=== PATIENT | female | born 1945 | race Caucasian/White ===

== ENCOUNTER 2017-05-03 03:17 | Emergency (ER) | payer OTHER ==
[~2017-05-03] VITALS: Ht 170.2 cm; Wt 78.0 kg
[~2017-05-03 03:17] MED LIST: ASPIR 8181 MG PO; ATORVASTATIN CA40 MG PO; D3-5050000 UNIT PO; ISOSORBIDE MONO30 MG PO; LOSARTAN-HCTZ1 EAC2 PO; METOCLOPRAMIDE10 MG PO; METOPROLOL SUCC50 MG PO; NORVASC5 MG PO; OMEPRAZOLE40 MG PO; TRAZODONE HCL50 MG PO; VALIUM5 MG PO
[2017-05-03] MEDS ORDERED: HYDRALAZINE HCL 20 MG/ML VIAL IV STA (03:30)
[2017-05-03] MEDS ORDERED: ONDANSETRON HCL INJ 2 MG/ML VIAL IV STA (03:32)
[2017-05-03] MEDS ORDERED: HYDROMORPHONE 1MG/1ML INJ IV STA (03:32)
[2017-05-03 03:53] LABS: BASOPHILS # (AUTO) 0.1 (0.0-0.1); BASOPHILS % 0.6 % (0.0-1.0); EOSINOPHILS # (AUTO) 0.3 (0.0-0.4); EOSINOPHILS % 2.7 % (0.0-6.0); HEMATOCRIT 33.9 % (34.2-44.1); HEMOGLOBIN 11.3 g/dL (12.0-16.0); LYMPHOCYTES # (AUTO) 1.9 (1.0-3.2); LYMPHOCYTES % 20.5 % (18.0-39.1); MEAN CORPUSCULAR HEMOGLOBIN 28.8 pg (28-32); MEAN CORPUSCULAR HGB CONC 33.3 g/dL (31-35); MEAN CORPUSCULAR VOLUME 86.3 fL (81-99); MONOCYTES # (AUTO) 0.5 (0.2-0.8); MONOCYTES % 5.5 % (4.4-11.3); NEUTROPHILS # (AUTO) 6.6 (2.1-6.9); NEUTROPHILS % 70.3 % (38.7-80.0); PLATELET COUNT 82 x10e3/uL (140-360); RED BLOOD COUNT 3.93 x10e6/uL (3.6-5.1); RED CELL DISTRIBUTION WIDTH 14.3 % (11.7-14.4)
[2017-05-03 04:09] LABS: ALBUMIN 2.9 g/dL (3.5-5.0); ALBUMIN/GLOBULIN RATIO 0.8 (0.8-2.0); CALCIUM 9.4 mg/dL (8.4-10.2); CREATININE, SERUM 2.51 mg/dL (0.57-1.11)
[2017-05-03 04:15] LABS: CREATINE KINASE MB 1.2 ng/mL (0.00-5.00); TROPONIN I 0.03 ng/mL (0-0.300)
--- NOTE | 2017-05-03 04:36 | Diagnostic Imaging Report ---
EXAMINATION: Head CT without contrast. HISTORY:Severe headache. COMPARISON:CT brain from 05/31/2016 and MRI brain M 06/03/2016. TECHNIQUE: Multidetector axial images were obtained from the foramen magnum to the vertex without contrast. The images were reconstructed using brain and bone algorithms. Thin section brain images were reformatted into coronal and sagittal planes. Intravenous contrast: None IMAGE QUALITY: Acceptable. FINDINGS: Skull/scalp: Unchanged expected postoperative changes from prior suboccipital craniectomy and resection of the posterior arch of C1. Parenchyma: Nonspecific few, scattered supratentorial white matter hypodensity are likely related to small vessel ischemic changes. No acute hemorrhage, mass or acute major vascular territorial infarct. Arteries: No density suggestive of thrombosis. Dural sinuses: No abnormal density suggestive of thrombosis. Ventricles: No hydrocephalus or displacement. Extra-axial spaces: No abnormal density. Brain volume: Normal for age. Craniocervical junction: No mass, Chiari malformation, or basilar invagination. Sella: No mass. Paranasal/mastoid sinuses: Imaged portions unremarkable. IMPRESSION: No acute intracranial abnormality. Expected postoperative changes from prior suboccipital craniectomy/resection of posterior arch of C1. Mild generalized age-related cerebral volume loss and mild supratentorial white matter microvascular ischemic changes. Signed by: Dr. Martha Moore M.D. on 05/03/2017 4:32 AM
--- NOTE | 2017-05-03 04:54 | Diagnostic Imaging Report ---
CHEST SINGLE (PORTABLE), 05/03/2017 3:30 AM Technique: CHEST SINGLE (PORTABLE) Comparison: 05/31/2016. Clinical history: Shortness of breath Findings: Stable appearance of the heart, mediastinum, lungs and pleural spaces. Incidental right midlung calcified granuloma. Impression: 1. Lines/Tubes: None 2. No acute abnormality. Signed by: Dr Leann Russo MD on 05/03/2017 4:50 AM
[2017-05-03] MEDS ORDERED: PROMETHAZINE 12.5MG/ NACL 0.9% 12.5 MG/50 ML BAG IV ONE (05:00)
== END 2017-05-03 06:20 | disposition home or self-care (01) ==
LOC: ER 03:17
DX: R51 Headache (principal); E11.22 Type 2 diabetes mellitus with diabetic chronic kidney disease; I12.9 Hypertensive chronic kidney disease with stage 1 through stage 4 chronic kidney disease, or unspecified chronic kidney disease; N18.9 Chronic kidney disease, unspecified
CPT/HCPCS: 36415; 70450; 71010; 80053; 82550; 82553; 84484; 85025; 90940; 93005; 94760; 96374; 96375; 99284; J0360; J1170; J2405; J2550

== ENCOUNTER 2017-05-15 15:12 | Emergency (ER) | payer OTHER ==
[~2017-05-15] VITALS: Ht 170.2 cm; Wt 78.0 kg
[2017-05-15] MEDS ORDERED: CLONIDINE HCL 0.2 MG TAB PO ONE (16:00)
[2017-05-15 16:40] LABS: BASOPHILS # (AUTO) 0.1 (0.0-0.1); BASOPHILS % 0.6 % (0.0-1.0); EOSINOPHILS # (AUTO) 0.4 (0.0-0.4); EOSINOPHILS % 4.4 % (0.0-6.0); HEMATOCRIT 34.5 % (34.2-44.1); HEMOGLOBIN 11.3 g/dL (12.0-16.0); LYMPHOCYTES # (AUTO) 2.4 (1.0-3.2); LYMPHOCYTES % 25.3 % (18.0-39.1); MEAN CORPUSCULAR HEMOGLOBIN 28.6 pg (28-32); MEAN CORPUSCULAR HGB CONC 32.8 g/dL (31-35); MEAN CORPUSCULAR VOLUME 87.3 fL (81-99); MONOCYTES # (AUTO) 0.6 (0.2-0.8); MONOCYTES % 6.5 % (4.4-11.3); NEUTROPHILS % 62.9 % (38.7-80.0); PLATELET COUNT 62 x10e3/uL (140-360); RED BLOOD COUNT 3.95 x10e6/uL (3.6-5.1); RED CELL DISTRIBUTION WIDTH 13.9 % (11.7-14.4)
--- NOTE | 2017-05-15 16:45 | Diagnostic Imaging Report ---
PROCEDURE: CHEST SINGLE (PORTABLE) COMPARISON: Chest x-ray 05/03/17 INDICATIONS: high blood pressure FINDINGS: Portable frontal image obtained at 1418 hrs. LUNGS: Diffusely hyperinflated. No consolidation or vascular congestion. Calcified granulomata of the right upper lobe are stable. PLEURA: No effusions or pneumothorax. HEART \T\ MEDIASTINUM: The heart is normal in size. Calcifications of the aortic arch are stable. BONES \T\ SOFT TISSUES: No focal osseous lesions. The soft tissues are unremarkable. CONCLUSION: Stable pulmonary hyperinflation suggestive of COPD. Healed granulomatous inflammation. Dictated by: Dinorah Lindsay M.D. on 05/15/2017 at 16:54 Electronically approved by: Dinorah Lindsay M.D. on 05/15/2017 at 16:54
[2017-05-15 16:58] LABS: ALBUMIN 2.7 g/dL (3.5-5.0); ALBUMIN/GLOBULIN RATIO 0.7 (0.8-2.0); ANION GAP 14.8 mmol/L (8-16); CALCIUM 9.1 mg/dL (8.4-10.2); CREATININE, SERUM 2.61 mg/dL (0.57-1.11); POTASSIUM 3.8 mmol/L (3.5-5.1)
[2017-05-15 17:04] LABS: CREATINE KINASE MB 0.8 ng/mL (0.00-5.00); TROPONIN I 0.023 ng/mL (0-0.300)
[2017-05-15] MEDS ORDERED: ONDANSETRON HCL INJ 2 MG/ML VIAL IV STA ×2 (17:41→18:37)
[2017-05-15] MEDS ORDERED: HYDROMORPHONE 2MG/ML INJ ONE (17:54)
[2017-05-15] MEDS ORDERED: HYDROMORPHONE 2MG/ML INJ IV ONE (18:00)
[2017-05-15] MEDS ORDERED: NIFEDIPINE 10 MG CAP SL STA (19:16)
[2017-05-15 21:11] VITALS: BP 151/86
== END 2017-05-15 21:12 | disposition home or self-care (01) ==
LOC: ER 15:12
DX: R51 Headache (principal); I10 Essential (primary) hypertension; E11.9 Type 2 diabetes mellitus without complications; G40.909 Epilepsy, unspecified, not intractable, without status epilepticus
CPT/HCPCS: 36415; 71010; 80053; 82550; 82553; 83880; 84484; 85025; 93005; 99284; J1170; J2405

== ENCOUNTER 2017-05-30 09:42 | Emergency (ER) | payer OTHER ==
[~2017-05-30] VITALS: Ht 170.2 cm; Wt 78.0 kg
[2017-05-30] MEDS ORDERED: ONDANSETRON HCL INJ 2 MG/ML VIAL IV STA (10:30)
[2017-05-30] MEDS ORDERED: SODIUM CHLORIDE 0.9% 500ML 500 ML IV STA (10:30)
[2017-05-30 11:22] LABS: BASOPHILS # (AUTO) 0.1 (0.0-0.1); BASOPHILS % 0.8 % (0.0-1.0); EOSINOPHILS # (AUTO) 0.3 (0.0-0.4); EOSINOPHILS % 3.3 % (0.0-6.0); HEMATOCRIT 42.3 % (34.2-44.1); HEMOGLOBIN 13.7 g/dL (12.0-16.0); LYMPHOCYTES # (AUTO) 2.6 (1.0-3.2); LYMPHOCYTES % 25.9 % (18.0-39.1); MEAN CORPUSCULAR HEMOGLOBIN 28.5 pg (28-32); MEAN CORPUSCULAR HGB CONC 32.4 g/dL (31-35); MEAN CORPUSCULAR VOLUME 87.9 fL (81-99); MONOCYTES # (AUTO) 0.6 (0.2-0.8); MONOCYTES % 5.5 % (4.4-11.3); NEUTROPHILS # (AUTO) 6.5 (2.1-6.9); NEUTROPHILS % 64.1 % (38.7-80.0); PLATELET COUNT 70 x10e3/uL (140-360); RED BLOOD COUNT 4.81 x10e6/uL (3.6-5.1); RED CELL DISTRIBUTION WIDTH 13.8 % (11.7-14.4)
--- NOTE | 2017-05-30 11:23 | Diagnostic Imaging Report ---
Examination: CT BRAIN WO History:Headache x4 days, elevated blood pressure Comparison studies:CT brain, 05/03/2017 Technique: Axial images were obtained from the skull base to the vertex. Coronal and sagittal images reconstructed from the axial data. Findings: Scalp: No abnormalities. Bones: Postoperative changes from prior suboccipital craniectomy. Brain sulci: Appropriate for age. Ventricles: Normal in size and configuration. No hydrocephalus. Extra-axial space: No abnormalities. Parenchyma: No abnormal densities. No masses, hemorrhage, acute or chronic vascular insults. Sellar/suprasellar region: No abnormalities. Craniocervical junction: Patent foramen magnum. No Chiari one malformation. Incidental findings: Vascular calcifications at the carotid siphons.. Impression: 1. No acute intracranial abnormalities. Particularly no hemorrhage. 2. Postoperative changes from prior suboccipital craniectomy. The preliminary report was reviewed and a final report issued by Dr. Kent neuroradiologist on 05/30/2017 at 3:59 PM. Signed by: Dr. Dang Kent M.D. on 05/30/2017 3:59 PM
[2017-05-30 11:42] LABS: ALBUMIN 3.2 g/dL (3.5-5.0); ALBUMIN/GLOBULIN RATIO 0.7 (0.8-2.0); ANION GAP 16.4 mmol/L (8-16); CALCIUM 9.3 mg/dL (8.4-10.2); CREATININE, SERUM 2.55 mg/dL (0.57-1.11); POTASSIUM 4.4 mmol/L (3.5-5.1)
[2017-05-30 11:50] LABS: CREATINE KINASE MB 0.8 ng/mL (0.00-5.00); TROPONIN I 0.035 ng/mL (0-0.300)
[2017-05-30] MEDS ORDERED: HYDROCODONE/APAP 7.5MG-325MG 1 EA TAB PO ONE (12:30)
[2017-05-30 14:28] LABS: BILIRUBIN,URINE NEGATIVE (NEGATIVE); KETONES,URINE NEGATIVE (NEGATIVE); LEUKOCYTE ESTERASE ,URINE NEGATIVE (NEGATIVE); NITRITE,URINE NEGATIVE (NEGATIVE); PROTEIN,URINE DIPSTICK 3+ (NEGATIVE); URINE UROBILINOGEN 0.2 mg/dL (0.2 - 1)
[2017-05-30 14:29] LABS: CLARITY,URINE SL CLOUDY (CLEAR); COLOR,URINE YELLOW (YELLOW)
[2017-05-30 14:45] LABS: BACTERIA,URINE RARE /HPF; EPITHELIAL CELLS,URINE RARE /LPF; RBC,URINE 0-5 /HPF (0-5)
== END 2017-05-30 15:09 | disposition home or self-care (01) ==
LOC: ER 09:42
DX: G44.89 Other headache syndrome (principal); R11.2 Nausea with vomiting, unspecified
CPT/HCPCS: 36415; 70450; 80053; 81001; 82550; 82553; 83690; 84484; 85025; 87086; 99284; J2405; J7040

== ENCOUNTER 2018-03-08 16:33 | Emergency (ER) | payer OTHER ==
[~2018-03-08] VITALS: Ht 170.2 cm; Wt 91.6 kg
--- OUTSIDE RECORDS SUMMARY | 2018-03-08 16:37 | XMS REPORT | Continuity of Care Document ---
Author Author Ericka heraclio Organization Interface Address Unknown Phone Unavailable Problems Problem Status Onset Date Classification Date Reported Comments Source UNK Active 10/02/2017 [facility] I70.213 Active 10/02/2017 [facility] CLAUDICATION Active 02/25/2017 [facility] CCL/LLE ANGIO/DX: CLAUDICATION Active 02/25/2017 [facility] LATH HAND Active 10/20/2016 [facility] CCL/LATH HAND STENT OF RCA/DX: LATH HAND Active 10/20/2016 [facility] POSITIVE STRESS TEST, ANGINA Active 09/25/2016 [facility] CCL/LHC W/ POSS/DX: POSITIVE STRESS TEST Active 09/25/2016 [facility] R51 - HEADACHE G93.5 - COMPRESSION OF BR Active 05/30/2016 [facility] J44.9 - CHRONIC OBSTRUCTIVE PULMONARY Active 02/25/2016 [facility] Z12.11 K21.9 Active 02/27/2015 [facility] THROMBOCYTOPENIA Active 04/20/2014 [facility] Back pain Active Problem 11/24/2017 [facility] Diabetes Active Problem 11/24/2017 [facility] GERD (<span [id number]">Confirmed</span>) Active Problem 11/24/2017 [facility] Hypertension Active Problem 11/24/2017 [facility] Migraine headache Resolved Problem 11/24/2017 [facility] Thrombocytopenia Resolved Problem 11/24/2017 [facility] Abdominal pain Resolved Problem 11/24/2017 [facility] COPD Active Problem 11/24/2017 [facility] Seizure Resolved Problem 05/08/2017 [facility] Seizure Resolved Problem 03/12/2017 [facility] Type 2 diabetes mellitus with diabetic peripheral angiopathy without gangrene 11/24/2017 [facility] Gastro-esophageal reflux disease without esophagitis 11/24/2017 [facility] Atherosclerotic heart disease of [place] coronary artery without angina pectoris 11/24/2017 [facility] Cough 11/24/2017 [facility] Petit mal convulsion Active Problem 11/24/2017 [facility] Atherosclerosis of [place] arteries of extremities with intermittent claudication, bilateral legs 11/14/2017 [facility] ENCOUNTER FOR SCREENING FOR MALIGNANT NE Active [facility] GASTRO-ESOPHAGEAL REFLUX DISEASE WITHOUT Active [facility] 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 Active [facility] CUTANEOUS ABSCESS, UNSPECIFIED Active [facility] HEADACHE Active [facility] ANEMIA, UNSPECIFIED Active [facility] ESSENTIAL (PRIMARY) HYPERTENSION Active [facility] HYPOTHYROIDISM, UNSPECIFIED Active [facility] VITAMIN D DEFICIENCY, UNSPECIFIED Active [facility] NONTOXIC SINGLE THYROID NODULE Active [facility] HYPERLIPIDEMIA, UNSPECIFIED Active [facility] HYPO-OSMOLALITY AND HYPONATREMIA Active [facility] HYPERKALEMIA Active [facility] Medications Medication Details Route Status Patient Instructions Ordering Provider Order Date Source Ciprofloxacin 250 MG Oral Tablet [Cipro] 250 mg=1 tab, PO, Q24H, for UTI, X 5 day, # 5 tab, 0 Refill(s) Active 11/11/2017 [facility] Insulin Glargine 100 UNT/ML Injectable Solution 10 unit, SUB-Q, Daily, 0 Refill(s) Active 11/11/2017 [facility] pantoprazole 40 mg oral enteric coated tablet 40 mg=1 tab, PO, Daily, 0 Refill(s) Active 11/11/2017 [facility] metoprolol tartrate 25 mg oral tablet 25 mg=1 tab, PO, Q12H, 0 Refill(s) Active 11/11/2017 [facility] Hydralazine Hydrochloride 25 MG Oral Tablet 25 mg=1 tab, PO, TID, 0 Refill(s) Active 11/11/2017 [facility] Symbicort 160/4.5 inhalation aerosol with adapter 2 inhalation, INHALATION, RBID, 0 Refill(s) Active 11/11/2017 [facility] Albuterol 0.833 MG/ML / Ipratropium [place] 0.167 MG/ML Inhalant Solution [DuoNeb] 3 mL, NEB, PRN, PRN Respiratory Pathway, 0 Refill(s) Active 11/11/2017 [facility] atorvastatin 40 mg oral tablet 80 mg=2 tab, PO, Bedtime, 0 Refill(s) Active 11/11/2017 [facility] Aspirin 81 MG Chewable Tablet 81 mg=1 tab, PO, Daily, 0 Refill(s) Active 11/11/2017 [facility] cefepime 1 gm, Route: IVPB, [id number], Dosing Weight 90, kg, Start date: 11/10/17 11:00:00 CDT, Duration: 30 day, Stop date: 12/09/17 11:00:00 CDT, ABX Indication: Urinary Tract InfectionNotes: (Same As: Maxipime) MEDICATION WASTE Product Size: 1000 mg Product Wasted: ___ mg No Longer Active 11/10/2017 [facility] Zofran 4 mg, 1 tab, Route: PO, Drug form: TAB, Q8H, Dosing Weight 90, kg, PRN Nausea, Start date: 11/10/17 9:24:00 CDT, Duration: 30 day, Stop date: 12/10/17 9:23:00 CDTNotes: (Same as: Zofran) No Longer Active 11/10/2017 [facility] Hydralazine Hydrochloride 25 MG Oral Tablet 25 mg, 1 tab, Route: PO, Drug form: TAB, TID, Dosing Weight 90, kg, Start date: 11/09/17 17:00:00 CDT, Duration: 30 day, Stop date: 12/09/17 13:00:00 CDTNotes: (Same as: Apresoline) May interfere w/enteral feedings Take With Food. No Longer Active 11/09/2017 [facility] Dulcolax Laxative 10 mg, 1 supp, Route: UT, Drug form: SUPP, Daily, Dosing Weight 90, kg, PRN Constipation, Start date: 11/09/17 8:37:00 CDT, Duration: 30 day, Stop date: 12/09/17 8:36:00 CDTNotes: (Same As: Dulcolax, [place]-Lax) No Longer Active 11/09/2017 [facility] magnesium citrate 58.2 MG/ML Oral Solution 300 ml, Route: PO, Drug Form: LIQ, Dosing Weight 90, kg, ONCE, Start date: 11/09/17 8:37:00 CDT, Stop date: 11/09/17 8:37:00 CDTNotes: (Same as: Citrate of Magnesia) Concentration: 1.745 gm / 30 mL Inactive 11/09/2017 [facility] Vancomycin 750 mg, Route: IVPB, ONCE, Dosing Weight 90, kg, Start date: 11/08/17 23:48:00 CDT, Stop date: 11/08/17 23:48:00 CDT, ABX Indication: BacteremiaNotes: TIME CRITICAL MEDICATION (Same As: Vancocin) Infus ion rate 2001 mg: infuse over 2.5 hours For adult patients only: Round to nearest 250 mg per Medical Staff approval MEDICATION WASTE Product Size: 1000 mg Product Wasted: ___ mg No Longer Active 11/09/2017 [facility] Morphine 6 mg, 3 mL, Route: PO, Drug form: SOLN, Q6H, Dosing Weight 90, kg, PRN Pain Score 7-10, Start date: 11/08/17 23:36:00 CDT, Stop date: 12/08/17 23:35:00 CDTNotes: (Same as:MORPhine Sulfate) No Longer Active 11/09/2017 [facility] Hydralazine Hydrochloride 25 MG Oral Tablet 25 mg, Route: PO, Drug form: TAB, TID, Dosing Weight 90, kg, Start date: 11/08/17 9:00:00 CDT, Duration: 30 day, Stop date: 12/07/17 17:00:00 CDT No Longer Active 11/08/2017 [facility] metoprolol tartrate 25 mg, 1 tab, Route: PO, Drug form: TAB, Q12H, Dosing Weight 90, kg, Start date: 11/07/17 21:00:00 CDT, Duration: 30 day, Stop date: 12/07/17 9:00:00 CDTNotes: (Same as: Lopressor) No Longer Active 11/08/2017 [facility] Hydralazine Hydrochloride 10 MG Oral Tablet 10 mg, 1 tab, Route: PO, Drug form: TAB, TID, Dosing Weight 90, kg, Start date: 11/07/17 17:30:00 CDT, Duration: 30 day, Stop date: 12/07/17 16:00:00 CDTNotes: (Same as: Apresoline) May interfere w/enteral feedings. Take With Food No Longer Active 11/07/2017 [facility] Melatonin 3 MG Extended Release Tablet 3 mg, 1 tab, Route: PO, Drug Form: TAB, Dosing Weight 90, kg, Bedtime, Start date: 11/06/17 21:00:00 CDT, Duration: 30 day, Stop date: 12/05/17 21:00:00 CDTNotes: (Same as: Melatonin) No Longer Active 11/07/2017 [facility] Symbicort 160/4.5 inhalation aerosol with adapter 2 inhalation, Route: INHALATION, Drug Form: AERO/A, Dosing Weight 90, kg, RBID, Start date: 11/06/17 17:15:00 CDT, Duration: 30 day, Stop date: 12/06/17 8:00:00 CDTNotes: (Same as: Symbicort) WASTE: Aerosol - Return to Pharmacy No Longer Active 11/06/2017 [facility] Tylenol 650 mg, 2 tab, Route: PO, Drug form: TAB, Q6H, Dosing Weight 90, kg, PRN For Temp > 100.4 F, Start date: 11/06/17 15:35:00 CDT, Duration: 30 day, Stop date: 12/06/17 15:34:00 CDTNotes: Do not exceed 4 gm/day. (Same as: Tylenol) No Longer Active 11/06/2017 [facility] tramadol hydrochloride 50 MG Oral Tablet 50 mg, 1 tab, Route: PO, Drug form: TAB, Q12H, Dosing Weight 90, kg, PRN Pain Score 1-3, Start date: 11/06/17 10:54:00 CDT, Duration: 30 day, Stop date: 12/06/17 10:53:00 CDTNotes: Not to exceed 400mg/day. (Same As: Ultram) No Longer Active 11/06/2017 [facility] Ondansetron 8 mg, Route: IV, ONCE, Dosing Weight 90, kg, Priority: STAT, Start date: 11/05/17 9:51:00 CDT, Stop date: 11/05/17 9:51:00 CDT Inactive 11/05/2017 [facility] Valium 2 mg, 1 tab, Route: PO, Drug form: TAB, BID, Dosing Weight 90, kg, PRN as needed for anxiety, Priority: STAT, Start date: 11/05/17 9:51:00 CDT, Duration: 7 day, Stop date: 11/12/17 9:50:00 CDTNotes: (Same as: Valium) No Longer Active 11/05/2017 [facility] Omeprazole 40 mg, Route: PO, Drug form: DRC, Daily, Dosing Weight 90, kg, Start date: 11/05/17 9:00:00 CDT, Duration: 30 day, Stop date: 12/04/17 9:00:00 CDT No Longer Active 11/05/2017 [facility] Insulin Glargine 100 UNT/ML Injectable Solution 10 unit, 0.1 mL, Route: SUB-Q, Drug form: SOLN, Daily, Dosing Weight 90, kg, Start date: 11/05/17 9:00:00 CDT, Duration: 30 day, Stop date: 12/04/17 9:00:00 CDTNotes: (Same as: Joseph) Do not hold insulin without contacting prescriber WASTE: F/P - Black; E - TV Volume Wizard Appsh Bin "single patient use only" No Longer Active 11/05/2017 [facility] Protonix 40 mg, 1 tab, Route: PO, Drug form: ECTAB, Daily, Start date: 11/05/17 9:00:00 CDT, Duration: 30 day, Stop date: 12/04/17 9:00:00 CDTNotes: Tablet should not be chewed or crushed. (Same as: Protonix) No Longer Active 11/05/2017 [facility] Morphine 12 mg, 6 mL, Route: PO, Drug form: SOLN, Q6H, Dosing Weight 90, kg, PRN Pain Score 1-3, Start date: 11/05/17 8:03:00 CDT, Duration: 30 day, Stop date: 12/05/17 8:02:00 CDTNotes: (Same as:MORPhine Sul fate) No Longer Active 11/05/2017 [facility] Insulin Lispro 4 unit, 0.04 mL, Route: SUB-Q, Drug form: SOLN, Bedtime, Dosing Weight 90, kg, PRN Blood Glucose Results, Start date: 11/04/17 22:05:00 CDT, Duration: 30 day, Stop date: 12/04/17 22:04:00 CDTNotes: (Same as: Humalog ) Roll in palms of hands gently; Do not shake `vigorously. "Single Patient Use Only " WASTE: F/P - Black; E - Municipal Trash Bin Stable for 28 days at room temperature. Expires in days from Date No Longer Active 11/05/2017 [facility] Dextrose 50% Syringe 25 mL, Route: IVP, Dosing Weight 90, kg, PRN, PRN Blood Glucose Results, Start date: 11/04/17 22:05:00 CDT, Duration: 30 day, Stop date: 12/04/17 22:04:00 CDT Inactive 11/05/2017 [facility] Glucagon 1 mg, Route: IM, PRN, Dosing Weight 90, kg, PRN Blood Glucose Results, Start date: 11/04/17 22:05:00 CDT, Duration: 30 day, Stop date: 12/04/17 22:04:00 CDT Inactive 11/05/2017 [facility] atorvastatin 80 mg, 2 tab, Route: PO, Drug form: TAB, Bedtime, Dosing Weight 90, kg, Start date: 11/04/17 21:00:00 CDT, Duration: 30 day, Stop date: 12/03/17 21:00:00 CDTNotes: (Same as: Lipitor) No Longer Active 11/05/2017 [facility] Aspirin 81 MG Chewable Tablet 81 mg, 1 tab, Route: PO, Drug form: CHEWTAB, Daily, Dosing Weight 90, kg, Start date: 11/04/17 18:47:00 CDT, Duration: 30 day, Stop date: 12/04/17 9:00:00 CDTNotes: Take with food. No Longer Active 11/04/2017 [facility] Dextrose 50% Syringe 25 gm, 50 mL, Route: IVP, Drug Form: INJ, Dosing Weight 90, kg, PRN, PRN Blood Glucose Results, Start date: 11/04/17 18:02:00 CDT, Duration: 30 day, Stop date: 12/04/17 18:01:00 CDT No Longer Active 11/04/2017 [facility] Glucagon 1 mg, Route: IM, Drug form: PDR/INJ, PRN, Dosing Weight 90, kg, PRN Blood Glucose Results, Start date: 11/04/17 18:02:00 CDT, Duration: 30 day, Stop date: 12/04/17 18:01:00 CDT No Longer Active 11/04/2017 [facility] Insulin Lispro 1 unit, 0.01 mL, Route: SUB-Q, Drug form: SOLN, TID-Before Meals, Dosing Weight 90, kg, PRN Blood Glucose Results, Start date: 11/04/17 18:02:00 CDT, Duration: 30 day, Stop date: 12/04/17 18:01:00 CD TNotes: (Same as: Humalog ) Roll in palms of hands gently; Do not shake `vigorously. "Single Patient Use Only " WASTE: F/P - Black; E - Municipal Trash Bin Stable for 28 days at room temperature. Expires in days from Date No Longer Active 11/04/2017 [facility] Albuterol 0.833 MG/ML / Ipratropium [place] 0.167 MG/ML Inhalant Solution [DuoNeb] 3 ml, Route: NEB, Drug Form: SOLN, Dosing Weight 90, kg, PRN, PRN Respiratory Pathway, Start date: 11/04/17 18:02:00 CDT, Duration: 30 day, Stop date: 12/04/17 18:01:00 CDTNotes: (Same as: Duoneb) No Longer Active 11/04/2017 [facility] Labetalol 10 mg, 2 mL, Route: IV, Drug form: INJ, Q6H, Dosing Weight 90, kg, PRN Hypertension, Start date: 11/04/17 18:01:00 CDT, Duration: 30 day, Stop date: 12/04/17 18:00:00 CDTNotes: (Same as: Reina Burkett) Push over 2 minutes Give bolus over 2-3 minutes. No Longer Active 11/04/2017 [facility] Hydralazine 10 mg, 0.5 mL, Route: IV, Drug form: INJ, Q4H, Dosing Weight 90, kg, PRN Hypertension, Start date: 11/04/17 18:01:00 CDT, Duration: 30 day, Stop date: 12/04/17 18:00:00 CDTNotes: (Same as: Apresoline) Push over 5 minutes No Longer Active 11/04/2017 [facility] Dilaudid 0.5 mg, Route: IV, Q5Min, Dosing Weight 90, kg, PRN Pain Score 6-10, Start date: 11/04/17 17:59:00 CDT, Duration: 2 doses or times, Stop date: Limited # of times Inactive 11/04/2017 [facility] normal saline 0.9% IV 1000 mL 1,000 mL, Rate: 100 ml/hr, Infuse over: 10 hr, Route: IV, Dosing Weight 90 kg, Total Volume: 1,000, Start date: 11/04/17 17:16:00 CDT, Duration: 30 day, Stop date: 12/04/17 17:15:00 CDT, 2.06, m2 Inactive 11/04/2017 [facility] Morphine 4 mg, 4 mL, Route: IVP, Drug form: INJ, Q3H, Dosing Weight 90, kg, PRN Pain Score 1-3, Start date: 11/04/17 17:16:00 CDT, Duration: 30 day, Stop date: 12/04/17 17:15:00 CDTNotes: (Same as: Astramorph-PF) No Longer Active 11/04/2017 [facility] Ondansetron 4 mg, Route: IVP, ONCE, Dosing Weight 90, kg, PRN Nausea & Vomiting, Start date: 11/04/17 16:56:00 CDT Inactive 11/04/2017 [facility] Promethazine 6.25 mg, Route: IVPB, ONCE, Dosing Weight 90, kg, PRN Nausea & Vomiting, Start date: 11/04/17 16:56:00 CDT Inactive 11/04/2017 [facility] Fentanyl 50 microgram, Route: IVP, Q5Min, Dosing Weight 90, kg, PRN Pain Score 7-10, Priority: Routine, Start date: 11/04/17 16:56:00 CDT, Duration: 2 doses or times, Stop date: Limited # of times Inactive 11/04/2017 [facility] Diphenhydramine 12.5 mg, Route: IVP, Drug form: INJ, Q6H, Dosing Weight 90, kg, PRN Itching, Start date: 11/04/17 16:56:00 CDT, Duration: 30 day, Stop date: 12/04/17 16:55:00 CDT Inactive 11/04/2017 [facility] Albuterol 0.83 MG/ML Inhalant Solution 2.49 mg, Route: NEB, Q20Min, Dosing Weight 90, kg, PRN Wheezing, Priority: STAT, Start date: 11/04/17 16:56:00 CDT, Duration: 30 day, Stop date: 12/04/17 16:55:00 CDT Inactive 11/04/2017 [facility] Naloxone 0.4 mg, Route: IVP, Q2MIN, Dosing Weight 90, kg, PRN Narcotic Reversal, Start date: 11/04/17 16:56:00 CDT, Duration: 8 doses or times, Stop date: Limited # of times Inactive 11/04/2017 [facility] Flumazenil 0.2 mg, Route: IVP, PRN, Dosing Weight 90, kg, PRN Benzodiazepine Reversal, Initial dose, Start date: 11/04/17 16:56:00 CDT, Duration: 30 day, Stop date: 12/04/17 16:55:00 CDT Inactive 11/04/2017 [facility] Calcium Chloride 0.0014 MEQ/ML / Potassium Chloride 0.004 MEQ/ML / Sodium Chloride 0.103 MEQ/ML / Sodium Lactate 0.028 MEQ/ML Injectable Solution 1,000 mL, Rate: 125 ml/hr, Infuse over: 8 hr, Route: IV, Dosing Weight 90 kg, Total Volume: 1,000, Start date: 11/04/17 16:56:00 CDT, Duration: 30 day, Stop date: 12/04/17 16:55:00 CDT, 2.06, m2 Inactive 11/04/2017 [facility] Labetalol 10 mg, Route: IVP, Q5Min, Dosing Weight 90, kg, PRN Elevated BP, Start date: 11/04/17 16:56:00 CDT, Duration: 5 doses or times, Stop date: Limited # of times Inactive 11/04/2017 [facility] esmolol 10 mg, Route: IVP, Q5Min, Dosing Weight 90, kg, PRN Other -See Comment, Start date: 11/04/17 16:56:00 CDT, Duration: 5 doses or times, Stop date: Limited # of times Inactive 11/04/2017 [facility] Hydralazine 10 mg, Route: IVP, Q20Min, Dosing Weight 90, kg, PRN Elevated BP, Start date: 11/04/17 16:56:00 CDT, Duration: 2 doses or times, Stop date: Limited # of times Inactive 11/04/2017 [facility] Meperidine 12.5 mg, Route: IVP, Q30Min, Dosing Weight 90, kg, PRN Other -See Comment, For shivering, Start date: 11/04/17 16:56:00 CDT, Duration: 2 doses or times, Stop date: Limited # of times Inactive 11/04/2017 [facility] hydrALAZINE (ANES) Route: IV, Drug form: INJ, ONCE, Stop date: 11/04/17 16:43:00 CDT Inactive 11/04/2017 [facility] glycopyrrolate (ANES) Route: IV, Drug form: INJ, ONCE, Stop date: 11/04/17 16:43:00 CDT Inactive 11/04/2017 [facility] neostigmine (ANES) Route: IV, Drug form: INJ, ONCE, Stop date: 11/04/17 16:43:00 CDT Inactive 11/04/2017 [facility] protamine (ANES) 10 mg Route: IV, Drug form: INJ, Start date: 11/04/17 16:03:00 CDT, Stop date: 11/04/17 17:03:00 CDT Inactive 11/04/2017 [facility] heparin (ANES) Route: IV, Drug form: INJ, ONCE, Stop date: 11/04/17 15:52:00 CDT Inactive 11/04/2017 [facility] albumin human (ANES) 250 mg Route: IV, Drug form: INJ, Start date: 11/04/17 15:45:00 CDT, Stop date: 11/04/17 16:45:00 CDT Inactive 11/04/2017 [facility] norepinephrine (ANES) Route: IV, Drug form: INJ, ONCE, Stop date: 11/04/17 15:37:00 CDT Inactive 11/04/2017 [facility] ceFAZolin (ANES) Route: IV, Drug form: INJ, ONCE, Stop date: 11/04/17 15:32:00 CDT Inactive 11/04/2017 [facility] lidocaine (ANES) Route: IV, Drug form: INJ, ONCE, Stop date: 11/04/17 15:32:00 CDT Inactive 11/04/2017 [facility] rocuronium (ANES) Route: IV, Drug form: INJ, ONCE, Stop date: 11/04/17 15:32:00 CDT Inactive 11/04/2017 [facility] propofol (ANES) Route: IV, Drug form: INJ, ONCE, Stop date: 11/04/17 15:32:00 CDT Inactive 11/04/2017 [facility] famotidine (ANES) Route: IV, Drug form: INJ, ONCE, Stop date: 11/04/17 15:22:00 CDT Inactive 11/04/2017 [facility] diphenhydrAMINE (ANES) Route: IV, Drug form: INJ, ONCE, Stop date: 11/04/17 15:22:00 CDT Inactive 11/04/2017 [facility] metoclopramide (ANES) Route: IV, Drug form: INJ, ONCE, Stop date: 11/04/17 15:22:00 CDT Inactive 11/04/2017 [facility] hydrocortisone (ANES) Route: IV, Drug form: INJ, ONCE, Stop date: 11/04/17 15:22:00 CDT Inactive 11/04/2017 [facility] fentaNYL (ANES) Route: IV, Drug form: INJ, ONCE, Stop date: 11/04/17 15:22:00 CDT Inactive 11/04/2017 [facility] midazolam (ANES) Route: IV, Drug form: SOLN, ONCE, Stop date: 11/04/17 15:22:00 CDT Inactive 11/04/2017 [facility] Sodium Chloride 0.9% IV (ANES) 1000 mL Route: IV, Total Volume: 1,000, Start date: 11/04/17 14:20:00 CDT, Stop date: 11/04/17 15:20:00 CDT Inactive 11/04/2017 [facility] Lactated Ringers Injection IV (ANES) 1000 mL Route: IV, Total Volume: 1,000, Start date: 11/04/17 13:49:00 CDT, Stop date: 11/04/17 14:49:00 CDT Inactive 11/04/2017 [facility] vancomycin (ANES) 1000 mg Route: IV, Drug form: INJ, Start date: 11/04/17 13:49:00 CDT, Stop date: 11/04/17 14:49:00 CDT Inactive 11/04/2017 [facility] Acetylcysteine 200 MG/ML Inhalant Solution 800 mg, 4 mL, Route: PO, Drug form: SOLN, ONCE, Dosing Weight 90, kg, Start date: 11/04/17 10:56:00 CDT, Stop date: 11/04/17 10:56:00 CDT Inactive 11/04/2017 [facility] Insulin regular 4 unit, Route: IV, ONCE, Dosing Weight 90, kg, Start date: 11/04/17 10:32:00 CDT, Stop date: 11/04/17 10:32:00 CDT Inactive 11/04/2017 [facility] Albuterol 0.833 MG/ML / Ipratropium [place] 0.167 MG/ML Inhalant Solution 3 mL, Route: NEB, Dosing Weight 90, kg, ONCE, STAT, Start date: 11/04/17 10:23:00 CDT, Stop date: 11/04/17 10:23:00 CDT Inactive 11/04/2017 [facility] Calcium Chloride 0.0014 MEQ/ML / Potassium Chloride 0.004 MEQ/ML / Sodium Chloride 0.103 MEQ/ML / Sodium Lactate 0.028 MEQ/ML Injectable Solution 1,000 mL, Rate: 25 ml/hr, Infuse over: 40 hr, Route: IV, Dosing Weight 90 kg, Total Volume: 1,000, Start date: 11/04/17 10:23:00 CDT, Duration: 30 day, Stop date: 12/04/17 10:22:00 CDT, 2.06, m2 Inactive 11/04/2017 [facility] Vancomycin 1 gm, Route: IVPB, Drug form: INJ, PRE OP, Dosing Weight 90, kg, Start date: 10/29/17 9:00:00 CDT, Duration: 1 day, Stop date: 10/30/17 8:59:00 CDT, ABX Indication: Surgical ProphylaxisNotes: TIME CRITICAL MEDICATION (Same As: Vancocin) Infusion rate 2001 mg: infuse over 2.5 hours For adult patients only: Round to nearest 250 mg per Medical Staff approval MEDICATION WASTE Product Size: 1000 mg Product Wasted: ___ mg No Longer Active 10/29/2017 [facility] Ancef + sterile water 20 mL 2 gm, Route: IV, PRE OP, Dosing Weight 90, kg, Start date: 10/29/17 9:00:00 CDT, Duration: 1 day, Stop date: 10/30/17 8:59:00 CDT, ABX Indication: Surgical ProphylaxisNotes: (Same As: Ancef, Kefzol) MEDICATION WASTE Product Size: 1000 mg Product Wasted: ___ mg No Longer Active 10/29/2017 [facility] Acetylcysteine 200 MG/ML Inhalant Solution 800 mg, 4 mL, Route: PO, Drug form: SOLN, PRE OP, Dosing Weight 92.727, kg, Start date: 10/29/17 9:00:00 CDT, Duration: 1 day, Stop date: 10/30/17 8:59:00 CDT No Longer Active 10/29/2017 [facility] Unknown Home Medication See Instructions, 11 units SQ at bedtime, Refill(s) 0 No Longer Active 10/29/2017 [facility] normal saline 0.9% IV 1,000 mL 1,000 mL, Rate: 150 ml/hr, Infuse over: 6.7 hr, Route: IV, Dosing Weight 90 kg, Total Volume: 1,000, Start date: 10/29/17 8:54:00 CDT, Duration: 30 day, Stop date: 11/28/17 8:53:00 CDT, 2.06, m2 No Longer Active 10/29/2017 [facility] Vancomycin 1 gm, Route: IV, Drug form: INJ, PRE OP, Dosing Weight 94.091, kg, Start date: 08/18/17 10:00:00 CDT, Duration: 1 day, Stop date: 08/19/17 9:59:00 CDT, ABX Indication: Surgical ProphylaxisNotes: TIME CR ITICAL MEDICATION (Same As: Vancocin) Infusion rate 2001 mg: infuse over 2.5 hours For adult patients only: Round to nearest 250 mg per Medical Staff approval MEDICATION WASTE Product Size: 1000 mg Product Wasted: ___ mg No Longer Active 08/18/2017 [facility] Ancef + sterile water 20 mL 2 gm, Route: IV, PRE OP, Dosing Weight 94.091, kg, Start date: 08/18/17 10:00:00 CDT, Duration: 1 day, Stop date: 08/19/17 9:59:00 CDT, ABX Indication: Surgical ProphylaxisNotes: (Same As: AncefBarberfzol) MEDICATION WASTE Product Size: 1000 mg Product Wasted: ___ mg No Longer Active 08/18/2017 [facility] Fluticasone propionate 0.05 MG/ACTUAT Metered Dose Nasal [place] 2 spray, NASAL, Daily, 0 Refill(s) No Longer Active 08/18/2017 [facility] spironolactone 25 mg oral tablet 25 mg=1 tab, PO, Daily, 0 Refill(s) No Longer Active 08/18/2017 [facility] Sodium Chloride 0.9% (Bolus) IV 250 mL, 250 ml/hr, Infuse Over: 1 hr, Route: IV, 250, Drug form: INJ, ONCALL, Priority: Routine, Dosing Weight 94.091 kg, Start date: 03/09/17 11:00:00 CDT, Duration: 1 doses or times Inactive 03/09/2017 [facility] sodium chloride 0.9% 1000 ml INJ 750 mL 750 mL, Rate: 75 ml/hr, Infuse over: 10 hr, Route: IV, Dosing Weight 94.091 kg, Total Volume: 750, Start date: 03/09/17 10:30:00 CDT, Duration: 24 hr, Stop date: 03/10/17 10:29:00 CDT Inactive 03/09/2017 [facility] Diphenhydramine 50 mg, 1 mL, Route: IVP, Drug form: INJ, ONCE, Dosing Weight 94.091, kg, Start date: 03/09/17 7:30:00 CDT, Stop date: 03/09/17 7:30:00 CDTNotes: (Same as: Benadryl) Inactive 03/09/2017 [facility] methylPREDNISolone SODium SUCCinate 125 mg, 2 mL, Route: IVP, Drug form: INJ, ONCE, Dosing Weight 94.091, kg, Start date: 03/09/17 7:30:00 CDT, Stop date: 03/09/17 7:30:00 CDTNotes: (Same as:Solu-MEDROL, A- Methapred) Inactive 03/09/2017 [facility] Famotidine 20 mg, 2 mL, Route: IVP, Drug form: INJ, ONCE, Dosing Weight 94.091, kg, Start date: 03/09/17 7:30:00 CDT, Stop date: 03/09/17 7:30:00 CDTNotes: (Same as: Pepcid) Can be dilute in 5-10cc NS IVP: Slow IV push over at least 2 minutes. Inactive 03/09/2017 [facility] Acetaminophen 325 MG / Hydrocodone Bitartrate 5 MG Oral Tablet [[place] 5/325] 0.5 tab, PO, BID, PRN, # 30 tab, 0 Refill(s) Active 03/09/2017 [facility] glimepiride 4 mg oral tablet 4 mg=1 tab, PO, BID, # 90 tab, 1 Refill(s) Active 03/09/2017 [facility] omeprazole 40 mg oral delayed release capsule 40 mg=1 cap, PO, Daily, # 90 cap, 0 Refill(s) Active 03/09/2017 [facility] lisinopril 10 mg oral tablet 10 mg=1 tab, PO, Daily, # 90 tab, 1 Refill(s) Active 03/09/2017 [facility] isosorbide mononitrate 60 mg oral tablet, extended release 60 mg=1 tab, PO, QAM, # 90 tab, 3 Refill(s) Active 03/09/2017 [facility] sodium chloride 0.9% 1000 ml INJ 1,000 mL 1,000 mL, Rate: 75 ml/hr, Infuse over: 13.3 hr, Route: IVPB, Dosing Weight 94.091 kg, Total Volume: 1,000, Start date: 03/09/17 6:53:00 CDT, Duration: 30 day, Stop date: 04/08/17 6:52:00 INVESTMENT DIRECTOR Inactive 03/09/2017 [facility] Cozaar 100 mg, 2 tab, Route: PO, Drug form: TAB, Daily, Start date: 10/21/16 9:00:00 CDT, Duration: 30 day, Stop date: 11/19/16 9:00:00 CDTNotes: (Same as: Cozaar) No Longer Active 10/21/2016 [facility] Microzide 12.5 mg, 1 cap, Route: PO, Drug form: CAP, Daily, Start date: 10/21/16 9:00:00 CDT, Duration: 30 day, Stop date: 11/19/16 9:00:00 CDTNotes: (Same as: Microzide) With food. No Longer Active 10/21/2016 [facility] metoprolol extended release 50 mg, 1 tab, Route: PO, Drug form: ERTAB, Daily, Start date: 10/21/16 9:00:00 CDT, Duration: 30 day, Stop date: 11/19/16 9:00:00 CDTNotes: (Same as: Toprol XL) May split tab, but do not crush. No Longer Active 10/21/2016 [facility] Hydrochlorothiazide 12.5 MG / Losartan Potassium 100 MG Oral Tablet 1 tab, Route: PO, Drug Form: TAB, Dosing Weight 90.455, kg, Daily, Start date: 10/21/16 9:00:00 CDT, Duration: 30 day, Stop date: 11/19/16 9:00:00 CDT No Longer Active 10/21/2016 [facility] Fluticasone propionate 0.05 MG/ACTUAT Metered Dose Nasal [place] 1 spray, Route: NASAL, Drug Form: SPRY, Dosing Weight 90.455, kg, Daily, Start date: 10/21/16 9:00:00 CDT, Duration: 30 day, Stop date: 11/19/16 9:00:00 CDTNotes: (Same as: Flonase) No Longer Active 10/21/2016 [facility] aspirin 81 mg tablet, enteric coated 81 mg, 1 tab, Route: PO, Drug form: ECTAB, Daily, Dosing Weight 90.455, kg, Start date: 10/21/16 9:00:00 CDT, Duration: 30 day, Stop date: 11/19/16 9:00:00 CDTNotes: Do not crush or chew. (Same As: Ecotrin) No Longer Active 10/21/2016 [facility] Amlodipine 5 mg, 1 tab, Route: PO, Drug form: TAB, Daily, Dosing Weight 90.455, kg, Start date: 10/21/16 9:00:00 CDT, Duration: 30 day, Stop date: 11/19/16 9:00:00 CDTNotes: (Same as: Norvasc) No Longer Active 10/21/2016 [facility] atorvastatin 40 mg, 1 tab, Route: PO, Drug form: TAB, Bedtime, Dosing Weight 90.455, kg, Start date: 10/20/16 21:00:00 CDT, Duration: 30 day, Stop date: 11/18/16 21:00:00 CDTNotes: (Same as: Lipitor) Inactive 10/21/2016 [facility] Metformin hydrochloride 1000 MG Oral Tablet 1,000 mg, 1 tab, Route: PO, Drug form: TAB, BID, Dosing Weight 90.455, kg, Start date: 10/20/16 17:00:00 CDT, Duration: 30 day, Stop date: 11/19/16 9:00:00 CDT Inactive 10/20/2016 [facility] Symbicort 160/4.5 inhalation aerosol with adapter 2 inhalation, Route: INHALER, Drug Form: AERO/A, Dosing Weight 90.455, kg, BID, Start date: 10/20/16 17:00:00 CDT, Duration: 30 day, Stop date: 11/19/16 9:00:00 CDTNotes: (Same as: Symbicort) WASTE: Aerosol - Return to Pharmacy Inactive 10/20/2016 [facility] 200 ACTUAT Albuterol 0.09 MG/ACTUAT Metered Dose Inhaler [ProAir HFA] 1 puff, Route: INHALER, Drug Form: AERO/A, Dosing Weight 90.455, kg, Q4H, PRN Wheezing, Start date: 10/20/16 12:05:00 CDT, Duration: 30 day, Stop date: 11/19/16 12:04:00 CDTNotes: Same as: Ventolin HFA WASTE: Aerosol - Return to Pharmacy Inactive 10/20/2016 [facility] Nitroglycerin 0.4 mg, 1 tab, Route: SL, Drug form: TAB, Q5Min, Dosing Weight 90.455, kg, PRN Chest Pain, Start date: 10/20/16 12:00:00 CDT, Duration: 3 doses or times, Stop date: Limited # of timesNotes: (Same as: Nitroquick, Nitrostat) "Do Not Crush" Sublingual tablet Inactive 10/20/2016 [facility] Sodium Chloride 0.154 MEQ/ML Injectable Solution 250 mL, 250 ml/hr, Infuse Over: 1 hr, Route: IV, 250, Drug form: INJ, ONCE, Dosing Weight 90.455 kg, Start date: 10/20/16 12:00:00 CDT, Duration: 1 doses or times, Stop date: 10/20/16 12:00:00 CDT Inactive 10/20/2016 [facility] Insulin regular 10 unit, 0.1 mL, Route: SUB-Q, Drug form: SOLN, ONCE, Dosing Weight 90.455, kg, Start date: 10/20/16 8:10:00 CDT, Stop date: 10/20/16 8:10:00 CDTNotes: (Same as: Humulin R) Roll in palms of hands gen tly; Do not shake vigorously. "single patient use only" (Restricted to patients requiring a dose > 60 units) WASTE: F/P - Black; E - Municipal Trash Bin Stable for 28 days at room temperature Expires in days from Date Inactive 10/20/2016 [facility] Benadryl 50 mg, 1 mL, Route: IV, Drug form: INJ, ONCALL, Start date: 10/20/16 7:00:00 CDT, Duration: 1 doses or timesNotes: (Same as: Benadryl) Inactive 10/20/2016 [facility] famotidine 20 mg, 2 mL, Route: IVP, Drug form: INJ, ONCALL, Start date: 10/20/16 7:00:00 CDT, Duration: 1 doses or timesNotes: (Same as: Pepcid) Can be dilute in 5-10cc NS IVP: Slow IV push over at least 2 minutes. Inactive 10/20/2016 [facility] methylPREDNISolone 125 mg, 2 mL, Route: IV, Drug form: INJ, ONCALL, Start date: 10/20/16 7:00:00 CDT, Duration: 1 doses or timesNotes: (Same as:Solu-MEDROL, A-Methapred) Inactive 10/20/2016 [facility] Hydrochlorothiazide 12.5 MG / Losartan Potassium 100 MG Oral Tablet 1 tab, PO, Daily, # 30 tab, 0 Refill(s) Active 10/20/2016 [facility] Fluticasone propionate 0.05 MG/ACTUAT Metered Dose Nasal [place] 1 spray, NASAL, Daily, 0 Refill(s) Active 10/20/2016 [facility] metoprolol 50 mg oral tablet, extended release 50 mg=1 tab, PO, Daily, # 30 tab, 0 Refill(s) Active 10/20/2016 [facility] Metoclopramide 5 MG Oral Tablet 5 mg=1 tab, PO, QID-Before Meals, PRN as needed, 0 Refill(s) Active 10/20/2016 [facility] amLODIPine 5 mg oral tablet 5 mg=1 tab, PO, Daily, # 30 tab, 0 Refill(s) Active 10/20/2016 [facility] aspirin 81 mg tablet, enteric coated 81 mg=1 tab, PO, Daily, # 90 tab, 3 Refill(s) Active 10/20/2016 [facility] sodium chloride 0.9% 1000 ml INJ 1,000 mL 1,000 mL, Rate: 100 ml/hr, Infuse over: 10 hr, Route: IVPB, Dosing Weight 90.455 kg, Total Volume: 1,000, Start date: 10/20/16 6:26:00 CDT, Duration: 30 day, Stop date: 11/19/16 6:25:00 CDT Inactive 10/20/2016 [facility] Sodium Chloride 0.154 MEQ/ML Injectable Solution 1,000 mL, Rate: 25 ml/hr, Infuse over: 40 hr, Route: IV, Dosing Weight 71.818 kg, Total Volume: 1,000, Start date: 03/13/15 8:51:00, Duration: 30 day, Stop date: 04/12/15 8:50:00 Inactive 03/13/2015 [facility] Symbicort 160/4.5 inhalation aerosol with adapter 2 puff, INHALER, BID, # 1 ea, 3 Refill(s) Active 03/12/2015 [facility] 200 ACTUAT Albuterol 0.09 MG/ACTUAT Metered Dose Inhaler [ProAir HFA] 1 puff, INHALER, Q4H, PRN for wheezing, # 8.5 gm, 0 Refill(s) Active 03/12/2015 [facility] MethylPREDNISolone Dose Pack 4 mg oral tablet See Instructions, PO, Daily, Use as directed on label., # 1 Pack, 0 Refill(s) Active 03/12/2015 [facility] doxycycline hyclate 100 mg oral tablet 100 mg=1 tab, PO, Q12H, # 20 tab, 0 Refill(s) Active 03/12/2015 [facility] Centrum Daily, 0 Refill(s) Active 03/12/2015 [facility] atorvastatin 40 mg oral tablet 40 mg=1 tab, PO, Bedtime, # 30 tab, 0 Refill(s) Active 03/12/2015 [facility] Acetaminophen 300 MG / butalbital 50 MG / Caffeine 40 MG Oral Capsule [Fioricet] 1 cap, PO, Q4H, PRN Headache, Do not exceed 6 capsules in 24 hours, # 60 cap, 0 Refill(s)Special Instructions: Do not exceed 6 capsules in 24 hours Active 04/25/2014 [facility] Vitamin C PO, Daily, 0 Refill(s) Active 04/25/2014 [facility] diazepam 5 mg oral tablet 5 mg=1 tab, PO, QID, Anxiety, 0 Refill(s) Active 04/25/2014 [facility] docosahexaenoic acid 200 MG / Eicosapentaenoic Acid 300 MG / Vitamin E 1 UNT Oral Capsule PO, Daily, 0 Refill(s) Active 04/25/2014 [facility] Hydrochlorothiazide 25 MG / Losartan Potassium 100 MG Oral Tablet 1 tab, PO, Daily, # 30 tab, 0 Refill(s) Active 04/25/2014 [facility] Acetaminophen 325 MG / Hydrocodone Bitartrate 5 MG Oral Tablet [[place] 5/325] 1-2 tab, PO, Q4-6H, Pain, # 30 tab, 0 Refill(s) Active 04/25/2014 [facility] Furosemide 20 MG Oral Tablet 20 mg=1 tab, PO, Daily, # 30 tab, 0 Refill(s) Active 04/25/2014 [facility] Metformin hydrochloride 1000 MG Oral Tablet 1,000 mg=1 tab, PO, BID, # 30 tab, 0 Refill(s) Active 04/25/2014 [facility] Trazodone Hydrochloride 50 MG Oral Tablet PO, Bedtime, 0 Refill(s) Active 04/25/2014 [facility] azaTHIOprine 50 mg oral tablet 50 mg=1 tab, PO, Daily, 0 Refill(s) Active 04/25/2014 [facility] Vitamin B-12 500 mcg oral tablet 2,500 microgram=5 tab, PO, 0 Refill(s) Active 04/25/2014 [facility] Metoclopramide 5 MG Oral Tablet PO, BID, 0 Refill(s) Active 04/25/2014 [facility] omeprazole 40 mg oral delayed release capsule 40 mg=1 cap, PO, Daily, # 30 cap, 0 Refill(s) Active 04/25/2014 [facility] Vitamin D3 1000 intl units oral capsule 1,000 IntlUnit=1 cap, PO, Daily, # 100 cap, 0 Refill(s) Active 04/25/2014 [facility] Allergies, Adverse Reactions, Alerts Substance Category Reaction Severity Reaction type Status Date Reported Comments Source codeine Assertion Drug allergy Active [facility] contrast media (iodine-based) Assertion Drug allergy Active [facility] Dilantin Assertion Drug allergy Active [facility] PHENobarbital Sodium Assertion Drug allergy Active [facility] TEGretol Assertion Drug allergy Active [facility] yuan-type local anesthetics Assertion Drug allergy Active [facility] Immunizations Immunization Date Given Site Status Last Updated Comments Source Hx pneumococcal vaccine 06/19/2017 Left Arm completed [facility] Results Order Name Results Value Reference Range Date Interpretation Comments Source HEMATOLOGY Platelet 60 K/CMM 133 - 450 11/09/2017 [facility] HEMATOLOGY MPV 10.3 fL 7.4 - 10.4 11/09/2017 [facility] HEMATOLOGY MCHC 33.4 g/dL 32.0 - 36.0 11/09/2017 [facility] HEMATOLOGY RDW 14.8 % 11.5 - 14.5 11/09/2017 [facility] HEMATOLOGY RBC 2.95 M/CMM 4.20 - 5.40 11/09/2017 [facility] HEMATOLOGY Hct 24.9 % 36.0 - 48.0 11/09/2017 [facility] WBC 9.8 K/CMM 3.7 - 10.4 11/09/2017 [facility] HEMATOLOGY Hgb 8.3 g/dL 12.0 - 16.0 11/09/2017 [facility] HEMATOLOGY MCV 84.5 fL 80.0 - 98.0 11/09/2017 [facility] MCH 28.2 pg 27.0 - 31.0 11/09/2017 [facility] ELECTROLYTES AGAP 13.1 meq/L 10.0 - 20.0 11/08/2017 [facility] ELECTROLYTES BUN 41 mg/dL 7 - 22 11/08/2017 [facility] ELECTROLYTES Sodium Lvl 142 meq/L 135 - 145 11/08/2017 [facility] ELECTROLYTES Creatinine Lvl 2.18 mg/dL 0.50 - 1.40 11/08/2017 [facility] ELECTROLYTES Chloride Lvl 109 meq/L 95 - 109 11/08/2017 [facility] ELECTROLYTES Potassium Lvl 4.1 meq/L 3.5 - 5.1 11/08/2017 [facility] ELECTROLYTES Calcium Lvl 8.7 mg/dL 8.5 - 10.5 11/08/2017 [facility] ELECTROLYTES CO2 24 meq/L 24 - 32 11/08/2017 [facility] ELECTROLYTES eGFR 22 mL/min/1.73m2 11/08/2017 Result Comment: The eGFR is calculated using the CKD-EPI formula. In most young, healthy individuals the eGFR will be >90 mL/min/1.73m2. The eGFR declines with age. An eGFR of 60-89 may be normal in some populations, particularly the elderly, for whom the CKD-EPI formula has not been extensively validated. Use of the eGFR is not recommended in the following populations: Individuals with unstable creatinine concentrations, including patients and those with serious co-morbid conditions. Patients with extremes in muscle mass or diet. The data above are obtained from the National Kidney Disease Education Program (NKDEP) which additionally recommends that when the eGFR is used in patients with extremes of body mass index for purposes of drug dosing, the eGFR should be multiplied by the estimated BMI. [facility] ELECTROLYTES Glucose Lvl 184 mg/dL 70 - 99 11/08/2017 [facility] Platelet 72 K/CMM 133 - 450 11/08/2017 [facility] RDW 14.9 % 11.5 - 14.5 11/08/2017 [facility] MCHC 33.4 g/dL 32.0 - 36.0 11/08/2017 [facility] MPV 10.1 fL 7.4 - 10.4 11/08/2017 [facility] WBC 10.6 K/CMM 3.7 - 10.4 11/08/2017 [facility] MCV 84.7 fL 80.0 - 98.0 11/08/2017 [facility] MCH 28.3 pg 27.0 - 31.0 11/08/2017 [facility] Hct 24.1 % 36.0 - 48.0 11/08/2017 [facility] Hgb 8.1 g/dL 12.0 - 16.0 11/08/2017 [facility] RBC 2.85 M/CMM 4.20 - 5.40 11/08/2017 [facility] Culture: Urine <10,000 CFU/mL Gram Negative Rods 11/08/2017 [facility] CHEM PANEL eGFR 18 mL/min/1.73m2 11/07/2017 Result Comment: The eGFR is calculated using the CKD-EPI formula. In most young, healthy individuals the eGFR will be >90 mL/min/1.73m2. The eGFR declines with age. An eGFR of 60-89 may be normal in some populations, particularly the elderly, for whom the CKD-EPI formula has not been extensively validated. Use of the eGFR is not recommended in the following populations: Individuals with unstable creatinine concentrations, including patients and those with serious co-morbid conditions. Patients with extremes in muscle mass or diet. The data above are obtained from the National Kidney Disease Education Program (NKDEP) which additionally recommends that when the eGFR is used in patients with extremes of body mass index for purposes of drug dosing, the eGFR should be multiplied by the estimated BMI. [facility] CHEM PANEL CO2 23 meq/L 24 - 32 11/07/2017 [facility] CHEM PANEL Calcium Lvl 8.8 mg/dL 8.5 - 10.5 11/07/2017 [facility] CHEM PANEL Potassium Lvl 4.2 meq/L 3.5 - 5.1 11/07/2017 [facility] CHEM PANEL Sodium Lvl 145 meq/L 135 - 145 11/07/2017 [facility] CHEM PANEL Chloride Lvl 112 meq/L 95 - 109 11/07/2017 [facility] CHEM PANEL Creatinine Lvl 2.61 mg/dL 0.50 - 1.40 11/07/2017 [facility] CHEM PANEL BUN 41 mg/dL 7 - 22 11/07/2017 [facility] CHEM PANEL Glucose Lvl 197 mg/dL 70 - 99 11/07/2017 [facility] CHEM PANEL AGAP 14.2 meq/L 10.0 - 20.0 11/07/2017 [facility] MPV 10.1 fL 7.4 - 10.4 11/07/2017 [facility] RDW 14.9 % 11.5 - 14.5 11/07/2017 [facility] MCHC 33.2 g/dL 32.0 - 36.0 11/07/2017 [facility] Platelet 99 K/CMM 133 - 450 11/07/2017 [facility] MCH 28.1 pg 27.0 - 31.0 11/07/2017 [facility] MCV 84.8 fL 80.0 - 98.0 11/07/2017 [facility] Hct 25.4 % 36.0 - 48.0 11/07/2017 [facility] Hgb 8.4 g/dL 12.0 - 16.0 11/07/2017 [facility] RBC 3.00 M/CMM 4.20 - 5.40 11/07/2017 [facility] WBC 11.0 K/CMM 3.7 - 10.4 11/07/2017 [facility] CHEM PANEL Procalcitonin Lvl 0.86 ng/mL 0.00 - 0.10 11/06/2017 [facility] S. anginosus grp Not Detected (11/06/17 4:13 PM) Not Detected 11/06/2017 [facility] DI[facility]STIC S. epidermidis Not Detected (11/06/17 4:13 PM) Not Detected 11/06/2017 [facility] DIAGNOSTIC S. aureus Not Detected (11/06/17 4:13 PM) Not Detected 11/06/2017 [facility] S. lugdunensis Not Detected (11/06/17 4:13 PM) Not Detected 11/06/2017 [facility] DIAGNOSTIC E. faecium Not Detected (11/06/17 4:13 PM) Not Detected 11/06/2017 [facility] DIAGNOSTIC E. faecalis Not Detected (11/06/17 4:13 PM) Not Detected 11/06/2017 [facility] DIAGNOSTIC S. pyogenes Not Detected (11/06/17 4:13 PM) Not Detected 11/06/2017 [facility] DIAGNOSTIC S. pneumoniae Not Detected (11/06/17 4:13 PM) Not Detected 11/06/2017 [facility] DIAGNOSTIC S. agalactiae Not Detected (11/06/17 4:13 PM) Not Detected 11/06/2017 [facility] DIAGNOSTIC Staphylococcus spp. Not Detected (11/06/17 4:13 PM) Not Detected 11/06/2017 [facility] MOLECULAR DIAGNOSTIC Listeria spp. Not Detected (11/06/17 4:13 PM) Not Detected 11/06/2017 [facility] Jovany Vancomycin Resistance Not Detected (11/06/17 4:13 PM) Not Detected 11/06/2017 [facility] mecA Methicillin Resistance Not Detected (11/06/17 4:13 PM) Not Detected 11/06/2017 [facility] MOLECULAR DIAGNOSTIC vanB Vancomycin Resistance Not Detected (11/06/17 4:13 PM) Not Detected 11/06/2017 [facility] DIAGNOSTIC Streptococcus spp. Not Detected (11/06/17 4:13 PM) Not Detected 11/06/2017 [facility] URINE AND STOOL UA Turbidity Slight Cloudy (11/06/17 1:00 PM) Clear 11/06/2017 [facility] URINE AND STOOL UA Spec Grav >=1.030 *ABN* (11/06/17 1:00 PM) <=1.030 11/06/2017 [facility] URINE AND STOOL UA Protein >=300 mg/dL Negative mg/dL 11/06/2017 [facility] URINE AND STOOL UA pH 5.5 5.0 - 8.0 11/06/2017 [facility] URINE AND STOOL UA Color Yellow *NA* (11/06/17 1:00 PM) Yellow 11/06/2017 [facility] URINE AND STOOL UA Nitrite Negative (11/06/17 1:00 PM) Negative 11/06/2017 [facility] URINE AND STOOL UA Leuk Est Negative (11/06/17 1:00 PM) Negative 11/06/2017 [facility] URINE AND STOOL UA Urobilinogen 0.2 EU/dL 0.1 - 1.0 11/06/2017 [facility] URINE AND STOOL UA Blood Moderate *ABN* (11/06/17 1:00 PM) Negative 11/06/2017 [facility] URINE AND STOOL UA Glucose Negative (11/06/17 1:00 PM) Negative 11/06/2017 [facility] URINE AND STOOL UA Bili Negative *NA* (11/06/17 1:00 PM) Negative 11/06/2017 [facility] URINE AND STOOL UA Ketones Negative *NA* (11/06/17 1:00 PM) Negative 11/06/2017 [facility] URINE AND STOOL UA RBC 3-5 /HPF 0 - 2 11/06/2017 [facility] URINE AND STOOL UA Bacteria Moderate /HPF None Seen /HPF 11/06/2017 [facility] URINE AND STOOL UA Mucus Many /LPF None Seen /LPF 11/06/2017 [facility] URINE AND STOOL Micro? Performed (11/06/17 1:00 PM) 11/06/2017 [facility] URINE AND STOOL UA Sq Epi Moderate /LPF Few /LPF 11/06/2017 [facility] URINE AND STOOL UA WBC 6-10 /HPF 0 - 5 11/06/2017 [facility] Brain wo contrast CT Brain wo contrast CT Clinical Indication: - patient with increased confusion today; Comparison: None TECHNIQUE: CT images were obtained from the foramen magnum to the vertex without the use of intravenous contrast on a multidetector CT. Coronal and sagittal reconstructions were obtained. CT radiation dose DLP: 1669.13 mGy-cm FINDINGS: BRAIN PARENCHYMA: There are normal luis-white interfaces, sulci and gyri. There are no focal mass lesions on this noncontrast head CT. There is no mass effect, midline shift or edema. There are no intra-axial or extra-axial fluid collections, intraventricular or intraparenchymal hemorrhage. The pineal, sellar, brainstem, cerebellum and skull base regions appear unremarkable. VENTRICLES: The lateral ventricles, third and fourth ventricles appear unremarkable. The basilar cisterns are normal. ORBITS, MASTOIDS AND PARANASAL SINUSES: The visualized orbits and paranasal sinuses are unremarkable. The mastoid air cells are clear. SKULL: There are no osseous abnormalities. If there is further concern for intracranial pathology or acute stroke, MRI of the brain may be performed for complete assessment. IMPRESSION: Unremarkable noncontrast head CT with no mass, hemorrhage or subacute stroke. SL: [id number] 11/06/2017 - - Read by: Conner Jean-Baptiste MD Dictated Date/time: 11/06/17 18:04 Electronically Signed by: Conner Jean-Baptiste MD 11/06/17 18:07 FINAL REPORT [facility] CHEM PANEL Phosphorus 3.4 mg/dL 2.5 - 4.5 11/06/2017 [facility] CHEM PANEL Magnesium Lvl 2.2 mg/dL 1.8 - 2.4 11/06/2017 [facility] ELECTROLYTES AGAP 13.1 meq/L 10.0 - 20.0 11/06/2017 [facility] ELECTROLYTES eGFR 16 mL/min/1.73m2 11/06/2017 Result Comment: The eGFR is calculated using the CKD-EPI formula. In most young, healthy individuals the eGFR will be >90 mL/min/1.73m2. The eGFR declines with age. An eGFR of 60-89 may be normal in some populations, particularly the elderly, for whom the CKD-EPI formula has not been extensively validated. Use of the eGFR is not recommended in the following populations: Individuals with unstable creatinine concentrations, including patients and those with serious co-morbid conditions. Patients with extremes in muscle mass or diet. The data above are obtained from the National Kidney Disease Education Program (NKDEP) which additionally recommends that when the eGFR is used in patients with extremes of body mass index for purposes of drug dosing, the eGFR should be multiplied by the estimated BMI. [facility] ELECTROLYTES Calcium Lvl 8.0 mg/dL 8.5 - 10.5 11/06/2017 [facility] ELECTROLYTES CO2 22 meq/L 24 - 32 11/06/2017 [facility] ELECTROLYTES Chloride Lvl 109 meq/L 95 - 109 11/06/2017 [facility] ELECTROLYTES Potassium Lvl 4.1 meq/L 3.5 - 5.1 11/06/2017 [facility] ELECTROLYTES Sodium Lvl 140 meq/L 135 - 145 11/06/2017 [facility] ELECTROLYTES Creatinine Lvl 2.82 mg/dL 0.50 - 1.40 11/06/2017 [facility] ELECTROLYTES BUN 40 mg/dL 7 - 11/06/2017 [facility] ELECTROLYTES Glucose Lvl 182 mg/dL 70 - 99 11/06/2017 [facility] Basophils # 0.1 K/CMM 0.0 - 0.2 11/06/2017 [facility] HEMATOLOGY Segs 75.8 % 45.0 - 75.0 11/06/2017 [facility] HEMATOLOGY Eosinophils 1.4 % 0.0 - 4.0 11/06/2017 [facility] HEMATOLOGY Monocytes 7.1 % 2.0 - 12.0 11/06/2017 [facility] HEMATOLOGY Lymphocytes 14.5 % 20.0 - 40.0 11/06/2017 [facility] HEMATOLOGY Monocytes # 0.9 K/CMM 0.0 - 0.8 11/06/2017 [facility] HEMATOLOGY Lymphocytes # 1.8 K/CMM 1.0 - 5.5 11/06/2017 [facility] HEMATOLOGY Eosinophils # 0.2 K/CMM 0.0 - 0.5 11/06/2017 [facility] HEMATOLOGY Segs-Bands # 9.5 K/CMM 1.5 - 8.1 11/06/2017 [facility] HEMATOLOGY Basophils 1.2 % 0.0 - 1.0 11/06/2017 [facility] HEMATOLOGY Segs 82.8 % 45.0 - 75.0 11/05/2017 [facility] HEMATOLOGY Lymphocytes 10.4 % 20.0 - 40.0 11/05/2017 [facility] HEMATOLOGY Monocytes 6.3 % 2.0 - 12.0 11/05/2017 [facility] HEMATOLOGY Basophils # 0.1 K/CMM 0.0 - 0.2 11/05/2017 [facility] HEMATOLOGY Eosinophils 0.1 % 0.0 - 4.0 11/05/2017 [facility] HEMATOLOGY Lymphocytes # 1.3 K/CMM 1.0 - 5.5 11/05/2017 [facility] HEMATOLOGY Monocytes # 0.8 K/CMM 0.0 - 0.8 11/05/2017 [facility] HEMATOLOGY Basophils 0.4 % 0.0 - 1.0 11/05/2017 [facility] HEMATOLOGY Segs-Bands # 10.1 K/CMM 1.5 - 8.1 11/05/2017 [facility] HEMATOLOGY Segs-Bands # 12.3 K/CMM 1.5 - 8.1 11/05/2017 [facility] HEMATOLOGY Basophils 0.5 % 0.0 - 1.0 11/05/2017 [facility] HEMATOLOGY Lymphocytes # 0.8 K/CMM 1.0 - 5.5 11/05/2017 [facility] HEMATOLOGY Monocytes # 0.4 K/CMM 0.0 - 0.8 11/05/2017 [facility] Basophils # 0.1 K/CMM 0.0 - 0.2 11/05/2017 [facility] HEMATOLOGY Segs 90.3 % 45.0 - 75.0 11/05/2017 [facility] Lymphocytes 6.0 % 20.0 - 40.0 11/05/2017 [facility] Monocytes 3.2 % 2.0 - 12.0 11/05/2017 [facility] BLOOD BANK RESULTS RBC product Product available 1 (11/04/17 10:13 AM) 11/04/2017 Result Comment: 11/04/2017 10:35 NOEL called to rahel 11/04/2017 10:35 [facility] BLOOD [facility] RESULTS Platelet product Product available (6/20/18 10:05 AM) 11/04/2017 [facility] BLOOD BANK RESULTS ABO/Rh B POS 10/29/2017 [facility] BLOOD [facility] RESULTS Antibody Scrn Negative (10/29/17 9:27 AM) 10/29/2017 [facility] Eosinophils # 0.5 K/CMM 0.0 - 0.5 10/29/2017 [facility] Large Plt Slight 10/29/2017 [facility] Eosinophils 4.8 % 0.0 - 4.0 10/29/2017 [facility] RBC Morph Normal (10/29/17 9:27 AM) 10/29/2017 [facility] PTT 29.9 s 22.9 - 35.8 10/29/2017 [facility] PT 13.1 s 12.0 - 14.7 10/29/2017 [facility] INR 0.99 0.85 - 1.17 10/29/2017 [facility] BLOOD [facility] RESULTS Antibody Scrn Negative (08/18/17 10:21 AM) 08/18/2017 [facility] BLOOD [facility] RESULTS ABO/Rh B POS 08/18/2017 [facility] CHEM PANEL eGFR 19 mL/min/1.73m2 08/18/2017 Result Comment: The eGFR is calculated using the CKD-EPI formula. In most young, healthy individuals the eGFR will be >90 mL/min/1.73m2. The eGFR declines with age. An eGFR of 60-89 may be normal in some populations, particularly the elderly, for whom the CKD-EPI formula has not been extensively validated. Use of the eGFR is not recommended in the following populations: Individuals with unstable creatinine concentrations, including patients and those with serious co-morbid conditions. Patients with extremes in muscle mass or diet. The data above are obtained from the National Kidney Disease Education Program (NKDEP) which additionally recommends that when the eGFR is used in patients with extremes of body mass index for purposes of drug dosing, the eGFR should be multiplied by the estimated BMI. [facility] CHEM PANEL Calcium Lvl 9.3 mg/dL 8.5 - 10.5 08/18/2017 [facility] CHEM PANEL Chloride Lvl 100 meq/L 95 - 109 08/18/2017 [facility] CHEM PANEL Potassium Lvl 6.4 meq/L 3.5 - 5.1 08/18/2017 [facility] CHEM PANEL AGAP 15.4 meq/L 10.0 - 20.0 08/18/2017 [facility] CHEM PANEL CO2 26 meq/L 24 - 32 08/18/2017 [facility] CHEM PANEL BUN 34 mg/dL 7 - 22 08/18/2017 [facility] CHEM PANEL Sodium Lvl 135 meq/L 135 - 145 08/18/2017 [facility] CHEM PANEL Creatinine Lvl 2.51 mg/dL 0.50 - 1.40 08/18/2017 [facility] CHEM PANEL Glucose Lvl 636 mg/dL 70 - 99 08/18/2017 Result Comment: Critical Result(s) called to Yoli Nuno at 08/18/2017 10:56 by DMF. Read back OK. [facility] HEMATOLOGY Hgb 10.7 g/dL 12.0 - 16.0 08/18/2017 [facility] RBC 3.85 M/CMM 4.20 - 5.40 08/18/2017 [facility] WBC 10.1 K/CMM 3.7 - 10.4 08/18/2017 [facility] Hct 32.9 % 36.0 - 48.0 08/18/2017 [facility] Platelet 55 K/CMM 133 - 450 08/18/2017 [facility] MPV 10.2 fL 7.4 - 10.4 08/18/2017 [facility] MCHC 32.7 g/dL 32.0 - 36.0 08/18/2017 [facility] RDW 14.2 % 11.5 - 14.5 08/18/2017 [facility] MCV 85.3 fL 80.0 - 98.0 08/18/2017 [facility] MCH 27.9 pg 27.0 - 31.0 08/18/2017 [facility] INR 0.53 0.85 - 1.17 08/18/2017 [facility] PT 8.0 s 12.0 - 14.7 08/18/2017 [facility] PTT 32.3 s 22.9 - 35.8 08/18/2017 [facility] Basophils # 0.1 K/CMM 0.0 - 0.2 08/18/2017 [facility] Eosinophils # 0.5 K/CMM 0.0 - 0.5 08/18/2017 [facility] Monocytes # 0.6 K/CMM 0.0 - 0.8 08/18/2017 [facility] Monocytes 6.2 % 2.0 - 12.0 08/18/2017 [facility] Segs 67.2 % 45.0 - 75.0 08/18/2017 [facility] HEMATOLOGY Segs-Bands # 6.8 K/CMM 1.5 - 8.1 08/18/2017 [facility] HEMATOLOGY Basophils 1.0 % 0.0 - 1.0 08/18/2017 [facility] HEMATOLOGY Eosinophils 4.7 % 0.0 - 4.0 08/18/2017 [facility] HEMATOLOGY Lymphocytes # 2.1 K/CMM 1.0 - 5.5 08/18/2017 [facility] HEMATOLOGY Lymphocytes 20.9 % 20.0 - 40.0 08/18/2017 [facility] SPECIAL CHEMISTRY Hgb A1C 14.4 % <=5.6 % 08/18/2017 [facility] Chest 2 views DX Chest 2 views DX Patient Name: BRIAN VÁZQUEZ : 1945; Age: 72 years Female MR: [id number] Study: Chest 2 views DX Order Time: 08/18/2017 9:13 AM CDT CLINICAL INDICATION: Coughing - pre-op COMPARISON: Chest radiograph on 02/25/2016 FINDINGS: Lines: None. Lungs: The lungs are grossly clear. Mediastinum: The cardiac silhouette is within normal limits of size. Midline trachea. Bones and soft tissues: No acute abnormalities. Stable thoracic scoliosis. IMPRESSION: No acute cardiopulmonary abnormalities. SL: [id number] 08/18/2017 - - Read by: Elisabeth Arellano MD Dictated Date/time: 08/18/17 10:03 Electronically Signed by: Elisabeth Arellano MD 08/18/17 10:04 FINAL REPORT [facility] Knee 3 Views Bilateral DX Knee 3 Views Bilateral DX EXAM: XR BILATERAL KNEE 3 VIEWS DATE: 05/05/2017 3:15 PM INVESTMENT DIRECTOR INDICATION: - KNEE PAIN COMPARISON: None TECHNIQUE: Standing AP, sunrise and lateral radiographs of both knees FINDINGS: No fracture, dislocation or other acute bony abnormality is identified. Joint spaces are preserved in all three compartments. Left quadriceps and enthesophytes visualized. There is mild pointing of the tibial spines. There is no knee joint effusion. No soft tissue abnormality is identified. IMPRESSION: 1. No acute osseous or joint of the right knee. 2. Minimal osteoarthritis of both knee joints. 05/05/2017 - - Read by: Lam Burton MD Dictated Date/time: 05/05/17 16:02 Electronically Signed by: Lam Burton MD 05/05/17 16:03 FINAL REPORT [facility] Ankle 2 views bilateral DX Ankle 2 views bilateral DX EXAM: XR BILATERAL ANKLE 2 VIEWS EXAM: XR BILATERAL FOOT 2 VIEWS DATE: 05/05/2017 3:14 PM INVESTMENT DIRECTOR INDICATION: - ANKLE PAIN COMPARISON: None TECHNIQUE: AP and lateral radiographs of the bilateral ankles and feet FINDINGS: Left ankle and foot: No fracture or dislocation. No osseous lesions. Large plantar and Achilles calcaneal enthesophyte visualized. Mild midfoot degenerative changes. No soft tissue abnormal the. Right foot and ankle: No fracture or osseous lesions. Midfoot degenerative changes visualized. Large plantar and small Achilles enthesophytes visualized. IMPRESSION: 1. Large calcaneal enthesopathy bilaterally. 2. Mid feet degenerative changes. 3. No acute abnormality. 05/05/2017 - - Read by: Lam Burton MD Dictated Date/time: 05/05/17 16:00 Electronically Signed by: Lam Burton MD 05/05/17 16:02 [facility] 3 [facility] bilateral DX Foot 3 views bilateral DX EXAM: XR BILATERAL ANKLE 2 VIEWS EXAM: XR BILATERAL FOOT 2 VIEWS DATE: 05/05/2017 3:14 PM INVESTMENT DIRECTOR INDICATION: - ANKLE PAIN COMPARISON: None TECHNIQUE: AP and lateral radiographs of the bilateral ankles and feet FINDINGS: Left ankle and foot: No fracture or dislocation. No osseous lesions. Large plantar and Achilles calcaneal enthesophyte visualized. Mild midfoot degenerative changes. No soft tissue abnormal the. Right foot and ankle: No fracture or osseous lesions. Midfoot degenerative changes visualized. Large plantar and small Achilles enthesophytes visualized. IMPRESSION: 1. Large calcaneal enthesopathy bilaterally. 2. Mid feet degenerative changes. 3. No acute abnormality. 05/05/2017 - - Read by: Lam Burton MD Dictated Date/time: 05/05/17 16:00 Electronically Signed by: Lam Burton MD 05/05/17 16:02 FINAL REPORT [facility] Abdomen complete US Abdomen complete US EXAM: US ABDOMEN COMPLETE DATE: 03/18/2017 7:56 AM CDT INDICATION: - R10.9 Unspecified abdominal pain ADDITIONAL INFORMATION: None. COMPARISON: None. TECHNIQUE: Multiplanar grayscale and color Doppler ultrasound of the abdomen. FINDINGS: Liver: Craniocaudal length: 17.1 cm. Mildly enlarged. Echogenicity: Increased. Surface nodularity: Normal. Mass (size and location): None. Portal vein: 1.1 cm, within normal limits in caliber, with hepatopedal flow. Bile ducts: Common bile duct diameter: 0.9 cm. Dilated. Intrahepatic ducts: Normal. Gallbladder: Not visualized, most likely removed. Pancreas: Head and uncinate process: Partially seen. Body and tail: Not seen. Spleen: Craniocaudal length: 8.8 cm. Mass or focal lesion (size and location): None. Right kidney: Hydronephrosis: None. Size: 9.8 cm. Echogenicity: Normal. Mass/Stone/Cyst (size and location): An interpolar cyst measures 1.3 cm without internal vascularity. Left kidney: Hydronephrosis: None. Size: 10.9 cm. Echogenicity: Normal. Mass/Stone/Cyst (size and location): A superior pole exophytic cyst measures 1.6 cm without internal vascularity. An inferior pole cyst measures 1.8 cm without internal vascularity. Abdominal aorta and IVC: Visible portions are within normal limits in caliber. Ascites: None. Others: Interrogated portions of the bilateral lower abdomen demonstrate no fluid collections. IMPRESSION: 1. Hepatomegaly with increased hepatic echogenicity, most commonly hepatic steatosis. No sonographic evidence of hepatic lesions. 2. Gallbladder not visualized, most likely removed. Post cholecystectomy changes of the common bile duct with reservoir phenomenon suspected. 3. Bilateral renal cysts without internal vascularity. 4. No renal stones or hydronephrosis. 5. In the interrogated portions of the bilateral lower abdomen, no definite fluid collections are visualized. 03/18/2017 - - Read by: Tato Wagoner MD Dictated Date/time: 03/18/17 11:04 Electronically Signed by: Tato Wagoner MD 03/18/17 11:09 FINAL REPORT [facility] BLOOD BANK RESULTS ABO/Rh B POS 03/09/2017 [facility] BLOOD BANK RESULTS Antibody Scrn Negative (03/09/17 6:58 AM) 03/09/2017 [facility] CHEM PANEL Magnesium Lvl 1.9 mg/dL 1.8 - 2.4 03/09/2017 [facility] ELECTROLYTES AGAP 16.5 meq/L 10.0 - 20.0 03/09/2017 [facility] ELECTROLYTES eGFR 23 mL/min/1.73m2 03/09/2017 Result Comment: The eGFR is calculated using the CKD-EPI formula. In most young, healthy individuals the eGFR will be >90 mL/min/1.73m2. The eGFR declines with age. An eGFR of 60-89 may be normal in some populations, particularly the elderly, for whom the CKD-EPI formula has not been extensively validated. Use of the eGFR is not recommended in the following populations: Individuals with unstable creatinine concentrations, including patients and those with serious co-morbid conditions. Patients with extremes in muscle mass or diet. The data above are obtained from the National Kidney Disease Education Program (NKDEP) which additionally recommends that when the eGFR is used in patients with extremes of body mass index for purposes of drug dosing, the eGFR should be multiplied by the estimated BMI. [facility] ELECTROLYTES Chloride Lvl 101 meq/L 95 - 109 03/09/2017 [facility] ELECTROLYTES CO2 25 meq/L 24 - 32 03/09/2017 [facility] ELECTROLYTES Sodium Lvl 139 meq/L 135 - 145 03/09/2017 [facility] ELECTROLYTES Potassium Lvl 3.5 meq/L 3.5 - 5.1 03/09/2017 [facility] ELECTROLYTES Calcium Lvl 9.1 mg/dL 8.5 - 10.5 03/09/2017 [facility] ELECTROLYTES BUN 30 mg/dL 7 - 22 03/09/2017 [facility] ELECTROLYTES Creatinine Lvl 2.13 mg/dL 0.50 - 1.40 03/09/2017 [facility] ELECTROLYTES Glucose Lvl 264 mg/dL 70 - 99 03/09/2017 [facility] HEMATOLOGY Basophils # 0.1 K/CMM 0.0 - 0.2 03/09/2017 [facility] HEMATOLOGY Eosinophils # 0.4 K/CMM 0.0 - 0.5 03/09/2017 [facility] HEMATOLOGY Monocytes # 0.7 K/CMM 0.0 - 0.8 03/09/2017 [facility] HEMATOLOGY Segs 60.2 % 45.0 - 75.0 03/09/2017 [facility] HEMATOLOGY Lymphocytes 29.5 % 20.0 - 40.0 03/09/2017 [facility] HEMATOLOGY Eosinophils 3.7 % 0.0 - 4.0 03/09/2017 [facility] HEMATOLOGY Monocytes 5.8 % 2.0 - 12.0 03/09/2017 [facility] HEMATOLOGY Lymphocytes # 3.4 K/CMM 1.0 - 5.5 03/09/2017 [facility] HEMATOLOGY Basophils 0.8 % 0.0 - 1.0 03/09/2017 [facility] HEMATOLOGY Segs-Bands # 6.8 K/CMM 1.5 - 8.1 03/09/2017 [facility] HEMATOLOGY PT 13.1 s 12.0 - 14.7 03/09/2017 [facility] HEMATOLOGY PTT 25.9 s 22.9 - 35.8 03/09/2017 [facility] HEMATOLOGY INR 0.99 0.85 - 1.17 03/09/2017 [facility] HEMATOLOGY MPV 9.8 fL 7.4 - 10.4 03/09/2017 [facility] HEMATOLOGY Platelet 47 K/CMM 133 - 450 03/09/2017 [facility] HEMATOLOGY MCHC 33.6 g/dL 32.0 - 36.0 03/09/2017 [facility] HEMATOLOGY RDW 14.1 % 11.5 - 14.5 03/09/2017 [facility] HEMATOLOGY Hgb 11.7 g/dL 12.0 - 16.0 03/09/2017 [facility] HEMATOLOGY Hct 34.9 % 36.0 - 48.0 03/09/2017 [facility] HEMATOLOGY MCV 86.5 fL 80.0 - 98.0 03/09/2017 [facility] HEMATOLOGY MCH 29.1 pg 27.0 - 31.0 03/09/2017 [facility] HEMATOLOGY WBC 11.4 K/CMM 3.7 - 10.4 03/09/2017 [facility] HEMATOLOGY RBC 4.03 M/CMM 4.20 - 5.40 03/09/2017 [facility] BLOOD BANK RESULTS ABO/Rh B POS 10/20/2016 [facility] BLOOD BANK RESULTS Antibody Scrn Negative (10/20/16 6:38 AM) 10/20/2016 [facility] CHEM PANEL Magnesium Lvl 2.2 mg/dL 1.8 - 2.4 10/20/2016 [facility] ELECTROLYTES AGAP 13.9 meq/L 10.0 - 20.0 10/20/2016 [facility] ELECTROLYTES eGFR 27 mL/min/1.73m2 10/20/2016 Result Comment: The eGFR is calculated using the CKD-EPI formula. In most young, healthy individuals the eGFR will be >90 mL/min/1.73m2. The eGFR declines with age. An eGFR of 60-89 may be normal in some populations, particularly the elderly, for whom the CKD-EPI formula has not been extensively validated. Use of the eGFR is not recommended in the following populations: Individuals with unstable creatinine concentrations, including patients and those with serious co-morbid conditions. Patients with extremes in muscle mass or diet. The data above are obtained from the National Kidney Disease Education Program (NKDEP) which additionally recommends that when the eGFR is used in patients with extremes of body mass index for purposes of drug dosing, the eGFR should be multiplied by the estimated BMI. [facility] ELECTROLYTES Chloride Lvl 101 meq/L 95 - 109 10/20/2016 [facility] ELECTROLYTES Creatinine Lvl 1.84 mg/dL 0.50 - 1.40 10/20/2016 [facility] ELECTROLYTES CO2 28 meq/L 24 - 32 10/20/2016 [facility] ELECTROLYTES Sodium Lvl 139 meq/L 135 - 145 10/20/2016 [facility] ELECTROLYTES Potassium Lvl 3.9 meq/L 3.5 - 5.1 10/20/2016 [facility] ELECTROLYTES Calcium Lvl 9.3 mg/dL 8.5 - 10.5 10/20/2016 [facility] ELECTROLYTES Glucose Lvl 296 mg/dL 70 - 99 10/20/2016 [facility] ELECTROLYTES BUN 37 mg/dL 7 - 22 10/20/2016 [facility] HEMATOLOGY INR 1.02 0.85 - 1.17 10/20/2016 [facility] HEMATOLOGY PTT 32.7 s 22.9 - 35.8 10/20/2016 [facility] HEMATOLOGY PT 13.6 s 12.0 - 14.7 10/20/2016 [facility] HEMATOLOGY MCHC 34.7 g/dL 32.0 - 36.0 10/20/2016 [facility] HEMATOLOGY MCH 29.7 pg 27.0 - 31.0 10/20/2016 [facility] HEMATOLOGY Hgb 11.4 g/dL 12.0 - 16.0 10/20/2016 [facility] HEMATOLOGY MCV 85.8 fL 80.0 - 98.0 10/20/2016 [facility] HEMATOLOGY Hct 32.8 % 36.0 - 48.0 10/20/2016 [facility] HEMATOLOGY RBC 3.83 M/CMM 4.20 - 5.40 10/20/2016 [facility] HEMATOLOGY MPV 9.5 fL 7.4 - 10.4 10/20/2016 [facility] HEMATOLOGY Platelet 54 K/CMM 133 - 450 10/20/2016 [facility] HEMATOLOGY RDW 14.0 % 11.5 - 14.5 10/20/2016 [facility] HEMATOLOGY WBC 9.1 K/CMM 3.7 - 10.4 10/20/2016 [facility] HEMATOLOGY Monocytes 7.8 % 2.0 - 12.0 10/20/2016 [facility] HEMATOLOGY Lymphocytes 25.7 % 20.0 - 40.0 10/20/2016 [facility] HEMATOLOGY Segs 59.6 % 45.0 - 75.0 10/20/2016 [facility] HEMATOLOGY Basophils # 0.1 K/CMM 0.0 - 0.2 10/20/2016 [facility] HEMATOLOGY Eosinophils # 0.5 K/CMM 0.0 - 0.5 10/20/2016 [facility] HEMATOLOGY Eosinophils 5.9 % 0.0 - 4.0 10/20/2016 [facility] HEMATOLOGY Basophils 1.0 % 0.0 - 1.0 10/20/2016 [facility] HEMATOLOGY Lymphocytes # 2.3 K/CMM 1.0 - 5.5 10/20/2016 [facility] HEMATOLOGY Monocytes # 0.7 K/CMM 0.0 - 0.8 10/20/2016 [facility] HEMATOLOGY Segs-Bands # 5.5 K/CMM 1.5 - 8.1 10/20/2016 [facility] Hip bilat w pelvis and both lat hips DX Hip bilat w pelvis and both lat hips DX EXAM: XR BILATERAL HIP 3 VIEWS DATE: 03/06/2016 4:15 PM CDT INDICATION: M25.552 Pain in left hip COMPARISON: None TECHNIQUE: 2 views of each hip, including the pelvis Laterality: Bilateral FINDINGS: No acute fracture or malalignment is identified. Mild degenerative changes are present involving bilateral hips.. Is osteopenia is present. Lower lumbar spine degenerative changes are present. No soft tissue abnormality is identified. IMPRESSION: No acute abnormality. Diffuse degenerative changes of bilateral hips with diffuse osteopenia 03/06/2016 - - Read by: Argelia Moran MD Dictated Date/time: 03/07/16 08:57 Electronically Signed by: Argelia Moran MD 03/07/16 08:58 FINAL REPORT [facility] Chest 2 views DX Chest 2 views DX EXAM: XR CHEST 2 VIEWS DATE: 02/25/2016 8:59 AM CDT INDICATION: J20.9 Acute bronchitis, unspecified COMPARISON: None. TECHNIQUE: PA and lateral chest radiographs FINDINGS: There is mild positional scoliosis with convexity to the right side of the thoracic spine. The lungs are mildly hyperinflated. No acute focus of consolidation or atelectasis. No pleural effusion or pneumothorax. Pulmonary vascularity is normal. The heart size is normal. No acute bony abnormality is identified. IMPRESSION: No acute cardiopulmonary abnormality. 02/25/2016 - - Read by: Mora Stubbs MD Dictated Date/time: 02/25/16 09:24 Electronically Signed by: Mora Stubbs MD 02/25/16 09:24 FINAL REPORT [facility] Spine cervical series DX Spine cervical series DX EXAM: XR CERVICAL SPINE 5 VIEWS DATE: 02/04/2016 2:37 PM CDT INDICATION: M54.2 Cervicalgia COMPARISON: None TECHNIQUE: AP, lateral, open-mouth odontoid, RPO and LPO radiographs of the cervical spine show from the skull base through C6. FINDINGS: Vertebral body heights and alignment are preserved. There is no disk height loss. Early neuroforaminal narrowing is seen at the C2-C3 and C3-C4 level on the right. No prevertebral or paraspinous soft tissue abnormality is identified. IMPRESSION: 1. Early neuroforaminal narrowing is seen at C2-C3 and C3-C4 levels. 2. No fracture and alignment is within normal limits. 02/04/2016 - - This report was dictated by a Boil Off Worker/Fellow. I have personally reviewed the images as well as the Resident's interpretation and agree with the findings. Read by: Mike Ricardo MD Resident: Mike Ricardo MD Dictated Date/time: 02/04/16 15:58 Electronically Signed by: Argelia Moran MD 02/04/16 18:13 FINAL REPORT [facility] Spine lumbar wo contrast CT Spine lumbar wo contrast CT Examination: CT lumbar spine without contrast DATE: 09/05/2015 INDICATION: Low back pain. Discussion: Noncontrast CT images lumbar spine are performed with multiplanar reformatting. There are no prior studies for comparison. The axial skeleton is diffusely osteoporotic. I do not see any definite compression deformity, however. There is levoscoliotic curvature of the lumbar spine centered at L3 with an angulation of 20 degrees. Compensatory curvature is present between L3 and S1 with convexity to the right. At T11-T12, there is vacuum phenomenon and marginal osteophytosis anteriorly. There is no posterior disc bulge or protrusion. The canal is widely patent. At T12-L1, there is mild diffuse bulging of the disc without canal or foraminal narrowing. Mild posterior element osteoporosis is noted. At L1-L2, there is minimal bulging the disc. There is bilateral facet joint hypertrophy and sclerosis and there is ossification of the ligamentum flavum. There is no significant canal narrowing. At L2-L3, there is minimal diffuse bulging of the disc. There is bilateral facet joint hypertrophy and sclerosis. There is mild bilateral foraminal stenosis. At L3-L4, there is mild diffuse bulging of the disc with asymmetry to the right. There is bilateral facet hypertrophy and sclerosis. Moderate bilateral foraminal narrowing is present. At L4-L5, laminectomy has been performed. There is advanced facet arthrosis on the left side with sclerosis and subchondral distal right cyst formation as well as overhanging osteophytes. On the right, there is spondylolysis and facet joint arthrosis. There is both dextroscoliosis and rotatory scoliosis at this level. Advanced degeneration of the disc space is present with vacuum phenomenon and sclerosis along the right side associated with asymmetric bulging of the disc. A left lateral disc protrusion is also probably present. There is severe stenosis of both neural foramina and there is probably subarticular stenosis on the left side. L5-S1, there is dissection scoliotic curvature. Large left lateral disc osteophyte complex is present and there is narrowing of the left neural foramen. The canal is widely patent. There is moderate bilateral facet joint degeneration with sclerosis. Changes of [place] disease are present between L1 and L3. There is hypertrophy of interspinous ligaments with pseudoarthrosis between the spinous processes. Impression: L4-L5, there is rotary subluxation, dextroscoliotic curvature, and unilateral spondylolysis associated with advanced disc degenerative change. There is bilateral foraminal stenosis, and there may be a left-sided disc protrusion. At L5-S1, there is marked left-sided disc degeneration associated with compensatory dextroscoliotic curvature. Mild disc and facet joint degenerative changes are present in the upper lumbar levels with associated levoscoliotic curvature. 09/05/2015 - - Read by: Khoa Miles MD Dictated Date/time: 09/06/15 17:07 Electronically Signed by: Khoa Miles MD 09/06/15 17:32 FINAL REPORT [facility] Abdomen/Pelvis wo IV contrast CT Abdomen/Pelvis wo IV contrast CT EXAM: CT ABDOMEN AND PELVIS WITHOUT CONTRAST DATE: 09/05/2015 10:41 AM CDT INDICATION: R31.2 Other microscopic hematuria ADDITIONAL INFORMATION: Abdominal pain COMPARISON: None. TECHNIQUE: Volumetric CT acquisition of the abdomen and pelvis without intravenous contrast. Axial, coronal and sagittal reconstructions. IV contrast: None Oral contrast: None. DLP: 485 FINDINGS: Lung bases show presence of minimal scarring bilaterally. Scans through the abdomen show liver, spleen, pancreas, right adrenal, and kidneys to be unremarkable. A well-circumscribed fat-containing nodule is present within the left adrenal most likely representing benign adenoma. This nodule measures 3 x 2.1 cm in size. Scans through the pelvis show urinary bladder is well distended and appears unremarkable. Surgical absence of the uterus and adnexa are evident. There is no free fluid. There is no significant intra-abdominal or pelvic lymphadenopathy. Vascular calcifications identified in the abdominal aorta, and iliac arteries. Scattered diverticula with dense material is noted in the region of the distal descending colon and sigmoid colon. No evidence of acute diverticulitis. Residual stool throughout the remainder of the colon limits exam. Visualized small bowel loops are unremarkable with no evidence of wall thickening, edema or obstruction. Stomach is nondistended and therefore suboptimally evaluated. Osseous structures show degenerative changes of the lumbosacral spine. Sclerotic foci in the right femoral head, and acetabulum, left ilium, are noted. There is mild retrolisthesis of L5 on S1. Diffuse osteopenia is noted. IMPRESSION: 1. No radiopaque calculi in the region of the kidneys, ureters or bladder, no hydronephrosis or hydroureteral. 2. Benign-appearing left adrenal nodule. 3. Scattered diverticuli descending and sigmoid colon, no evidence of acute diverticulitis. 09/05/2015 - - Read by: Kathy Fajardo MD Dictated Date/time: 09/05/15 15:06 Electronically Signed by: Kathy Fajardo 09/05/15 15:22 FINAL REPORT [facility] Bone Marrow Biopsy or Trocar (VR) Bone Marrow Biopsy or Trocar (VR) BONE MARROW BIOPSY: HISTORY: Chronic thrombocytopenia, not responsive to treatment. PROCEDURE: The procedure was done using sterile technique, local anesthetic and fluoroscopic guidance. The fluoroscopic time was 0.5 minutes. An 11-gauge needle was placed from a posterior approach into the marrow space of the left posterior ilium. An aspirate was obtained and given to the technologist development for slide preparation. A bone core was then obtained which was sent for histology. The patient tolerated the procedure well without immediate complications and was discharged from [facility] in stable condition. SL:13 04/25/2014 - - Read by: Carlos Dangelo MD Dictated Date/time: 04/26/14 08:52 Electronically Signed by: Carlos Dangelo MD 04/26/14 08:52 FINAL REPORT [facility] Atypical Lymphs 0.0 % <=0.0 % 04/25/2014 [facility] RBC Morph Normal (04/25/14 4:40 AM) 04/25/2014 [facility] Plt Morph Normal (04/25/14 4:40 AM) 04/25/2014 [facility] Monocytes # 0.2 K/CMM 0.0 - 0.8 04/25/2014 [facility] Lymphocytes # 2.3 K/CMM 1.0 - 5.5 04/25/2014 [facility] Segs-Bands # 4.6 K/CMM 1.5 - 8.1 04/25/2014 [facility] Basophils # 0.1 K/CMM 0.0 - 0.2 04/25/2014 [facility] Lymphocytes 30.0 % 20.0 - 40.0 04/25/2014 [facility] HEMATOLOGY Segs 60.0 % 45.0 - 75.0 04/25/2014 [facility] HEMATOLOGY Bands 0.0 % 0.0 - 11.0 04/25/2014 [facility] HEMATOLOGY Basophils 1.0 % 0.0 - 1.0 04/25/2014 [facility] HEMATOLOGY Monocytes 3.0 % 2.0 - 12.0 04/25/2014 [facility] HEMATOLOGY Eosinophils 6.0 % 0.0 - 4.0 04/25/2014 [facility] HEMATOLOGY Eosinophils # 0.5 K/CMM 0.0 - 0.5 04/25/2014 [facility] HEMATOLOGY RDW 14.2 % 11.5 - 14.5 04/25/2014 [facility] HEMATOLOGY Platelet 77 K/CMM 133 - 450 04/25/2014 [facility] HEMATOLOGY MPV 9.1 fL 7.4 - 10.4 04/25/2014 [facility] HEMATOLOGY Hct 34.7 % 36.0 - 48.0 04/25/2014 [facility] HEMATOLOGY Hgb 12.4 g/dL 12.0 - 16.0 04/25/2014 [facility] HEMATOLOGY MCV 93.1 fL 80.0 - 98.0 04/25/2014 [facility] HEMATOLOGY MCH 33.4 pg 27.0 - 31.0 04/25/2014 [facility] HEMATOLOGY MCHC 35.8 g/dL 32.0 - 36.0 04/25/2014 [facility] HEMATOLOGY RBC 3.73 M/CMM 4.20 - 5.40 04/25/2014 [facility] HEMATOLOGY WBC 7.6 K/CMM 3.7 - 10.4 04/25/2014 [facility] Vital Signs Vital Sign Value Date Comments Source Temperature Oral (F) 98.3 F 11/11/2017 [facility] Heart Rate 62 11/11/2017 [facility] Respitory Rate 16 11/11/2017 [facility] Systolic (mm Hg) 131 11/11/2017 [facility] Diastolic (mm Hg) 67 11/11/2017 [facility] Respitory Rate 12 11/11/2017 [facility] Heart Rate 63 11/11/2017 [facility] Systolic (mm Hg) 151 11/11/2017 [facility] Diastolic (mm Hg) 69 11/11/2017 [facility] Temperature Oral (F) 99.2 F 11/11/2017 [facility] Systolic (mm Hg) 95 11/11/2017 [facility] Diastolic (mm Hg) 58 11/11/2017 [facility] Heart Rate 58 11/11/2017 [facility] Temperature Oral (F) 98.3 F 11/11/2017 [facility] Respitory Rate 18 11/11/2017 [facility] BMI Calculated 33.02 10/29/2017 [facility] Weight 90 10/29/2017 [facility] Height 165.1 cm 10/29/2017 [facility] Systolic (mm Hg) 124 08/18/2017 [facility] Diastolic (mm Hg) 70 08/18/2017 [facility] Temperature Oral (F) 98.1 F 08/18/2017 [facility] Heart Rate 90 08/18/2017 [facility] Height 170.18 cm 08/18/2017 [facility] BMI Calculated 32.02 08/18/2017 [facility] Weight 92.727 08/18/2017 [facility] Respitory Rate 64 03/09/2017 [facility] Respitory Rate 21 03/09/2017 [facility] Systolic (mm Hg) 145 03/09/2017 [facility] Diastolic (mm Hg) 66 03/09/2017 [facility] Respitory Rate 13 03/09/2017 [facility] Systolic (mm Hg) 151 03/09/2017 [facility] Diastolic (mm Hg) 67 03/09/2017 [facility] Systolic (mm Hg) 144 03/09/2017 [facility] Diastolic (mm Hg) 67 03/09/2017 [facility] Weight 94.091 03/09/2017 [facility] BMI Calculated 32.49 03/09/2017 [facility] Height 170.18 cm 03/09/2017 [facility] Respitory Rate 17 10/20/2016 [facility] Respitory Rate 16 10/20/2016 [facility] Systolic (mm Hg) 140 10/20/2016 [facility] Diastolic (mm Hg) 59 10/20/2016 [facility] Systolic (mm Hg) 132 10/20/2016 [facility] Diastolic (mm Hg) 56 10/20/2016 [facility] Respitory Rate 16 10/20/2016 [facility] Systolic (mm Hg) 130 10/20/2016 [facility] Diastolic (mm Hg) 60 10/20/2016 [facility] Temperature Oral (F) 97.8 F 10/20/2016 [facility] Weight 90.455 10/20/2016 [facility] BMI Calculated 31.23 10/20/2016 [facility] Height 170.18 cm 10/20/2016 [facility] Systolic (mm Hg) 153 03/13/2015 [facility] Diastolic (mm Hg) 53 03/13/2015 [facility] Respitory Rate 15 03/13/2015 [facility] Systolic (mm Hg) 135 03/13/2015 [facility] Diastolic (mm Hg) 51 03/13/2015 [facility] Respitory Rate 20 03/13/2015 [facility] Respitory Rate 24 03/13/2015 [facility] Systolic (mm Hg) 134 03/13/2015 [facility] Diastolic (mm Hg) 53 03/13/2015 [facility] Heart Rate 58 03/13/2015 [facility] Weight 71.818 03/12/2015 [facility] BMI Calculated 25.56 03/12/2015 [facility] Height 167.64 cm 03/12/2015 [facility] Height 167.64 cm 04/25/2014 [facility] BMI Calculated 28.14 04/25/2014 [facility] Weight 79.091 04/25/2014 [facility] Encounters Location Location Details Encounter Type Encounter Number Reason For Visit Attending Provider ADM Date DC Date Status Source [facility] Outpatient [id number] Ольга De Leon 04/25/2014 04/26/2014 [facility] Bed[facility] Outpatient [id number] Jeremy Mccabe 03/13/2015 03/13/2015 [facility] [id number] Igor Ruiz 09/05/2015 09/06/2015 [facility] [place] [facility] [id number] Neftali Gallardo 02/25/2016 02/26/2016 [facility] [place] [facility] [id number] Neftali Gallardo 03/06/2016 03/07/2016 [facility] Bedded Outpatient [id number] Hugh See 10/20/2016 10/20/2016 [facility] Bedded Outpatient [id number] Hugh See 03/09/2017 03/09/2017 [facility] [place] [facility] [id number] Neftali Gallardo 03/18/2017 03/19/2017 [facility] [place] [facility] [id number] Neftali Gallardo 05/05/2017 05/06/2017 [facility] Out[facility] [id number] Moreno Caballero 08/18/2017 08/18/2017 [facility] Inpatient [id number] Moreno Caballero 11/04/2017 11/11/2017 [facility] Procedure Code Date Perfomer Comments Source Angiogram [id number] 03/09/2017 [facility] Colonoscopy [id number] 03/13/2015 [facility] Esophagogastroduodenoscopy [id number] 03/13/2015 [facility] Craniotomy 92516390 [facility] Laminectomy [id number] [facility] Appendectomy 80556257 [facility] Back fusion [id number] [facility] section 24015137 [facility] Excision of gallbladder 35951314 [facility] Hysterectomy 130702154 [facility] Tonsillectomy [id number] [facility] Appendectomy 15262625 [facility] Back fusion [id number] [facility] section [id number] [facility] [facility]4213 [facility]783476 [facility]ste[facility] 121092625 [facility] Laminectomy 921811024 [facility] Tonsillectomy 028477658 [facility] Appendectomy 56129603 [facility] Back fusion [id number] [facility] section [id number] [facility] Craniotomy [id number] [facility] Excision of gallbladder 99788153 [facility] Hysterectomy [id number] [facility] Laminectomy [id number] [facility] Tonsillectomy [id number] [facility] Appendectomy<sup>1</sup> [id number] [facility]
--- OUTSIDE RECORDS SUMMARY | 2018-03-08 16:37 | XMS REPORT | Summary of Care ---
Author Author [facility] Outpatient Imaging [facility] Outpatient Imaging [facility] Address Unknown Phone Unavailable Encounter KELSY Salvador(ANNA) [id number] Date(s): 03/18/17 - 03/18/17 [facility] Outpatient Imaging [facility] [address] [facility], [address] [place] [address] [phone] Discharge Disposition: Home or Self Care Attending Physician: Neftali Gallardo MD Vital Signs No data available for this section Problem List Condition Effective Dates Status Health Status Informant Abdominal Resolved pain(Confirmed) Back pain(Confirmed) Resolved COPD(Confirmed) Resolved Diabetes(Confirmed) Resolved GERD Resolved (gastroesophageal reflux disease)(Confirmed) Hypertension(Confirm Resolved ed) Migraine Resolved headache(Confirmed) Seizure(Confirmed) Resolved Thrombocytopenia(Con Resolved firmed) Allergies, Adverse Reactions, Alerts Substance Reaction Severity Status codeine Active contrast media Active (iodine-based) Dilantin Active yuan-type local Active anesthetics PHENobarbital Sodium Active TEGretol Active Medications No data available for this section Results No data available for this section Immunizations No data available for this section Procedures Procedure Date Related Diagnosis Body Site Appendectomy Back fusion section Craniotomy Excision of gallbladder Hysterectomy Laminectomy Tonsillectomy Social History Social History Type Response Smoking Status Current every day smoker; Type: Cigarettes; Number of years: 41; Previous treatment: None; Ready to change: No; Concerns about tobacco use in household: No; Lives with someone who smokes; Cigarette Smoking Last 365 Days Yes; Reg Smoking Cessation Counseling Yes Assessment and Plan No data available for this section
--- OUTSIDE RECORDS SUMMARY | 2018-03-08 16:37 | XMS REPORT | Summary of Care ---
Author Author [facility] Organization [facility] Address Unknown Phone Unavailable Encounter KELSY Salvador(ANNA) [id number] Date(s): 10/20/16 - 10/20/16 [facility] [address] [employer] provided by [employer] [facility] [employer] [place] [address]- Discharge Disposition: Home or Self Care Attending Physician: Hugh See MD Admitting Physician: Hugh See MD Referring Physician: Hugh See MD Vital Signs 1 2 3 Most recent to oldest [Reference Range]: 170.18 cm (10/20/16 6:25 AM) Height 97.8 DegF (10/20/16 6:30 AM) Temperature Oral [96.4-99.1 DegF] 140/59 mmHg (10/20/16 2:30 PM) 132/56 mmHg (10/20/16 2:00 PM) 130/60 mmHg (10/20/16 1:30 PM) Blood Pressure [90-140/60-90 mmHg] 17 BRMIN (10/20/16 3:00 PM) 16 BRMIN (10/20/16 2:30 PM) 16 BRMIN (10/20/16 2:00 PM) Respiratory Rate [14-20 BRMIN] 90.455 kg (10/20/16 6:25 AM) Weight 31.23 m2 (10/20/16 6:25 AM) Body Mass Index Problem List Condition Effective Dates Status Health Status Informant Abdominal Resolved pain(Confirmed) Back pain(Confirmed) Resolved COPD(Confirmed) Resolved Diabetes(Confirmed) Resolved GERD Resolved (gastroesophageal reflux disease)(Confirmed) Hypertension(Confirm Resolved ed) Migraine Resolved headache(Confirmed) Seizure(Confirmed) Resolved Thrombocytopenia(Con Resolved firmed) Allergies, Adverse Reactions, Alerts Substance Reaction Severity Status codeine Active contrast media Active (iodine-based) Dilantin Active yuan-type local Active anesthetics PHENobarbital Sodium Active TEGretol Active Medications amLODIPine 5 mg, 1 tab, Route: PO, Drug form: TAB, Daily, Dosing Weight 90.455, kg, Start d ate: 10/21/16 9:00:00 CDT, Duration: 30 day, Stop date: 11/19/16 9:00:00 CDT Notes: (Same as: Norvasc) Start Date: 10/21/16 Stop Date: 10/20/16 Status: Canceled amLODIPine 5 mg oral tablet 5 mg=1 tab, PO, Daily, # 30 tab, 0 Refill(s) Start Date: 10/20/16 Status: Ordered aspirin 81 mg tablet, enteric coated 81 mg=1 tab, PO, Daily, # 90 tab, 3 Refill(s) Start Date: 10/20/16 Status: Ordered aspirin 81 mg tablet, enteric coated 81 mg, 1 tab, Route: PO, Drug form: ECTAB, Daily, Dosing Weight 90.455, kg, Star t date: 10/21/16 9:00:00 CDT, Duration: 30 day, Stop date: 11/19/16 9:00:00 CDT Notes: Do not crush or chew.(Same As: Ecotrin) Start Date: 10/21/16 Stop Date: 10/20/16 Status: Canceled atorvastatin 40 mg, 1 tab, Route: PO, Drug form: TAB, Bedtime, Dosing Weight 90.455, kg, Star t date: 10/20/16 21:00:00 CDT, Duration: 30 day, Stop date: 11/18/16 21:00:00 CD T Notes: (Same as: Lipitor) Start Date: 10/20/16 Stop Date: 10/20/16 Status: Canceled Benadryl 50 mg, 1 mL, Route: IV, Drug form: INJ, ONCALL, Start date: 10/20/16 7:00:00 CDT , Duration: 1 doses or times Notes: (Same as: Benadryl) Start Date: 10/20/16 Stop Date: 10/20/16 Status: Completed Cozaar 100 mg, 2 tab, Route: PO, Drug form: TAB, Daily, Start date: 10/21/16 9:00:00 CD T, Duration: 30 day, Stop date: 11/19/16 9:00:00 CDT Notes: (Same as: Corichar) Start Date: 10/21/16 Stop Date: 10/20/16 Status: Canceled famotidine 20 mg, 2 mL, Route: IVP, Drug form: INJ, ONCALL, Start date: 10/20/16 7:00:00 CD T, Duration: 1 doses or times Notes: (Same as: Pepcid)Can be dilute in 5-10cc NS IVP: Slow IV push over at le ast 2 minutes. Start Date: 10/20/16 Stop Date: 10/20/16 Status: Completed fluticasone nasal 0.05 mg/inh spray 1 spray, NASAL, Daily, 0 Refill(s) Start Date: 10/20/16 Status: Ordered fluticasone nasal 0.05 mg/inh spray 1 spray, Route: NASAL, Drug Form: SPRY, Dosing Weight 90.455, kg, Daily, Start d ate: 10/21/16 9:00:00 CDT, Duration: 30 day, Stop date: 11/19/16 9:00:00 CDT Notes: (Same as: Flonasjacinta) Start Date: 10/21/16 Stop Date: 10/20/16 Status: Canceled hydrochlorothiazide-losartan 12.5 mg-100 mg oral tablet 1 tab, PO, Daily, # 30 tab, 0 Refill(s) Start Date: 10/20/16 Status: Ordered hydrochlorothiazide-losartan 12.5 mg-100 mg oral tablet 1 tab, Route: PO, Drug Form: TAB, Dosing Weight 90.455, kg, Daily, Start date: 0 10/21/16 9:00:00 CDT, Duration: 30 day, Stop date: 11/19/16 9:00:00 CDT Start Date: 10/21/16 Stop Date: 10/20/16 Status: Discontinued Insulin regular 10 unit, 0.1 mL, Route: SUB-Q, Drug form: SOLN, ONCE, Dosing Weight 90.455, kg, Start date: 10/20/16 8:10:00 CDT, Stop date: 10/20/16 8:10:00 CDT Notes: (Same as: Humulin R) Roll in palms of hands gently; Do not shake vigorou sly. "single patient use only"(Restricted to patients requiring a dose > 60 units)WASTE: F/P - Black; E - Municipal Trash Bin Stable for 28 days at room temperatureExpires in days from Date Start Date: 10/20/16 Stop Date: 10/20/16 Status: Completed metFORMIN 1000 mg oral tablet 1,000 mg, 1 tab, Route: PO, Drug form: TAB, BID, Dosing Weight 90.455, kg, Start date: 10/20/16 17:00:00 CDT, Duration: 30 day, Stop date: 11/19/16 9:00:00 CDT Start Date: 10/20/16 Stop Date: 10/20/16 Status: Discontinued methylPREDNISolone 125 mg, 2 mL, Route: IV, Drug form: INJ, ONCALL, Start date: 10/20/16 7:00:00 CD T, Duration: 1 doses or times Notes: (Same as:Solu-MEDROL, A-Methapred) Start Date: 10/20/16 Stop Date: 10/20/16 Status: Completed metoclopramide 5 mg oral tablet 5 mg=1 tab, PO, QID-Before Meals, PRN as needed, 0 Refill(s) Start Date: 10/20/16 Status: Ordered metoprolol 50 mg oral tablet, extended release 50 mg=1 tab, PO, Daily, # 30 tab, 0 Refill(s) Start Date: 10/20/16 Status: Ordered metoprolol extended release 50 mg, 1 tab, Route: PO, Drug form: ERTAB, Daily, Start date: 10/21/16 9:00:00 C DT, Duration: 30 day, Stop date: 11/19/16 9:00:00 CDT Notes: (Same as: Toprol XL) May split tab, but do not crush. Start Date: 10/21/16 Stop Date: 10/20/16 Status: Canceled Microzide 12.5 mg, 1 cap, Route: PO, Drug form: CAP, Daily, Start date: 10/21/16 9:00:00 C DT, Duration: 30 day, Stop date: 11/19/16 9:00:00 CDT Notes: (Same as: Microzide) With food. Start Date: 10/21/16 Stop Date: 10/20/16 Status: Canceled nitroglycerin SL Tab 0.4 mg, 1 tab, Route: SL, Drug form: TAB, Q5Min, Dosing Weight 90.455, kg, PRN C hest Pain, Start date: 10/20/16 12:00:00 CDT, Duration: 3 doses or times, Stop d ate: Limited # of times Notes: (Same as:Nitroquick, Nitrostat)"Do Not Crush" Sublingual tablet Start Date: 10/20/16 Stop Date: 10/20/16 Status: Discontinued ProAir HFA 90 mcg/inh inhalation aerosol with adapter 1 puff, Route: INHALER, Drug Form: AERO/A, Dosing Weight 90.455, kg, Q4H, PRN Wh eezing, Start date: 10/20/16 12:05:00 CDT, Duration: 30 day, Stop date: 11/19/16 12:04:00 CDT Notes: Same as: Ventolin HFAWASTE: Aerosol - Return to Pharmacy Start Date: 10/20/16 Stop Date: 10/20/16 Status: Discontinued Sodium Chloride 0.9% (Bolus) IV 250 mL, 250 ml/hr, Infuse Over: 1 hr, Route: IV, 250, Drug form: INJ, ONCE, Dosi ng Weight 90.455 kg, Start date: 10/20/16 12:00:00 CDT, Duration: 1 doses or raven es, Stop date: 10/20/16 12:00:00 CDT Start Date: 10/20/16 Stop Date: 10/20/16 Status: Discontinued sodium chloride 0.9% 1000 ml INJ 1,000 mL 1,000 mL, Rate: 100 ml/hr, Infuse over: 10 hr, Route: IVPB, Dosing Weight 90.455 kg, Total Volume: 1,000, Start date: 10/20/16 6:26:00 CDT, Duration: 30 day, St op date: 11/19/16 6:25:00 CDT Start Date: 10/20/16 Stop Date: 10/20/16 Status: Discontinued sodium chloride 0.9% 1000 ml INJ 750 mL 750 mL, Rate: 75 ml/hr, Infuse over: 10 hr, Route: IV, Dosing Weight 90.455 kg, Total Volume: 750, Start date: 10/20/16 12:00:00 CDT, Duration: 10 hr, Stop date : 10/20/16 21:59:00 CDT Start Date: 10/20/16 Stop Date: 10/20/16 Status: Discontinued Symbicort 160/4.5 inhalation aerosol with adapter 2 inhalation, Route: INHALER, Drug Form: AERO/A, Dosing Weight 90.455, kg, BID, Start date: 10/20/16 17:00:00 CDT, Duration: 30 day, Stop date: 11/19/16 9:00:00 CDT Notes: (Same as: Symbicort)WASTE: Aerosol - Return to Pharmacy Start Date: 10/20/16 Stop Date: 10/20/16 Status: Canceled Results BLOOD BANK RESULTS Most recent to 1 oldest [Reference Range]: ABO/Rh B POS *Unknown* (10/20/16 6:38 AM) Antibody Scrn Negative (10/20/16 6:38 AM) ELECTROLYTES Most recent to 1 oldest [Reference Range]: Sodium Lvl [135-145 139 mEq/L mEq/L] (10/20/16 6:38 AM) Potassium Lvl 3.9 mEq/L [3.5-5.1 mEq/L] (10/20/16 6:38 AM) Chloride Lvl [95-109 101 mEq/L mEq/L] (10/20/16 6:38 AM) CO2 [24-32 mEq/L] 28 mEq/L (10/20/16 6:38 AM) AGAP [10.0-20.0 13.9 mEq/L mEq/L] (10/20/16 6:38 AM) CHEM PANEL Most recent to 1 oldest [Reference Range]: Creatinine Lvl 1.84 mg/dL [0.50-1.40 mg/dL] *HI* (10/20/16 6:38 AM) eGFR 27 mL/min/1.73m2 1 *NA* (10/20/16 6:38 AM) BUN [7-22 mg/dL] 37 mg/dL *HI* (10/20/16 6:38 AM) Glucose Lvl [70-99 296 mg/dL mg/dL] *HI* (10/20/16 6:38 AM) Calcium Lvl 9.3 mg/dL [8.5-10.5 mg/dL] (10/20/16 6:38 AM) Magnesium Lvl 2.2 mg/dL [1.8-2.4 mg/dL] (10/20/16 6:38 AM) 1Result Comment: The eGFR is calculated using the [...] from the National Kidney Disease Education Program ( NKDEP) which additionally recommends that when the eGFR is used in patients with extremes of body mass index for purposes of drug dosing, the eGFR should be mul tiplied by the estimated BMI. HEMATOLOGY Most recent to 1 oldest [Reference Range]: WBC [3.7-10.4 K/CMM] 9.1 K/CMM (10/20/16 6:38 AM) RBC [4.20-5.40 3.83 M/CMM M/CMM] *LOW* (10/20/16 6:38 AM) Hgb [12.0-16.0 g/dL] 11.4 g/dL *LOW* (10/20/16 6:38 AM) Hct [36.0-48.0 %] 32.8 % *LOW* (10/20/16 6:38 AM) MCV [80.0-98.0 fL] 85.8 fL (10/20/16 6:38 AM) MCH [27.0-31.0 pg] 29.7 pg (10/20/16 6:38 AM) MCHC [32.0-36.0 34.7 g/dL g/dL] (10/20/16 6:38 AM) RDW [11.5-14.5 %] 14.0 % (10/20/16 6:38 AM) Platelet [133-450 54 K/CMM K/CMM] *LOW* (10/20/16 6:38 AM) MPV [7.4-10.4 fL] 9.5 fL (10/20/16 6:38 AM) Segs [45.0-75.0 %] 59.6 % (10/20/16 6:38 AM) Lymphocytes 25.7 % [20.0-40.0 %] (10/20/16 6:38 AM) Monocytes [2.0-12.0 7.8 % %] (10/20/16 6:38 AM) Eosinophils [0.0-4.0 5.9 % %] *HI* (10/20/16 6:38 AM) Basophils [0.0-1.0 1.0 % %] (10/20/16 6:38 AM) Segs-Bands # 5.5 K/CMM [1.5-8.1 K/CMM] (10/20/16 6:38 AM) Lymphocytes # 2.3 K/CMM [1.0-5.5 K/CMM] (10/20/16 6:38 AM) Monocytes # [0.0-0.8 0.7 K/CMM K/CMM] (10/20/16 6:38 AM) Eosinophils # 0.5 K/CMM [0.0-0.5 K/CMM] (10/20/16 6:38 AM) Basophils # [0.0-0.2 0.1 K/CMM K/CMM] (10/20/16 6:38 AM) PT [12.0-14.7 13.6 seconds seconds] (10/20/16 6:38 AM) INR [0.85-1.17] 1.02 (10/20/16 6:38 AM) PTT [22.9-35.8 32.7 seconds seconds] (10/20/16 6:38 AM) Immunizations No data available for this section Procedures Procedure Date Related Diagnosis Body Site Appendectomy Back fusion section Craniotomy Excision of gallbladder Hysterectomy Laminectomy Tonsillectomy Social History Social History Type Response Smoking Status Current every day smoker; Type: Cigarettes; Number of years: 41; Lives with someone who smokes; Cigarette Smoking Last 365 Days Yes; Reg Smoking Cessation Counseling Yes Assessment and Plan No data available for this section
--- OUTSIDE RECORDS SUMMARY | 2018-03-08 16:37 | XMS REPORT | Summary of Care ---
Author Author [facility] Outpatient Imaging [facility] Outpatient Imaging [facility] Address Unknown Phone Unavailable Encounter [facility] [place]) [id number] Date(s): 09/05/15 - 09/05/15 [facility] Outpatient Imaging [facility] [address], [address] [place], [place] [address] [phone] Discharge Disposition: Home Attending Physician: Igor Ruiz DO Vital Signs No data available for this section Problem List Condition Effective Dates Status Health Status Informant Abdominal Resolved pain(Confirmed) Back pain(Confirmed) Resolved COPD(Confirmed) Resolved Diabetes(Confirmed) Resolved GERD Resolved (gastroesophageal reflux disease)(Confirmed) Hypertension(Confirm Resolved ed) Migraine Resolved headache(Confirmed) Seizure(Confirmed) Resolved Thrombocytopenia(Con Resolved firmed) Allergies, Adverse Reactions, Alerts Substance Reaction Severity Status codeine Active contrast media Active (iodine-based) Dilantin Active PHENobarbital Sodium Active TEGretol Active Medications No [...]
--- OUTSIDE RECORDS SUMMARY | 2018-03-08 16:37 | XMS REPORT | Summary of Care ---
Author Author [facility] Outpatient Imaging [facility] Outpatient [facility] Address Unknown Phone Unavailable Encounter [facility] [place]_trish([place]) [id number] Date(s): 03/06/16 - 03/06/16 [facility] Outpatient Imaging [facility] [address], [address] [place] [phone] Discharge Disposition: Home or Self Care Attending [...]
--- OUTSIDE RECORDS SUMMARY | 2018-03-08 16:37 | XMS REPORT | Summary of Care ---
Author Organization Unknown Address Unknown Phone Unavailable Encounter KELSY Salvador(ANNA) [id number] Date(s): 04/25/14 - 04/25/14 [facility] [address] [address] Discharge Disposition: Home Physician Attending: Ольга De Leon MD Physician_Referring: Ольга De Leon MD Reason for Visit THROMBOCYTOPENIA Vital Signs Most recent to 1 oldest [Reference Range]: Height 167.64 cm (04/25/14 1:18 PM) Weight 79.091 kg (04/25/14 1:18 PM) Body Mass Index 28.14 m2 (04/25/14 1:18 PM) Problem List Condition Effective Dates Status Health Status Informant Back pain(Confirmed) Resolved Diabetes(Confirmed) Resolved GERD Resolved (gastroesophageal reflux disease)(Confirmed) Hypertension(Confirm Resolved ed) Migraine Resolved headache(Confirmed) Seizure(Confirmed) Resolved Thrombocytopenia(Con Resolved firmed) Allergies, Adverse Reactions, Alerts Substance Reaction Severity Status codeine Active contrast media Active (iodine-based) Dilantin Active PHENobarbital Sodium Active TEGretol Active Medications azaTHIOprine 50 mg oral tablet 50 mg=1 tab, PO, Daily, 0 Refill(s) Start Date: 04/25/14 Status: Ordered diazepam 5 mg oral tablet 5 mg=1 tab, PO, QID, Anxiety, 0 Refill(s) Start Date: 04/25/14 Status: Ordered Fioricet 300 mg-50 mg-40 mg oral capsule 1 cap, PO, Q4H, PRN Headache, Do not exceed 6 capsules in 24 hours, # 60 cap, 0 Refill(s) Special Instructions: Do not exceed 6 capsules in 24 hours Start Date: 04/25/14 Status: Ordered furosemide 20 mg oral tablet 20 mg=1 tab, PO, Daily, # 30 tab, 0 Refill(s) Start Date: 04/25/14 Status: Ordered hydrochlorothiazide-losartan 25 mg-100 mg oral tablet 1 tab, PO, Daily, # 30 tab, 0 Refill(s) Start Date: 04/25/14 Status: Ordered metFORMIN 1000 mg oral tablet 1,000 mg=1 tab, PO, BID, # 30 tab, 0 Refill(s) Start Date: 04/25/14 Status: Ordered metoclopramide 5 mg oral tablet PO, BID, 0 Refill(s) Start Date: 04/25/14 Status: Ordered [employer] 5/325 oral tablet 1-2 tab, PO, Q4-6H, Pain, # 30 tab, 0 Refill(s) Start Date: 04/25/14 Stop Date: 04/30/14 Status: Ordered omega-3 polyunsaturated fatty acids 1000 mg oral capsule PO, Daily, 0 Refill(s) Start Date: 04/25/14 Status: Ordered omeprazole 40 mg oral delayed release capsule 40 mg=1 cap, PO, Daily, # 30 cap, 0 Refill(s) Start Date: 04/25/14 Status: Ordered trazodone 50 mg oral tablet PO, Bedtime, 0 Refill(s) Start Date: 04/25/14 Status: Ordered Vitamin B-12 500 mcg oral tablet 2,500 microgram=5 tab, PO, 0 Refill(s) Start Date: 04/25/14 Status: Ordered Vitamin C PO, Daily, 0 Refill(s) Start Date: 04/25/14 Status: Ordered Vitamin D3 1000 intl units oral capsule 1,000 IntlUnit=1 cap, PO, Daily, # 100 cap, 0 Refill(s) Start Date: 04/25/14 Status: Ordered Results HEMATOLOGY Most recent to 1 oldest [Reference Range]: WBC [3.7-10.4 K/CMM] 7.6 K/CMM (04/25/14 4:40 AM) RBC [4.20-5.40 3.73 M/CMM M/CMM] *LOW* (04/25/14 4:40 AM) Hgb [12.0-16.0 g/dL] 12.4 g/dL (04/25/14 4:40 AM) Hct [36.0-48.0 %] 34.7 % *LOW* (04/25/14 4:40 AM) MCV [80.0-98.0 fL] 93.1 fL (04/25/14 4:40 AM) MCH [27.0-31.0 pg] 33.4 pg *HI* (04/25/14 4:40 AM) MCHC [32.0-36.0 35.8 g/dL g/dL] (04/25/14 4:40 AM) RDW [11.5-14.5 %] 14.2 % (04/25/14 4:40 AM) Platelet [133-450 77 K/CMM K/CMM] *LOW* (04/25/14 4:40 AM) MPV [7.4-10.4 fL] 9.1 fL (04/25/14 4:40 AM) Segs [45.0-75.0 %] 60.0 % (04/25/14 4:40 AM) Bands [0.0-11.0 %] 0.0 % (04/25/14 4:40 AM) Lymphocytes 30.0 % [20.0-40.0 %] (04/25/14 4:40 AM) Atypical Lymphs 0.0 % [<=0.0 %] (04/25/14 4:40 AM) Monocytes [2.0-12.0 3.0 % %] (04/25/14 4:40 AM) Eosinophils [0.0-4.0 6.0 % %] *HI* (04/25/14 4:40 AM) Basophils [0.0-1.0 1.0 % %] (04/25/14 4:40 AM) Segs-Bands # 4.6 K/CMM [1.5-8.1 K/CMM] (04/25/14 4:40 AM) Lymphocytes # 2.3 K/CMM [1.0-5.5 K/CMM] (04/25/14 4:40 AM) Monocytes # [0.0-0.8 0.2 K/CMM K/CMM] (04/25/14 4:40 AM) Eosinophils # 0.5 K/CMM [0.0-0.5 K/CMM] (04/25/14 4:40 AM) Basophils # [0.0-0.2 0.1 K/CMM K/CMM] (04/25/14 4:40 AM) RBC Morph Normal (04/25/14 4:40 AM) Plt Morph Normal (04/25/14 4:40 AM) Medications Administered During Your Visit No data available for this section Immunizations No data available for this section Procedures Procedure Type Body Site Date of Procedure Related Diagnosis Craniotomy Laminectomy Social History Social History Type Response Smoking Status Former smoker, Type: Cigarettes, Lives with someone who smokes, Cigarette Smoking Last 365 Days Yes, Reg Smoking Cessation Counseling No Assessment and Plan Extracted from: Title: IR Bone Marrow Biopsy Author: Carlos Dangelo MD Date: 04/25/14 PROCEDURE REQUESTED: Bone marrow biopsy REQUESTING PHYSICIAN: Ольга De Leon MD (Oncology) HISTORY/INDICATIONS: Thrombocytopenia MEDICAL: Chronic back pain, seizure disorder, hypertension, migraine headaches, diabetes, GERD PROCEDURAL HISTORY: Lumbar laminectomy, craniotomy MEDICATIONS: Hydrocodone-APAP, [id number], metformin, diazepam, omeprozole, metaclopramide, azathiorprin, trazadone, [place] 3, Vit D, Losartin, Vit B12, fish oil ALLERGIES: Iodinated contrast, tegretol, codeine, phenobarbital, dilantin PHYSICAL FINDINGS: BP 156/49 P 72 R 18 Alert, oriented, no acute distress SaO2 100% ETCO2 36 Regular rythym IMPRESSION: Thrombocytopenia PLAN: Bone marrow biopsy with fluoroscopy. Discussed procedure and risks with patient and . ASA: III
--- OUTSIDE RECORDS SUMMARY | 2018-03-08 16:37 | XMS REPORT | Summary of Care ---
Author Author [facility] Organization [facility] Address Unknown Phone Unavailable Encounter [facility] [place](ANNA) [id number] Date(s): 03/09/17 - 03/09/17 [facility] [address] [employer] provided by [facility] [place] [address]- Discharge Disposition: Home or Self Care Attending Physician: Hugh See MD Admitting Physician: Hugh See MD Referring Physician: Hugh See MD Vital Signs 1 2 3 Most recent to oldest [Reference Range]: 170.18 cm (03/09/17 6:50 AM) Height 145/66 mmHg *HI* (03/09/17 1:00 PM) 151/67 mmHg *HI* (03/09/17 12:45 PM) 144/67 mmHg *HI* (03/09/17 12:30 PM) Blood Pressure [90-140/60-90 mmHg] 64 BRMIN *HI* (03/09/17 1:30 PM) 21 BRMIN *HI* (03/09/17 1:15 PM) 13 BRMIN *LOW* (03/09/17 1:00 PM) Respiratory Rate [14-20 BRMIN] 94.091 kg (03/09/17 6:50 AM) Weight 32.49 m2 (03/09/17 6:50 AM) Body Mass Index Problem List Condition [...] anesthetics PHENobarbital Sodium Active TEGretol Active Medications diphenhydrAMINE 50 mg, 1 mL, Route: IVP, Drug form: INJ, ONCE, Dosing Weight 94.091, kg, Start d ate: 03/09/17 7:30:00 CDT, Stop date: 03/09/17 7:30:00 CDT Notes: (Same as: Benadryl) Start Date: 03/09/17 Stop Date: 03/09/17 Status: Completed famotidine 20 mg, 2 mL, Route: IVP, Drug form: INJ, ONCE, Dosing Weight 94.091, kg, Start d ate: 03/09/17 7:30:00 CDT, Stop date: 03/09/17 7:30:00 CDT Notes: (Same as: Pepcid)Can be dilute in 5-10cc NS IVP: Slow IV push over at le ast 2 minutes. Start Date: 03/09/17 Stop Date: 03/09/17 Status: Completed glimepiride 4 mg oral tablet 4 mg=1 tab, PO, BID, # 90 tab, 1 Refill(s) Start Date: 03/09/17 Status: Ordered isosorbide mononitrate 60 mg oral tablet, extended release 60 mg=1 tab, PO, QAM, # 90 tab, 3 Refill(s) Start Date: 03/09/17 Status: Ordered lisinopril 10 mg oral tablet 10 mg=1 tab, PO, Daily, # 90 tab, 1 Refill(s) Start Date: 03/09/17 Status: Ordered methylPREDNISolone SODium SUCCinate 125 mg, 2 mL, Route: IVP, Drug form: INJ, ONCE, Dosing Weight 94.091, kg, Start date: 03/09/17 7:30:00 CDT, Stop date: 03/09/17 7:30:00 CDT Notes: (Same as:Solu-MEDROL, A-Methapred) Start Date: 03/09/17 Stop Date: 03/09/17 Status: Completed [place] 5/325 oral tablet 0.5 tab, PO, BID, PRN, # 30 tab, 0 Refill(s) Start Date: 03/09/17 Stop Date: 03/14/17 Status: Ordered omeprazole 40 mg oral delayed release capsule 40 mg=1 cap, PO, Daily, # 90 cap, 0 Refill(s) Start Date: 03/09/17 Status: Ordered Sodium Chloride 0.9% (Bolus) IV 250 mL, 250 ml/hr, Infuse Over: 1 hr, Route: IV, 250, Drug form: INJ, ONCALL, Pr iority: Routine, Dosing Weight 94.091 kg, Start date: 03/09/17 11:00:00 CDT, Dur ation: 1 doses or times Start Date: 03/09/17 Stop Date: 03/09/17 Status: Discontinued sodium chloride 0.9% 1000 ml INJ 1,000 mL 1,000 mL, Rate: 75 ml/hr, Infuse over: 13.3 hr, Route: IVPB, Dosing Weight 94.09 1 kg, Total Volume: 1,000, Start date: 03/09/17 6:53:00 CDT, Duration: 30 day, S top date: 04/08/17 6:52: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 Start Date: 03/09/17 Stop Date: 03/09/17 Status: Discontinued sodium chloride 0.9% 1000 ml INJ 750 mL 750 mL, Rate: 75 ml/hr, Infuse over: 10 hr, Route: IV, Dosing Weight 94.091 kg, Total Volume: 750, Start date: 03/09/17 10:30:00 CDT, Duration: 24 hr, Stop date : 03/10/17 10:29:00 CDT Start Date: 03/09/17 Stop Date: 03/09/17 Status: Discontinued Results BLOOD BANK RESULTS Most recent to 1 oldest [Reference Range]: ABO/Rh B POS *Unknown* (03/09/17 6:58 AM) Antibody Scrn Negative (03/09/17 6:58 AM) ELECTROLYTES Most recent to 1 oldest [Reference Range]: Sodium Lvl [135-145 139 mEq/L mEq/L] (03/09/17 6:58 AM) Potassium Lvl 3.5 mEq/L [3.5-5.1 mEq/L] (03/09/17 6:58 AM) Chloride Lvl [95-109 101 mEq/L mEq/L] (03/09/17 6:58 AM) CO2 [24-32 mEq/L] 25 mEq/L (03/09/17 6:58 AM) AGAP [10.0-20.0 16.5 mEq/L mEq/L] (03/09/17 6:58 AM) CHEM PANEL Most recent to 1 oldest [Reference Range]: Creatinine Lvl 2.13 mg/dL [0.50-1.40 mg/dL] *HI* (03/09/17 6:58 AM) eGFR 23 mL/min/1.73m2 1 *NA* (03/09/17 6:58 AM) BUN [7-22 mg/dL] 30 mg/dL *HI* (03/09/17 6:58 AM) Glucose Lvl [70-99 264 mg/dL mg/dL] *HI* (03/09/17 6:58 AM) Calcium Lvl 9.1 mg/dL [8.5-10.5 mg/dL] (03/09/17 6:58 AM) Magnesium Lvl 1.9 mg/dL [1.8-2.4 mg/dL] (03/09/17 6:58 AM) 1Result Comment: The eGFR is calculated [...] 1 oldest [Reference Range]: WBC [3.7-10.4 K/CMM] 11.4 K/CMM *HI* (03/09/17 6:58 AM) RBC [4.20-5.40 4.03 M/CMM M/CMM] *LOW* (03/09/17 6:58 AM) Hgb [12.0-16.0 g/dL] 11.7 g/dL *LOW* (03/09/17 6:58 AM) Hct [36.0-48.0 %] 34.9 % *LOW* (03/09/17 6:58 AM) MCV [80.0-98.0 fL] 86.5 fL (03/09/17 6:58 AM) MCH [27.0-31.0 pg] 29.1 pg (03/09/17 6:58 AM) MCHC [32.0-36.0 33.6 g/dL g/dL] (03/09/17 6:58 AM) RDW [11.5-14.5 %] 14.1 % (03/09/17 6:58 AM) Platelet [133-450 47 K/CMM K/CMM] *LOW* (03/09/17 6:58 AM) MPV [7.4-10.4 fL] 9.8 fL (03/09/17 6:58 AM) Segs [45.0-75.0 %] 60.2 % (03/09/17 6:58 AM) Lymphocytes 29.5 % [20.0-40.0 %] (03/09/17 6:58 AM) Monocytes [2.0-12.0 5.8 % %] (03/09/17 6:58 AM) Eosinophils [0.0-4.0 3.7 % %] (03/09/17 6:58 AM) Basophils [0.0-1.0 0.8 % %] (03/09/17 6:58 AM) Segs-Bands # 6.8 K/CMM [1.5-8.1 K/CMM] (03/09/17 6:58 AM) Lymphocytes # 3.4 K/CMM [1.0-5.5 K/CMM] (03/09/17 6:58 AM) Monocytes # [0.0-0.8 0.7 K/CMM K/CMM] (03/09/17 6:58 AM) Eosinophils # 0.4 K/CMM [0.0-0.5 K/CMM] (03/09/17 6:58 AM) Basophils # [0.0-0.2 0.1 K/CMM K/CMM] (03/09/17 6:58 AM) PT [12.0-14.7 13.1 seconds seconds] (03/09/17 6:58 AM) INR [0.85-1.17] 0.99 (03/09/17 6:58 AM) PTT [22.9-35.8 25.9 seconds seconds] (03/09/17 6:58 AM) Immunizations No data available for this [...] Smoking Cessation Counseling Yes Assessment and Plan Extracted from: Title: Peripheral Angiogram Author: Stephan Garrido (Fellow) Date: 03/09/17 DATE OF OPERATION/PROCEDURE: 03/09/2017 ATTENDING PHYSICIAN: Dr. Hugh See PROCEDURES PERFORMED: 1. Angiogram of left common illiac artery 2. Angiogram of the left lower extremity with peripheral run off 3. Angiogram of the right common iliac artery 4. Conscious sedation INDICATION FOR PROCEDURE: 71 year old ex smoker female with abnormal ABIs and severe intermittent claudication. OPERATORS: 1. Dr. Hugh See,interventional cardiology attending. 2. Dr. Stephan Garrido, hand drawer in helper. ESTIMATED BLOOD LOSS: Less than 10 mL. SYSTEMIC SEDATION: Moderate sedation was provided with a total of intravenous fentanyl 25 mcg and midazolam 1 mg. Lidocaine 1% was used for local anesthesia. Heart rate, rhythm, and pulse oximetry were continuously recorded and monitored in real time throughout the procedure by a trained dedicated interventional cardiology catheterization laboratory RN under my direct supervision. Dr. Stephan Garrido was Independent Trained Observer ([facility]). Blood pressure was monitored in 5 minute increments. Total sedation time was 45 minutes. There was no complications from the sedation. PROCEDURE DETAILS: The patient was brought to the cardiac catheterization laboratory in a fasting state after written informed consent was obtained A team timeout was performed. Systemic sedation was given prior to administering local anesthesia. The bilateral groins were prepped and draped in the usual manner. Approximately 10 mL of 1% lidocaine was used over the right groin for local anesthesia. The micropuncture needle was then used to locate the right femoral artery, and a 6- Greek sheath was placed via modified Seldinger technique. The peripheral angiogram was then performed. The 5-Greek Omniflush catheter was advanced into the left common illiac artery underflouroscopic guidance and an angiogram was recoreded. The Omniflush catheter was then removed. A 4-Greek 3DRC catheter was inserted and advanced into the right superficial femoral artery. The 3DRC catheter was then removed and exchanged for the 5-Greek Omniflush catheter and an angiogram of the superficial femoral artery and left lower extremity was recorded. The Omniflush catheter was then pulled back to the right common illiac artery and an angiogram was recorded. The Omniflush catheter was then removed. Finally, arterial sheath was removed and manual pressure was held until adequate hemostasis was achieved. The patient tolerated the procedure well with no immediate complications. ANGIOGRAPHIC FINDINGS: Lower extremities: The left common femoral artery has a tortuos course with calcification just before the bifurcation of the profunda and superficial arteries. There is a LAMINATION ASSEMBLER of the mid common femoral artery that reconstitutes just before the popliteal artery. Collaterals are seen feeding the distal portion of the vessel. The left lower extremity has 3-Vessel runoff. The right external illiac has a small ulcerated plaque. IMPRESSION: 1. LAMINATION ASSEMBLER of the left superficial femoral artery that reconstitues with collaterals just before the popliteal artery. PLAN: 1. Refer to vascular surgery to evaluate for bypass. She will follow up with Dr. Federico See was present and supervised this procedure
--- OUTSIDE RECORDS SUMMARY | 2018-03-08 16:37 | XMS REPORT | Summary of Care ---
Author Author [facility] Outpatient Imaging [facility] Outpatient Imaging [facility] Address Unknown Phone Unavailable Encounter KELSY Salvador(ANNA) [id number] Date(s): 05/05/17 - 05/05/17 [facility] Outpatient Imaging [facility] [address] [facility], [address] [place] [phone] Discharge Disposition: Home or Self Care Attending Physician: Neftali Gallardo MD Vital Signs No data available for this section Problem List Condition Effective Dates Status Health Status Informant Abdominal Resolved pain(Confirmed) Back pain(Confirmed) Resolved COPD(Confirmed) Resolved Diabetes(Confirmed) Resolved GERD Resolved (gastroesophageal reflux disease)(Confirmed) Hypertension(Confirm Resolved ed) Migraine Resolved headache(Confirmed) Seizure(Confirmed) Resolved Thrombocytopenia(Con Resolved firmed) Allergies, Adverse Reactions, Alerts Substance Reaction Severity Status yuan-type local Active anesthetics codeine Active Dilantin Active contrast media Active (iodine-based) TEGretol Active PHENobarbital Sodium Active Medications No data available for this section Results No data available for this section Immunizations No data available for this section Procedures Procedure Date Related Diagnosis Body Site Appendectomy Back fusion section Craniotomy Excision of gallbladder Hysterectomy Laminectomy Tonsillectomy Social History Social History Type Response Smoking Status Current every day smoker; Type: Cigarettes; Previous treatment: None; Ready to change: No; Concerns about tobacco use in household: No; Lives with someone who smokes; Cigarette Smoking Last 365 Days Yes; Reg Smoking Cessation Counseling Yes; Number of years: 42; Assessment and Plan No data available for this section
--- OUTSIDE RECORDS SUMMARY | 2018-03-08 16:37 | XMS REPORT | Summary of Care ---
Author Author [facility] Outpatient Imaging [facility] Outpatient Imaging [facility] Address Unknown Phone Unavailable Encounter KELSY Salvador(FIN) [id number] Date(s): 02/25/16 - 02/25/16 [facility] Outpatient Imaging [facility] [address] [facility], [address] [place] [phone] Discharge Disposition: Home or Self Care Attending [...]
--- OUTSIDE RECORDS SUMMARY | 2018-03-08 16:37 | XMS REPORT | Summary of Care ---
Author Author [facility] Organization [facility] Address Unknown Phone Unavailable Encounter KELSY Salvador(ANNA) [id number] Date(s): 03/13/15 - 03/13/15 [facility] [address] [place] [address]- Discharge Disposition: Home Attending Physician: Jeremy Mccabe MD Referring Physician: Jeremy Mccabe MD Vital Signs 1 2 3 Most recent to oldest [Reference Range]: 167.64 cm (03/12/15 9:46 AM) Height 153/53 mmHg *HI* (03/13/15 10:45 AM) 135/51 mmHg (03/13/15 10:30 AM) 134/53 mmHg (03/13/15 10:20 AM) Blood Pressure [90-140/60-90 mmHg] 15 BRMIN (03/13/15 10:45 AM) 20 BRMIN (03/13/15 10:30 AM) 24 BRMIN *HI* (03/13/15 10:20 AM) Respiratory Rate [14-20 BRMIN] 58 bpm *LOW* (03/13/15 8:43 AM) Peripheral Pulse Rate [60-100 bpm] 71.818 kg (03/12/15 9:46 AM) Weight 25.56 m2 (03/12/15 9:46 AM) Body Mass Index Problem List Condition Effective Dates Status Health Status Informant Abdominal Resolved pain(Confirmed) Back pain(Confirmed) Resolved COPD(Confirmed) Resolved Diabetes(Confirmed) Resolved GERD Resolved (gastroesophageal reflux disease)(Confirmed) Hypertension(Confirm Resolved ed) Migraine Resolved headache(Confirmed) Seizure(Confirmed) Resolved Thrombocytopenia(Con Resolved firmed) Allergies, Adverse Reactions, Alerts Substance Reaction Severity Status codeine Active contrast media Active (iodine-based) Dilantin Active PHENobarbital Sodium Active TEGretol Active Medications atorvastatin 40 mg oral tablet 40 mg=1 tab, PO, Bedtime, # 30 tab, 0 Refill(s) Start Date: 03/12/15 Status: Ordered Centrum Daily, 0 Refill(s) Start Date: 03/12/15 Status: Ordered doxycycline hyclate 100 mg oral tablet 100 mg=1 tab, PO, Q12H, # 20 tab, 0 Refill(s) Start Date: 03/12/15 Stop Date: 03/22/15 Status: Ordered MethylPREDNISolone Dose Pack 4 mg oral tablet See Instructions, PO, Daily, Use as directed on label., # 1 Pack, 0 Refill(s) Start Date: 03/12/15 Stop Date: 03/18/15 Status: Ordered ProAir HFA 90 mcg/inh inhalation aerosol with adapter 1 puff, INHALER, Q4H, PRN for wheezing, # 8.5 gm, 0 Refill(s) Start Date: 03/12/15 Status: Ordered Sodium Chloride 0.9% IV 1000 mL 1,000 mL, Rate: 25 ml/hr, Infuse over: 40 hr, Route: IV, Dosing Weight 71.818 kg , Total Volume: 1,000, Start date: 03/13/15 8:51:00, Duration: 30 day, Stop date : 04/12/15 8:50:00 Start Date: 03/13/15 Stop Date: 03/13/15 Status: Discontinued Symbicort 160/4.5 inhalation aerosol with adapter 2 puff, INHALER, BID, # 1 ea, 3 Refill(s) Start Date: 03/12/15 Status: Ordered Results No data available for this section [...]
--- OUTSIDE RECORDS SUMMARY | 2018-03-08 16:38 | XMS REPORT | Summary of Care ---
Author Author [facility] Organization [facility] Address Unknown Phone Unavailable Encounter HQ [place]) [id number] Date(s): 11/04/17 - 11/11/17 [facility] [address] [place] [address]- Encounter Diagnosis Atherosclerosis of [place] arteries of extremities with intermittent claudication , bilateral legs (Final) - Discharge Disposition: Home or Self Care Attending Physician: Bala Orosco MD Admitting Physician: Bala Orosco MD Referring Physician: Moreno Caballero MD Vital Signs 1 2 3 Most recent to oldest [Reference Range]: 165.1 cm (10/29/17 8:54 AM) Height 98.3 DegF (11/11/17 12:23 PM) 99.2 DegF *HI* (11/11/17 8:30 AM) 98.3 DegF (11/11/17 3:59 AM) Temperature Oral [96.4-99.1 DegF] 131/67 mmHg (11/11/17 12:23 PM) 151/69 mmHg *HI* (11/11/17 8:30 AM) 95/58 mmHg (11/11/17 3:59 AM) Blood Pressure [90-140/60-90 mmHg] 16 BRMIN (11/11/17 12:23 PM) 12 BRMIN *LOW* (11/11/17 10:16 AM) 18 BRMIN (11/10/17 7:27 PM) Respiratory Rate [14-20 BRMIN] 62 bpm (11/11/17 12:23 PM) 63 bpm (11/11/17 8:30 AM) 58 bpm *LOW* (11/11/17 3:59 AM) Peripheral Pulse Rate [60-100 bpm] 90 kg (10/29/17 8:54 AM) Weight 33.02 m2 (10/29/17 8:54 AM) Body Mass Index Problem List Condition Effective Dates Status Health Status Informant Abdominal Resolved pain(Confirmed) [place] Active convulsion(Confirmed ) Back pain(Confirmed) Active COPD(Confirmed) Active Diabetes(Confirmed) Active GERD Active (gastroesophageal reflux disease)(Confirmed) Hypertension(Confirm Active ed) Migraine Resolved headache(Confirmed) Thrombocytopenia(Con Resolved firmed) Allergies, Adverse Reactions, Alerts Substance Reaction Severity Status codeine Active Dilantin Active contrast media Active (iodine-based) TEGretol Active PHENobarbital Sodium Active Medications acetylcysteine oral solution (mg) 800 mg, 4 mL, Route: PO, Drug form: SOLN, ONCE, Dosing Weight 90, kg, Start date : 11/04/17 10:56:00 CDT, Stop date: 11/04/17 10:56:00 CDT Start Date: 11/04/17 Stop Date: 11/04/17 Status: Completed acetylcysteine oral solution (mg) 800 mg, 4 mL, Route: PO, Drug form: SOLN, PRE OP, Dosing Weight 92.727, kg, Star t date: 10/29/17 9:00:00 CDT, Duration: 1 day, Stop date: 10/30/17 8:59:00 CDT Start Date: 10/29/17 Stop Date: 10/30/17 Status: Completed albumin human (ANES) 250 mg Route: IV, Drug form: INJ, Start date: 11/04/17 15:45:00 CDT, Stop date: 8 16:45:00 CDT Start Date: 11/04/17 Stop Date: 11/04/17 Status: Completed albuterol-ipratropium 2.5-0.5 mg inhalation solution 3 mL, Route: NEB, Dosing Weight 90, kg, ONCE, STAT, Start date: 11/04/17 10:23:0 0 CDT, Stop date: 11/04/17 10:23:00 CDT Start Date: 11/04/17 Stop Date: 11/04/17 Status: Discontinued Ancef + sterile water 20 mL 2 gm, Route: IV, PRE OP, Dosing Weight 90, kg, Start date: 10/29/17 9:00:00 CDT, Duration: 1 day, Stop date: 10/30/17 8:59:00 CDT, ABX Indication: Surgical Prop hylaxis Notes: (Same As: Danii Owens) MEDICATION WASTE Product Size: 1000 mgP roduct Wasted: ___ mg Start Date: 10/29/17 Stop Date: 10/30/17 Status: Completed ANES albuterol 0.083% inhalation solution 2.49 mg, Route: NEB, Q20Min, Dosing Weight 90, kg, PRN Wheezing, Priority: STAT, Start date: 11/04/17 16:56:00 CDT, Duration: 30 day, Stop date: 12/04/17 16:55: 00 CDT Start Date: 11/04/17 Stop Date: 11/04/17 Status: Discontinued ANES diphenhydrAMINE 12.5 mg, Route: IVP, Drug form: INJ, Q6H, Dosing Weight 90, kg, PRN Itching, Sta rt date: 11/04/17 16:56:00 CDT, Duration: 30 day, Stop date: 12/04/17 16:55:00 C DT Start Date: 11/04/17 Stop Date: 11/04/17 Status: Discontinued ANES esmolol 10 mg, Route: IVP, Q5Min, Dosing Weight 90, kg, PRN Other -See Comment, Start da te: 11/04/17 16:56:00 CDT, Duration: 5 doses or times, Stop date: Limited # of t imes Start Date: 11/04/17 Stop Date: 11/04/17 Status: Discontinued ANES fentaNYL 50 microgram, Route: IVP, Q5Min, Dosing Weight 90, kg, PRN Pain Score 7-10, Prio rity: Routine, Start date: 11/04/17 16:56:00 CDT, Duration: 2 doses or times, St op date: Limited # of times Start Date: 11/04/17 Stop Date: 11/04/17 Status: Completed ANES fentaNYL 25 microgram, Route: IVP, Q5Min, Dosing Weight 90, kg, PRN Pain Score 4-6, Prior ity: Routine, Start date: 11/04/17 16:56:00 CDT, Duration: 4 doses or times, Sto p date: Limited # of times Start Date: 11/04/17 Stop Date: 11/04/17 Status: Discontinued ANES flumazenil 0.2 mg, Route: IVP, PRN, Dosing Weight 90, kg, PRN Benzodiazepine Reversal, Init ial dose, Start date: 11/04/17 16:56:00 CDT, Duration: 30 day, Stop date: 16:55:00 CDT Start Date: 11/04/17 Stop Date: 11/04/17 Status: Discontinued ANES hydrALAZINE 10 mg, Route: IVP, Q20Min, Dosing Weight 90, kg, PRN Elevated BP, Start date: 16:56:00 CDT, Duration: 2 doses or times, Stop date: Limited # of times Start Date: 11/04/17 Stop Date: 11/04/17 Status: Discontinued ANES labetalol 10 mg, Route: IVP, Q5Min, Dosing Weight 90, kg, PRN Elevated BP, Start date: 16:56:00 CDT, Duration: 5 doses or times, Stop date: Limited # of times Start Date: 11/04/17 Stop Date: 11/04/17 Status: Discontinued ANES meperidine 12.5 mg, Route: IVP, Q30Min, Dosing Weight 90, kg, PRN Other -See Comment, For s anthony, Start date: 11/04/17 16:56:00 CDT, Duration: 2 doses or times, Stop da te: Limited # of times Start Date: 11/04/17 Stop Date: 11/04/17 Status: Discontinued ANES naloxone 0.4 mg, Route: IVP, Q2MIN, Dosing Weight 90, kg, PRN Narcotic Reversal, Start da te: 11/04/17 16:56:00 CDT, Duration: 8 doses or times, Stop date: Limited # of t imes Start Date: 11/04/17 Stop Date: 11/04/17 Status: Discontinued ANES ondansetron 4 mg, Route: IVP, ONCE, Dosing Weight 90, kg, PRN Nausea & Vomiting, Start date: 11/04/17 16:56:00 CDT Start Date: 11/04/17 Stop Date: 11/04/17 Status: Discontinued ANES promethazine 6.25 mg, Route: IVPB, ONCE, Dosing Weight 90, kg, PRN Nausea & Vomiting, Start date: 11/04/17 16:56:00 CDT Start Date: 11/04/17 Stop Date: 11/04/17 Status: Discontinued aspirin 81 mg tablet, chewable 81 mg, 1 tab, Route: PO, Drug form: CHEWTAB, Daily, Dosing Weight 90, kg, Start date: 11/04/17 18:47:00 CDT, Duration: 30 day, Stop date: 12/04/17 9:00:00 CDT Notes: Take with food. Start Date: 11/04/17 Stop Date: 11/11/17 Status: Discontinued aspirin 81 mg tablet, chewable 81 mg=1 tab, PO, Daily, 0 Refill(s) Start Date: 11/11/17 Status: Ordered atorvastatin 80 mg, 2 tab, Route: PO, Drug form: TAB, Bedtime, Dosing Weight 90, kg, Start da te: 11/04/17 21:00:00 CDT, Duration: 30 day, Stop date: 12/03/17 21:00:00 CDT Notes: (Same as: Lipitor) Start Date: 11/04/17 Stop Date: 11/11/17 Status: Discontinued atorvastatin 40 mg oral tablet 80 mg=2 tab, PO, Bedtime, 0 Refill(s) Start Date: 11/11/17 Status: Ordered ceFAZolin (ANES) Route: IV, Drug form: INJ, ONCE, Stop date: 11/04/17 15:32:00 CDT Start Date: 11/04/17 Stop Date: 11/04/17 Status: Completed cefepime + Sodium Chloride 0.9% IV 100 mL 1 gm, Route: IVPB, [id number], Dosing Weight 90, kg, Start date: 11/10/17 11:00:00 CDT, Duration: 30 day, Stop date: 12/09/17 11:00:00 CDT, ABX Indication: Urinary Tract Infection Notes: (Same As: Maxipime) MEDICATION WASTE Product Size: 1000 mgProduc t Wasted: ___ mg Start Date: 11/10/17 Stop Date: 11/11/17 Status: Discontinued Cipro 250 mg oral tablet 250 mg=1 tab, PO, Q24H, for UTI, X 5 day, # 5 tab, 0 Refill(s) Start Date: 11/11/17 Stop Date: 11/16/17 Status: Ordered Dextrose 50% Syringe 25 mL, Route: IVP, Dosing Weight 90, kg, PRN, PRN Blood Glucose Results, Start d ate: 11/04/17 22:05:00 CDT, Duration: 30 day, Stop date: 12/04/17 22:04:00 CDT Start Date: 11/04/17 Stop Date: 11/04/17 Status: Deleted Dextrose 50% Syringe 50 mL, Route: IVP, Dosing Weight 90, kg, PRN, PRN Blood Glucose Results, Start d ate: 11/04/17 22:05:00 CDT, Duration: 30 day, Stop date: 12/04/17 22:04:00 CDT Start Date: 11/04/17 Stop Date: 11/04/17 Status: Deleted Dextrose 50% Syringe 25 gm, 50 mL, Route: IVP, Drug Form: INJ, Dosing Weight 90, kg, PRN, PRN Blood G lucose Results, Start date: 11/04/17 18:02:00 CDT, Duration: 30 day, Stop date: 12/04/17 18:01:00 CDT Start Date: 11/04/17 Stop Date: 11/11/17 Status: Discontinued Dextrose 50% Syringe 12.5 gm, 25 mL, Route: IVP, Drug Form: INJ, Dosing Weight 90, kg, PRN, PRN Blood Glucose Results, Start date: 11/04/17 18:02:00 CDT, Duration: 30 day, Stop date: 12/04/17 18:01:00 CDT Start Date: 11/04/17 Stop Date: 11/11/17 Status: Discontinued Dilaudid 0.5 mg, Route: IV, Q5Min, Dosing Weight 90, kg, PRN Pain Score 6-10, Start date: 11/04/17 17:59:00 CDT, Duration: 2 doses or times, Stop date: Limited # of times Start Date: 11/04/17 Stop Date: 11/04/17 Status: Completed diphenhydrAMINE (ANES) Route: IV, Drug form: INJ, ONCE, Stop date: 11/04/17 15:22:00 CDT Start Date: 11/04/17 Stop Date: 11/04/17 Status: Completed Dulcolax Laxative 10 mg, 1 supp, Route: FL, Drug form: SUPP, Daily, Dosing Weight 90, kg, PRN Cons tipation, Start date: 11/09/17 8:37:00 CDT, Duration: 30 day, Stop date: 8 8:36:00 CDT Notes: (Same As: Dulcolax, [place]isco-Lax) Start Date: 11/09/17 Stop Date: 11/11/17 Status: Discontinued DuoNeb inhalation solution 3 mL, NEB, PRN, PRN Respiratory Pathway, 0 Refill(s) Start Date: 11/11/17 Status: Ordered DuoNeb inhalation solution 3 ml, Route: NEB, Drug Form: SOLN, Dosing Weight 90, kg, PRN, PRN Respiratory Pa thway, Start date: 11/04/17 18:02:00 CDT, Duration: 30 day, Stop date: 12/04/17 18:01:00 CDT Notes: (Same as: Duoneb) Start Date: 11/04/17 Stop Date: 11/11/17 Status: Discontinued famotidine (ANES) Route: IV, Drug form: INJ, ONCE, Stop date: 11/04/17 15:22:00 CDT Start Date: 11/04/17 Stop Date: 11/04/17 Status: Completed fentaNYL (ANES) Route: IV, Drug form: INJ, ONCE, Stop date: 11/04/17 15:22:00 CDT Start Date: 11/04/17 Stop Date: 11/04/17 Status: Completed glucagon 1 mg, Route: IM, PRN, Dosing Weight 90, kg, PRN Blood Glucose Results, Start natasha e: 11/04/17 22:05:00 CDT, Duration: 30 day, Stop date: 12/04/17 22:04:00 CDT Start Date: 11/04/17 Stop Date: 11/04/17 Status: Deleted glucagon 1 mg, Route: IM, Drug form: PDR/INJ, PRN, Dosing Weight 90, kg, PRN Blood Glucos e Results, Start date: 11/04/17 18:02:00 CDT, Duration: 30 day, Stop date: 12/04 18:01:00 CDT Start Date: 11/04/17 Stop Date: 11/11/17 Status: Discontinued glycopyrrolate (ANES) Route: IV, Drug form: INJ, ONCE, Stop date: 11/04/17 16:43:00 CDT Start Date: 11/04/17 Stop Date: 11/04/17 Status: Completed heparin (ANES) Route: IV, Drug form: INJ, ONCE, Stop date: 11/04/17 15:52:00 CDT Start Date: 11/04/17 Stop Date: 11/04/17 Status: Completed hydrALAZINE 10 mg, 0.5 mL, Route: IV, Drug form: INJ, Q4H, Dosing Weight 90, kg, PRN Hyperte nsion, Start date: 11/04/17 18:01:00 CDT, Duration: 30 day, Stop date: 12/04/17 18:00:00 CDT Notes: (Same as: Apresoline)Push over 5 minutes Start Date: 11/04/17 Stop Date: 11/11/17 Status: Discontinued hydrALAZINE (ANES) Route: IV, Drug form: INJ, ONCE, Stop date: 11/04/17 16:43:00 CDT Start Date: 11/04/17 Stop Date: 11/04/17 Status: Completed hydrALAZINE 10 mg oral tablet 10 mg, 1 tab, Route: PO, Drug form: TAB, TID, Dosing Weight 90, kg, Start date: 11/07/17 17:30:00 CDT, Duration: 30 day, Stop date: 12/07/17 16:00:00 CDT Notes: (Same as: Apresoline) May interfere w/enteral feedings.Take With Food Start Date: 11/07/17 Stop Date: 11/09/17 Status: Discontinued hydrALAZINE 25 mg oral tablet 25 mg, 1 tab, Route: PO, Drug form: TAB, TID, Dosing Weight 90, kg, Start date: 11/09/17 17:00:00 CDT, Duration: 30 day, Stop date: 12/09/17 13:00:00 CDT Notes: (Same as: Apresoline) May interfere w/enteral feedings Take With Food. Start Date: 11/09/17 Stop Date: 11/11/17 Status: Discontinued hydrALAZINE 25 mg oral tablet 25 mg, Route: PO, Drug form: TAB, TID, Dosing Weight 90, kg, Start date: 8 9:00:00 CDT, Duration: 30 day, Stop date: 12/07/17 17:00:00 CDT Start Date: 11/08/17 Stop Date: 11/07/17 Status: Canceled hydrALAZINE 25 mg oral tablet 25 mg=1 tab, PO, TID, 0 Refill(s) Start Date: 11/11/17 Status: Ordered hydrocortisone (ANES) Route: IV, Drug form: INJ, ONCE, Stop date: 11/04/17 15:22:00 CDT Start Date: 11/04/17 Stop Date: 11/04/17 Status: Completed insulin glargine 100 units/mL subcutaneous solution 10 unit, SUB-Q, Daily, 0 Refill(s) Start Date: 11/11/17 Status: Ordered insulin glargine 100 units/mL subcutaneous solution 10 unit, 0.1 mL, Route: SUB-Q, Drug form: SOLN, Daily, Dosing Weight 90, kg, Sta rt date: 11/05/17 9:00:00 CDT, Duration: 30 day, Stop date: 12/04/17 9:00:00 CDT Notes: (Same as: Lantus)Do not hold insulin without contacting prescriberWASTE: F/P - Black; E - [facility] "single patient use only" Start Date: 11/05/17 Stop Date: 11/11/17 Status: Discontinued insulin lispro 4 unit, 0.04 mL, Route: SUB-Q, Drug form: SOLN, Bedtime, Dosing Weight 90, kg, P RN Blood Glucose Results, Start date: 11/04/17 22:05:00 CDT, Duration: 30 day, S top date: 12/04/17 22:04:00 CDT Notes: (Same as: Humalog ) Roll in palms of hands gently; Do not shake `vigorou sly. "Single Patient Use Only " WASTE: F/P - Black; E - [facility] [address] St able for 28 days at room temperature.Expires in days from Da te Start Date: 11/04/17 Stop Date: 11/11/17 Status: Discontinued insulin lispro 3 unit, 0.03 mL, Route: SUB-Q, Drug form: SOLN, Bedtime, Dosing Weight 90, kg, P RN Blood Glucose Results, Start date: 11/04/17 22:05:00 CDT, Duration: 30 day, S top date: 12/04/17 22:04:00 CDT Notes: (Same as: Humalog ) Roll in palms of hands gently; Do not shake `vigorou sly. "Single Patient Use Only " WASTE: F/P - Black; E - [facility] [address] [facility] [address] able for 28 days at room temperature.Expires in days from Da te Start Date: 11/04/17 Stop Date: 11/11/17 Status: Discontinued insulin lispro 2 unit, 0.02 mL, Route: SUB-Q, Drug form: SOLN, Bedtime, Dosing Weight 90, kg, P RN Blood Glucose Results, Start date: 11/04/17 22:05:00 CDT, Duration: 30 day, S top date: 12/04/17 22:04:00 CDT Notes: (Same as: Humalog ) Roll in palms of hands gently; Do not shake `vigorou sly. "Single Patient Use Only " WASTE: F/P - Black; E - [facility] [address] [facility] [address] able for 28 days at room temperature.Expires in days from Da te Start Date: 11/04/17 Stop Date: 11/11/17 Status: Discontinued insulin lispro 1 unit, 0.01 mL, Route: SUB-Q, Drug form: SOLN, Bedtime, Dosing Weight 90, kg, P RN Blood Glucose Results, Start date: 11/04/17 22:05:00 CDT, Duration: 30 day, S top date: 12/04/17 22:04:00 CDT Notes: (Same as: Humalog ) Roll in palms of hands gently; Do not shake `vigorou sly. "Single Patient Use Only " WASTE: F/P - Black; E - [facility] [address] able for 28 days at room temperature.Expires in days from Da te Start Date: 11/04/17 Stop Date: 11/11/17 Status: Discontinued insulin lispro 1 unit, 0.01 mL, Route: SUB-Q, Drug form: SOLN, TID-Before Meals, Dosing Weight 90, kg, PRN Blood Glucose Results, Start date: 11/04/17 18:02:00 CDT, Duration: 30 day, Stop date: 12/04/17 18:01:00 CDT Notes: (Same as: Humalog ) Roll in palms of hands gently; Do not shake `vigorou sly. "Single Patient Use Only " WASTE: F/P - Black; E - [facility] [address] [facility] [address] able for 28 days at room temperature.Expires in days from Da te Start Date: 11/04/17 Stop Date: 11/11/17 Status: Discontinued insulin lispro 2 unit, 0.02 mL, Route: SUB-Q, Drug form: SOLN, TID-Before Meals, Dosing Weight 90, kg, PRN Blood Glucose Results, Start date: 11/04/17 18:02:00 CDT, Duration: 30 day, Stop date: 12/04/17 18:01:00 CDT Notes: (Same as: Humalog ) Roll in palms of hands gently; Do not shake `vigorou sly. "Single Patient Use Only " WASTE: F/P - Black; E - [facility] [address] [facility] [address] able for 28 days at room temperature.Expires in days from Da te Start Date: 11/04/17 Stop Date: 11/11/17 Status: Discontinued insulin lispro 5 unit, 0.05 mL, Route: SUB-Q, Drug form: SOLN, TID-Before Meals, Dosing Weight 90, kg, PRN Blood Glucose Results, Start date: 11/04/17 18:02:00 CDT, Duration: 30 day, Stop date: 12/04/17 18:01:00 CDT Notes: (Same as: Humalog ) Roll in palms of hands gently; Do not shake `vigorou sly. "Single Patient Use Only " WASTE: F/P - Black; E - [facility] [address] [facility] [address] able for 28 days at room temperature.Expires in days from Da te Start Date: 11/04/17 Stop Date: 11/11/17 Status: Discontinued insulin lispro 3 unit, 0.03 mL, Route: SUB-Q, Drug form: SOLN, TID-Before Meals, Dosing Weight 90, kg, PRN Blood Glucose Results, Start date: 11/04/17 18:02:00 CDT, Duration: 30 day, Stop date: 12/04/17 18:01:00 CDT Notes: (Same as: Humalog ) Roll in palms of hands gently; Do not shake `vigorou sly. "Single Patient Use Only " WASTE: F/P - Black; E - [facility] [address] [facility] [address] able for 28 days at room temperature.Expires in days from Da te Start Date: 11/04/17 Stop Date: 11/11/17 Status: Discontinued insulin lispro 4 unit, 0.04 mL, Route: SUB-Q, Drug form: SOLN, TID-Before Meals, Dosing Weight 90, kg, PRN Blood Glucose Results, Start date: 11/04/17 18:02:00 CDT, Duration: 30 day, Stop date: 12/04/17 18:01:00 CDT Notes: (Same as: Humalog ) Roll in palms of hands gently; Do not shake `vigorou sly. "Single Patient Use Only " WASTE: F/P - Black; E - [facility] [address] able for 28 days at room temperature.Expires in days from Da te Start Date: 11/04/17 Stop Date: 11/11/17 Status: Discontinued Insulin regular 4 unit, Route: IV, ONCE, Dosing Weight 90, kg, Start date: 11/04/17 10:32:00 CDT , Stop date: 11/04/17 10:32:00 CDT Start Date: 11/04/17 Stop Date: 11/04/17 Status: Completed labetalol 10 mg, 2 mL, Route: IV, Drug form: INJ, Q6H, Dosing Weight 90, kg, PRN Hypertens ion, Start date: 11/04/17 18:01:00 CDT, Duration: 30 day, Stop date: 12/04/17 18 :00:00 CDT Notes: (Same as: Normodyne, Trandate)Push over 2 minutes Give bolus over 2-3 mi nutes. Start Date: 11/04/17 Stop Date: 11/11/17 Status: Discontinued Lactated Ringers Injection IV (ANES) 1000 mL Route: IV, Total Volume: 1,000, Start date: 11/04/17 13:49:00 CDT, Stop date: 14:49:00 CDT Start Date: 11/04/17 Stop Date: 11/04/17 Status: Completed Lactated Ringers Injection IV 1000 mL 1,000 mL, Rate: 125 ml/hr, Infuse over: 8 hr, Route: IV, Dosing Weight 90 kg, To brii Volume: 1,000, Start date: 11/04/17 16:56:00 CDT, Duration: 30 day, Stop natasha e: 12/04/17 16:55:00 CDT, 2.06, m2 Start Date: 11/04/17 Stop Date: 11/04/17 Status: Discontinued Lactated Ringers Injection IV 1000 mL 1,000 mL, Rate: 25 ml/hr, Infuse over: 40 hr, Route: IV, Dosing Weight 90 kg, To brii Volume: 1,000, Start date: 11/04/17 10:23:00 CDT, Duration: 30 day, Stop natasha e: 12/04/17 10:22:00 CDT, 2.06, m2 Start Date: 11/04/17 Stop Date: 11/04/17 Status: Discontinued lidocaine (ANES) Route: IV, Drug form: INJ, ONCE, Stop date: 11/04/17 15:32:00 CDT Start Date: 11/04/17 Stop Date: 11/04/17 Status: Completed magnesium citrate 1.745 g/30 mL oral liquid 300 ml, Route: PO, Drug Form: LIQ, Dosing Weight 90, kg, ONCE, Start date: 11/09 8:37:00 CDT, Stop date: 11/09/17 8:37:00 CDT Notes: (Same as: Citrate of Magnesia)Concentration: 1.745 gm / 30 mL Start Date: 11/09/17 Stop Date: 11/09/17 Status: Completed melatonin 3 mg oral tablet 3 mg, 1 tab, Route: PO, Drug Form: TAB, Dosing Weight 90, kg, Bedtime, Start natasha e: 11/06/17 21:00:00 CDT, Duration: 30 day, Stop date: 12/05/17 21:00:00 CDT Notes: (Same as: Melatonin) Start Date: 11/06/17 Stop Date: 11/11/17 Status: Discontinued metoclopramide (ANES) Route: IV, Drug form: INJ, ONCE, Stop date: 11/04/17 15:22:00 CDT Start Date: 11/04/17 Stop Date: 11/04/17 Status: Completed metoprolol tartrate 25 mg, 1 tab, Route: PO, Drug form: TAB, Q12H, Dosing Weight 90, kg, Start date: 11/07/17 21:00:00 CDT, Duration: 30 day, Stop date: 12/07/17 9:00:00 CDT Notes: (Same as: Lopressor) Start Date: 11/07/17 Stop Date: 11/11/17 Status: Discontinued metoprolol tartrate 25 mg oral tablet 25 mg=1 tab, PO, Q12H, 0 Refill(s) Start Date: 11/11/17 Status: Ordered midazolam (ANES) Route: IV, Drug form: SOLN, ONCE, Stop date: 11/04/17 15:22:00 CDT Start Date: 11/04/17 Stop Date: 11/04/17 Status: Completed morphine Sulfate 6 mg, 3 mL, Route: PO, Drug form: SOLN, Q6H, Dosing Weight 90, kg, PRN Pain Scor e 7-10, Start date: 11/08/17 23:36:00 CDT, Stop date: 12/08/17 23:35:00 CDT Notes: (Same as:MORPhine Sulfate) Start Date: 11/08/17 Stop Date: 11/11/17 Status: Discontinued morphine Sulfate 4 mg, 4 mL, Route: IVP, Drug form: INJ, Q3H, Dosing Weight 90, kg, PRN Pain Scor e 1-3, Start date: 11/04/17 17:16:00 CDT, Duration: 30 day, Stop date: 12/04/17 17:15:00 CDT Notes: (Same as: Astramorph-PF) Start Date: 11/04/17 Stop Date: 11/05/17 Status: Discontinued morphine Sulfate 12 mg, 6 mL, Route: PO, Drug form: SOLN, Q6H, Dosing Weight 90, kg, PRN Pain Sco re 1-3, Start date: 11/05/17 8:03:00 CDT, Duration: 30 day, Stop date: 12/05/17 8:02:00 CDT Notes: (Same as:MORPhine Sulfate) Start Date: 11/05/17 Stop Date: 11/11/17 Status: Discontinued neostigmine (ANES) Route: IV, Drug form: INJ, ONCE, Stop date: 11/04/17 16:43:00 CDT Start Date: 11/04/17 Stop Date: 11/04/17 Status: Completed norepinephrine (ANES) Route: IV, Drug form: INJ, ONCE, Stop date: 11/04/17 15:37:00 CDT Start Date: 11/04/17 Stop Date: 11/04/17 Status: Completed normal saline 0.9% IV 1,000 mL 1,000 mL, Rate: 150 ml/hr, Infuse over: 6.7 hr, Route: IV, Dosing Weight 90 kg, Total Volume: 1,000, Start date: 10/29/17 8:54:00 CDT, Duration: 30 day, Stop da te: 11/28/17 8:53:00 CDT, 2.06, m2 Start Date: 10/29/17 Stop Date: 11/04/17 Status: Discontinued normal saline 0.9% IV 1000 mL 1,000 mL, Rate: 100 ml/hr, Infuse over: 10 hr, Route: IV, Dosing Weight 90 kg, T otal Volume: 1,000, Start date: 11/04/17 17:16:00 CDT, Duration: 30 day, Stop da te: 12/04/17 17:15:00 CDT, 2.06, m2 Start Date: 11/04/17 Stop Date: 11/04/17 Status: Discontinued omeprazole 40 mg, Route: PO, Drug form: DRC, Daily, Dosing Weight 90, kg, Start date: 11/05 9:00:00 CDT, Duration: 30 day, Stop date: 12/04/17 9:00:00 CDT Start Date: 11/05/17 Stop Date: 11/04/17 Status: Deleted ondansetron 8 mg, Route: IV, ONCE, Dosing Weight 90, kg, Priority: STAT, Start date: 8 9:51:00 CDT, Stop date: 11/05/17 9:51:00 CDT Start Date: 11/05/17 Stop Date: 11/05/17 Status: Completed pantoprazole 40 mg oral enteric coated tablet 40 mg=1 tab, PO, Daily, 0 Refill(s) Start Date: 11/11/17 Status: Ordered propofol (ANES) Route: IV, Drug form: INJ, ONCE, Stop date: 11/04/17 15:32:00 CDT Start Date: 11/04/17 Stop Date: 11/04/17 Status: Completed protamine (ANES) 10 mg Route: IV, Drug form: INJ, Start date: 11/04/17 16:03:00 CDT, Stop date: 8 17:03:00 CDT Start Date: 11/04/17 Stop Date: 11/04/17 Status: Completed Protonix 40 mg, 1 tab, Route: PO, Drug form: ECTAB, Daily, Start date: 11/05/17 9:00:00 C DT, Duration: 30 day, Stop date: 12/04/17 9:00:00 CDT Notes: Tablet should not be chewed or crushed.(Same as: Protonix) Start Date: 11/05/17 Stop Date: 11/11/17 Status: Discontinued rocuronium (ANES) Route: IV, Drug form: INJ, ONCE, Stop date: 11/04/17 15:32:00 CDT Start Date: 11/04/17 Stop Date: 11/04/17 Status: Completed Sodium Chloride 0.9% IV (ANES) 1000 mL Route: IV, Total Volume: 1,000, Start date: 11/04/17 14:20:00 CDT, Stop date: 15:20:00 CDT Start Date: 11/04/17 Stop Date: 11/04/17 Status: Completed Symbicort 160/4.5 inhalation aerosol with adapter 2 inhalation, Route: INHALATION, Drug Form: AERO/A, Dosing Weight 90, kg, RBID, Start date: 11/06/17 17:15:00 CDT, Duration: 30 day, Stop date: 12/06/17 8:00:00 CDT Notes: (Same as: Symbicort)WASTE: Aerosol - Return to Pharmacy Start Date: 11/06/17 Stop Date: 11/11/17 Status: Discontinued Symbicort 160/4.5 inhalation aerosol with adapter 2 inhalation, INHALATION, RBID, 0 Refill(s) Start Date: 11/11/17 Status: Ordered tramadol 50 mg oral tablet 50 mg, 1 tab, Route: PO, Drug form: TAB, Q12H, Dosing Weight 90, kg, PRN Pain Sc ore 1-3, Start date: 11/06/17 10:54:00 CDT, Duration: 30 day, Stop date: 8 10:53:00 CDT Notes: Not to exceed 400mg/day. (Same As: Ultram) Start Date: 11/06/17 Stop Date: 11/11/17 Status: Discontinued Tylenol 650 mg, 2 tab, Route: PO, Drug form: TAB, Q6H, Dosing Weight 90, kg, PRN For Tem p > 100.4 F, Start date: 11/06/17 15:35:00 CDT, Duration: 30 day, Stop date: 12/06/17 15:34:00 CDT Notes: Do not exceed 4 gm/day. (Same as: Tylenol) Start Date: 11/06/17 Stop Date: 11/11/17 Status: Discontinued Unknown Home Medication See Instructions, 11 units SQ at bedtime, Refill(s) 0 Start Date: 10/29/17 Stop Date: 11/11/17 Status: Discontinued Valium 2 mg, 1 tab, Route: PO, Drug form: TAB, BID, Dosing Weight 90, kg, PRN as needed for anxiety, Priority: STAT, Start date: 11/05/17 9:51:00 CDT, Duration: 7 day, Stop date: 11/12/17 9:50:00 CDT Notes: (Same as: Valium) Start Date: 11/05/17 Stop Date: 11/11/17 Status: Discontinued vancomycin (ANES) 1000 mg Route: IV, Drug form: INJ, Start date: 11/04/17 13:49:00 CDT, Stop date: 8 14:49:00 CDT Start Date: 11/04/17 Stop Date: 11/04/17 Status: Completed vancomycin + Dextrose 5% in Water IV 250 mL 1 gm, Route: IVPB, Drug form: INJ, PRE OP, Dosing Weight 90, kg, Start date: 9:00:00 CDT, Duration: 1 day, Stop date: 10/30/17 8:59:00 CDT, ABX Indicat ion: Surgical Prophylaxis Notes: TIME CRITICAL MEDICATION(Same As: Vancocin)Infusion rate< 1000 mg: infuse over 1 [id number] - 1500 mg: infuse over 1.5 [id number] - 2000 mg: infuse over 2 hours> 2001 mg: infuse over 2.5 hoursFor adult patients only: Round to nearest 250 mg per Medical Staff approval MEDICATION WASTE Product Size: 1000 mgProduct Wasted: ___ mg Start Date: 10/29/17 Stop Date: 10/30/17 Status: Completed vancomycin + Dextrose 5% in Water IV 250 mL 750 mg, Route: IVPB, ONCE, Dosing Weight 90, kg, Start date: 11/08/17 23:48:00 C DT, Stop date: 11/08/17 23:48:00 CDT, ABX Indication: Bacteremia Notes: TIME CRITICAL MEDICATION(Same As: Vancocin)Infusion rate< 1000 mg: infuse over 1 [id number] - 1500 mg: infuse over 1.5 [id number] - 2000 mg: infuse over 2 hours> 2001 mg: infuse over 2.5 hoursFor adult patients only: Round to nearest 250 mg per Medical Staff approval MEDICATION WASTE Product Size: 1000 mgProduct Wasted: ___ mg Start Date: 11/08/17 Stop Date: 11/09/17 Status: Completed Zofran 4 mg, 1 tab, Route: PO, Drug form: TAB, Q8H, Dosing Weight 90, kg, PRN Nausea, S tart date: 11/10/17 9:24:00 CDT, Duration: 30 day, Stop date: 12/10/17 9:23:00 C DT Notes: (Same as: Zofran) Start Date: 11/10/17 Stop Date: 11/11/17 Status: Discontinued Results BLOOD BANK RESULTS 1 2 3 Most recent to oldest [Reference Range]: B POS *Unknown* (10/29/17 9:27 AM) ABO/Rh Negative (10/29/17 9:27 AM) Antibody Scrn Product available (11/04/17 10:05 AM) Platelet product Product available 1 (11/04/17 10:13 AM) RBC product 1Result Comment: 11/04/2017 10:35 NOEL called to rahel 11/04/2017 10:35 ELECTROLYTES 1 2 3 Most recent to oldest [Reference Range]: 142 mEq/L (11/08/17 7:39 AM) 145 mEq/L (11/07/17 4:54 AM) 140 mEq/L (11/06/17 7:36 AM) Sodium Lvl [135-145 mEq/L] 4.1 mEq/L (11/08/17 7:39 AM) 4.2 mEq/L (11/07/17 4:54 AM) 4.1 mEq/L (11/06/17 7:36 AM) Potassium Lvl [3.5-5.1 mEq/L] 109 mEq/L (11/08/17 7:39 AM) 112 mEq/L *HI* (11/07/17 4:54 AM) 109 mEq/L (11/06/17 7:36 AM) Chloride Lvl [95-109 mEq/L] 24 mEq/L (11/08/17 7:39 AM) 23 mEq/L *LOW* (11/07/17 4:54 AM) 22 mEq/L *LOW* (11/06/17 7:36 AM) CO2 [24-32 mEq/L] 13.1 mEq/L (11/08/17 7:39 AM) 14.2 mEq/L (11/07/17 4:54 AM) 13.1 mEq/L (11/06/17 7:36 AM) AGAP [10.0-20.0 mEq/L] CHEM PANEL 1 2 3 Most recent to oldest [Reference Range]: 2.18 mg/dL *HI* (11/08/17 7:39 AM) 2.61 mg/dL *HI* (11/07/17 4:54 AM) 2.82 mg/dL *HI* (11/06/17 7:36 AM) Creatinine Lvl [0.50-1.40 mg/dL] 22 mL/min/1.73m2 1 *NA* (11/08/17 7:39 AM) 18 mL/min/1.73m2 2 *NA* (11/07/17 4:54 AM) 16 mL/min/1.73m2 3 *NA* (11/06/17 7:36 AM) eGFR 41 mg/dL *HI* (11/08/17 7:39 AM) 41 mg/dL *HI* (11/07/17 4:54 AM) 40 mg/dL *HI* (11/06/17 7:36 AM) BUN [7-22 mg/dL] 184 mg/dL *HI* (11/08/17 7:39 AM) 197 mg/dL *HI* (11/07/17 4:54 AM) 182 mg/dL *HI* (11/06/17 7:36 AM) Glucose Lvl [70-99 mg/dL] 8.7 mg/dL (11/08/17 7:39 AM) 8.8 mg/dL (11/07/17 4:54 AM) 8.0 mg/dL *LOW* (11/06/17 7:36 AM) Calcium Lvl [8.5-10.5 mg/dL] 3.4 mg/dL (11/06/17 7:36 AM) Phosphorus [2.5-4.5 mg/dL] 2.2 mg/dL (11/06/17 7:36 AM) Magnesium Lvl [1.8-2.4 mg/dL] 0.86 ng/mL *HI* (11/06/17 4:13 PM) Procalcitonin Lvl [0.00-0.10 ng/mL] 1Result Comment: The eGFR is calculated using [...] be mul tiplied by the estimated BMI. 2Result Comment: The eGFR is calculated using the [...] be mul tiplied by the estimated BMI. 3Result Comment: The eGFR is calculated using the [...] be mul tiplied by the estimated BMI. URINE AND STOOL 1 2 3 Most recent to oldest [Reference Range]: Slight Cloudy (11/06/17 1:00 PM) UA Turbidity [Clear] Yellow *NA* (11/06/17 1:00 PM) UA Color [Yellow] 5.5 (11/06/17 1:00 PM) UA pH [5.0-8.0] >=1.030 *ABN* (11/06/17 1:00 PM) UA Spec Grav [<=1.030] Negative (11/06/17 1:00 PM) UA Glucose [Negative] Moderate *ABN* (11/06/17 1:00 PM) UA Blood [Negative] Negative *NA* (11/06/17 1:00 PM) UA Ketones [Negative] >=300 mg/dL *ABN* (11/06/17 1:00 PM) UA Protein [Negative mg/dL] 0.2 EU/dL (11/06/17 1:00 PM) UA Urobilinogen [0.1-1.0 EU/dL] Negative *NA* (11/06/17 1:00 PM) UA Bili [Negative] Negative (11/06/17 1:00 PM) UA Leuk Est [Negative] Negative (11/06/17 1:00 PM) UA Nitrite [Negative] 6-10 /HPF *ABN* (11/06/17 1:00 PM) UA WBC [0-5 /HPF] 3-5 /HPF *ABN* (11/06/17 1:00 PM) UA RBC [0-2 /HPF] Moderate /HPF *ABN* (11/06/17 1:00 PM) UA Bacteria [None Seen /HPF] Moderate /LPF *ABN* (11/06/17 1:00 PM) UA Sq Epi [Few /LPF] Many /LPF *ABN* (11/06/17 1:00 PM) UA Mucus [None Seen /LPF] Performed (11/06/17 1:00 PM) Micro? HEMATOLOGY 1 2 3 Most recent to oldest [Reference Range]: 9.8 K/CMM (11/09/17 7:18 AM) 10.6 K/CMM *HI* (11/08/17 7:39 AM) 11.0 K/CMM *HI* (11/07/17 4:54 AM) WBC [3.7-10.4 K/CMM] 2.95 M/CMM *LOW* (11/09/17:18 AM) 2.85 M/CMM *LOW* (11/08/17 7:39 AM) 3.00 M/CMM *LOW* (11/07/17 4:54 AM) RBC [4.20-5.40 M/CMM] 8.3 g/dL *LOW* (11/09/17 7:18 AM) 8.1 g/dL *LOW* (11/08/17 7:39 AM) 8.4 g/dL *LOW* (11/07/17 4:54 AM) Hgb [12.0-16.0 g/dL] 24.9 % *LOW* (11/09/17 7:18 AM) 24.1 % *LOW* (11/08/17 7:39 AM) 25.4 % *LOW* (11/07/17 4:54 AM) Hct [36.0-48.0 %] 84.5 fL (11/09/17 7:18 AM) 84.7 fL (11/08/17 7:39 AM) 84.8 fL (11/07/17 4:54 AM) MCV [80.0-98.0 fL] 28.2 pg (11/09/17 7:18 AM) 28.3 pg (11/08/17 7:39 AM) 28.1 pg (11/07/17 4:54 AM) MCH [27.0-31.0 pg] 33.4 g/dL (11/09/17 7:18 AM) 33.4 g/dL (11/08/17 7:39 AM) 33.2 g/dL (11/07/17 4:54 AM) MCHC [32.0-36.0 g/dL] 14.8 % *HI* (11/09/17 7:18 AM) 14.9 % *HI* (11/08/17 7:39 AM) 14.9 % *HI* (11/07/17 4:54 AM) RDW [11.5-14.5 %] 10.3 fL (11/09/17 7:18 AM) 10.1 fL (11/08/17 7:39 AM) 10.1 fL (11/07/17 4:54 AM) MPV [7.4-10.4 fL] 60 K/CMM *LOW* (11/09/17 7:18 AM) 72 K/CMM *LOW* (11/08/17 7:39 AM) 99 K/CMM *LOW* (11/07/17 4:54 AM) Platelet [133-450 K/CMM] 75.8 % *HI* (11/06/17 7:36 AM) 82.8 % *HI* (11/05/17 6:01 AM) 90.3 % *HI* (11/04/17 9:46 PM) Segs [45.0-75.0 %] 14.5 % *LOW* (11/06/17 7:36 AM) 10.4 % *LOW* (11/05/17 6:01 AM) 6.0 % *LOW* (11/04/17 9:46 PM) Lymphocytes [20.0-40.0 %] 7.1 % (11/06/17 7:36 AM) 6.3 % (11/05/17 6:01 AM) 3.2 % (11/04/17 9:46 PM) Monocytes [2.0-12.0 %] 1.4 % (11/06/17 7:36 AM) 0.1 % (11/05/17 6:01 AM) 4.8 % *HI* (10/29/17 9:27 AM) Eosinophils [0.0-4.0 %] 1.2 % *HI* (11/06/17 7:36 AM) 0.4 % (11/05/17 6:01 AM) 0.5 % (11/04/17 9:46 PM) Basophils [0.0-1.0 %] 9.5 K/CMM *HI* (11/06/17 7:36 AM) 10.1 K/CMM *HI* (11/05/17 6:01 AM) 12.3 K/CMM *HI* (11/04/17 9:46 PM) Segs-Bands # [1.5-8.1 K/CMM] 1.8 K/CMM (11/06/17 7:36 AM) 1.3 K/CMM (11/05/17 6:01 AM) 0.8 K/CMM *LOW* (11/04/17 9:46 PM) Lymphocytes # [1.0-5.5 K/CMM] 0.9 K/CMM *HI* (11/06/17 7:36 AM) 0.8 K/CMM (11/05/17 6:01 AM) 0.4 K/CMM (11/04/17 9:46 PM) Monocytes # [0.0-0.8 K/CMM] 0.2 K/CMM (11/06/17 7:36 AM) 0.5 K/CMM (10/29/17 9:27 AM) Eosinophils # [0.0-0.5 K/CMM] 0.1 K/CMM (11/06/17 7:36 AM) 0.1 K/CMM (11/05/17 6:01 AM) 0.1 K/CMM (11/04/17 9:46 PM) Basophils # [0.0-0.2 K/CMM] Normal (10/29/17 9:27 AM) RBC Morph Slight *NA* (10/29/17 9:27 AM) Large Plt 13.1 seconds (10/29/17 9:27 AM) PT [12.0-14.7 seconds] 0.99 (10/29/17 9:27 AM) INR [0.85-1.17] 29.9 seconds (10/29/17 9:27 AM) PTT [22.9-35.8 seconds] MOLECULAR DIAGNOSTIC 1 2 3 Most recent to oldest [Reference Range]: Not Detected (11/06/17 4:13 PM) S. aureus [Not Detected] Not Detected (11/06/17 4:13 PM) S. epidermidis [Not Detected] Not Detected (11/06/17 4:13 PM) S. lugdunensis [Not Detected] Not Detected (11/06/17 4:13 PM) S. anginosus grp [Not Detected] Not Detected (11/06/17 4:13 PM) S. agalactiae [Not Detected] Not Detected (11/06/17 4:13 PM) S. pneumoniae [Not Detected] Not Detected (11/06/17 4:13 PM) S. pyogenes [Not Detected] Not Detected (11/06/17 4:13 PM) E. faecalis [Not Detected] Not Detected (11/06/17 4:13 PM) E. faecium [Not Detected] Not Detected (11/06/17 4:13 PM) Staphylococcus spp. [Not Detected] Not Detected (11/06/17 4:13 PM) Streptococcus spp. [Not Detected] Not Detected (11/06/17 4:13 PM) Listeria spp. [Not Detected] Not Detected (11/06/17 4:13 PM) mecA Methicillin Resistance [Not Detected] Not Detected (11/06/17 4:13 PM) Jovany Vancomycin Resistance [Not Detected] Not Detected (11/06/17 4:13 PM) vanB Vancomycin Resistance [Not Detected] Microbiology Reports TEST: Culture: Urine STATUS: Auth (Verified) BODY SITE: SOURCE: Urine, Clean Catch COLLECTED DATE/TIME: 11/08/17 2:55 AM FINAL REPORT <10,000 CFU/mL Gram Negative Rods Immunizations Given and Recorded Vaccine Date Status Refusal Reason Hx pneumococcal vaccine 06/19/17 Given Procedures Procedure Date Related Diagnosis Body Site Status Angiogram 03/09/17 Completed Colonoscopy 03/13/15 Completed Esophagogastroduodenoscopy 03/13/15 Completed Appendectomy1 Completed Back fusion Completed section Completed Craniotomy Completed Excision of gallbladder Completed Hysterectomy Completed Laminectomy Completed Tonsillectomy Completed 12X Social History Social History Type Response Substance Abuse Use: None. Alcohol Never Smoking Status Former smoker; Type: Cigarettes; Previous treatment: None; Ready to change: No; Concerns about tobacco use in household: No; Lives with someone who smokes; Cigarette Smoking Last 365 Days No; Reg Smoking Cessation Counseling No; Number of years: 42; 1 entered on: 10/29/17 1quit 2 yrs ago Assessment and Plan Extracted from: Title: Clinical Document Author: Bala Orosco MD Date: 11/11/17 Date of admission: 11/04/17 Date of discharge: 11/11/17 Discharge diagnoses 1. Altered mental status secondary to urinary tract infection 2. Gram-negative kirsty urinary tract infection 3. Left PAD needing femoral to popliteal bypass on 11/04 3. Chronic kidney disease stage III Hospital course Patient is a 72-year-old woman with CKD with DM and hypertension who underwent femoral popliteal bypass graft to the left leg on 11/04. Following the surgery patient had altered mental status and therefore was admitted. Neurologic evaluation was undertaken. Patient was found to have urinary tract infection which was treated. Her mental status is at baseline at this time. Inpatient rehab evaluation has also been done this admission. Due to fairly good functional capacity, inpatient rehab is not approved at this time. Therefore, patient will be discharged home with follow-up with vascular surgery. Patient seen and examined on the day of discharge. Able to stand up and ambulate. Remains afebrile. Patient seen and examined on the day of discharge. Vitals at the time of discharge are temperature 98.3. Blood pressure 131/67, heart rate 62, respiratory rate 16, 96% on room air. Discharge condition fair Discharge home Please see discharge medicine reconciliation form Heart healthy diet Follow-up with vascular surgery. Extracted from: Title: Clinical Document Author: Ankur Clement MD Date: 11/10/17 VASCULAR SURGERY PROGRESS NOTE DIAGNOSIS: PAD LUCI SUBJECTIVE: weak but improving OBJECTIVE: _ General: AAO Chest: Clear to auscultation, Basilar rhonchi/ Rales Cardiac: Rate rhythym is regular, no murmurs Abdomen: Soft, Tender, No peritoneal signs No pulsatile mass Vascular exam: well perfused foot ASSESSMENT & PLAN: Inpt rehab consult placed for discharge planning _ VitalsTmp(F)Tmp(C)XabcpINIZTHmqmvONWqR3PUZ6VDER3 11/10 20:14 95------ 11/10 19:2798.136.29hrzt305/66---[id number]------ 11/10 15:0397.736.28qunr677/65---65--94------ 11/10 11:0497.536.76izrq217/79---57--96------ 11/10 07:1996.436.12xbcs511/56---70--98------ 24 Hr Tmax: 98.1F (36.72c) at 11/10 19:27Vital Signs are the last 5 in the past 48 hours. 24 Hr Tmin: 97.4F (36.33c) at 11/10 07:19Weights are the last 5 in 60 days, plus initial. DateWt(kg)Wt(lb)Ht(cm)Ht(in)MethodBMIBSA 10/29 (initial) 90.00 198.00Measured 33.02.03 20479.10 65.00Stated 24 Hr Point of Care Glucoses 11/10 2133Glucose NNM201 H 11/10 1113Glucose FPM778 H 11/10 0747Glucose BWJ517 H 11/10 0537Glucose GUG288 H Most Recent Scores: 11/10/17Pain Intensity NRS (0-10)0 11/10/17Glasgow Coma Score15 11/10/17Braden Score21 11/10/17[place] Fall Score11 Lines, Tubes, and Drains: 11/09/2017 01:32 Peripheral Lines: Antecubital Left 20 gauge Over the needle catheter Surgical Procedures: 11/04/17 14:41FEM-POP BYPASS /C GSV VS PTFE GRAFT, LT [id number] Surgeon: Moreno Caballero MD (Service: CVT) I/O Intake OutputBalance 11/10/2017 7a-3p 450.00 0.00 450.00 3p-11p 240.00 0.00 240.00 11p-7a 0.00 0.00 0.00 Totals 690.00 0.00 690.00 As of 23:30 11/09/2017 7a-3p 300.50 0.00 300.50 3p-11p 125.00 0.00 125.00 11p-7a 125.00 0.00 125.00 Totals 550.50 0.00 550.50 11/08/2017 7a-3p 605.00 0.00 605.00 3p-11p 320.00 0.00 320.00 11p-7a 252.00 0.00 252.00 Totals 1177.00 0.00 1177.00 24hr Labs 11/10 2133 POC Performing LocatioSee Note Glucose ZCP390 H 11/10 1113 POC Performing LocatioSee Note Glucose AQR235 H 11/10 0747 POC Performing LocatioSee Note Glucose JOZ206 H 11/10 0537 POC Performing LocatioSee Note Glucose WZE843 H Scheduled Meds (9): 11/04/17 18:47 aspirin (aspirin 81 mg tablet, chewable) 81 mg PO Daily [Last Rescheduled Dt/Tm: 11/04/17 18:47:00 CDT] [eMAR Schedule: (11/10/17) 09:00; (11/11/17) 09:00] 11/04/17 21:00 atorvastatin 80 mg PO Bedtime [eMAR Schedule: (11/10/17) 21:00] [Future Dose: 11/11/17 21:00] 11/06/17 17:15 budesonide-formoterol (Symbicort 160/4.5 inhalation aerosol with adapter) 2 inhalation INHALATION RBID [Last Rescheduled Dt/Tm: 11/07/17 8:00:00 CDT] [eMAR Schedule: (11/10/17) 08:00, 20:00; (11/11/17) 08:00] 11/10/17 11:00 cefepime + Sodium Chloride 0.9% IV 100 mL 1 gm IVPB [id number] 25 ml/hr [Last Rescheduled Dt/Tm: 11/10/17 11:00:00 CDT] [eMAR Schedule: (11/10/17) 11:00; (11/11/17) 11:00] 11/09/17 17:00 hydrALAZINE (hydrALAZINE 25 mg oral tablet) 25 mg PO TID [eMAR Schedule: (11/10/17) 09:00, 13:00, 17:00; (11/11/17) 09:00] 11/05/17 9:00 insulin glargine (insulin glargine 100 units/mL subcutaneous solution) 10 unit SUB-Q Daily 0 ml/hr [eMAR Schedule: (11/10/17) 09:00; (11/11/17) 09:00] 11/06/17 21:00 melatonin (melatonin 3 mg oral tablet) 3 mg PO Bedtime [eMAR Schedule: (11/10/17) 21:00] [Future Dose: 11/11/17 21:00] 11/07/17 21:00 metoprolol (metoprolol tartrate) 25 mg PO Q12H [eMAR Schedule: (11/10/17) 09:00, 21:00; (11/11/17) 09:00] 11/05/17 9:00 pantoprazole (Protonix) 40 mg PO Daily [eMAR Schedule: (11/10/17) 09:00; (11/11/17) 09:00] Unscheduled Meds (2): 08/18/17 10:00 ceFAZolin + sterile water 20 mL (Ancef + sterile water 20 mL) 2 gm IV PRE OP 40 ml/hr 08/18/17 10:00 vancomycin + Dextrose 5% in Water IV 250 mL 1 gm IV PRE OP 250 ml/hr PRN Meds (22): 11/04/17 18:02 Dextrose 50% in Water IV (Dextrose 50% Syringe) 12.5 gm IVP PRN 11/04/17 18:02 Dextrose 50% in Water IV (Dextrose 50% Syringe) 25 gm IVP PRN 11/06/17 15:35 acetaminophen (Tylenol) 650 mg PO Q6H 11/04/17 18:02 albuterol-ipratropium (DuoNeb inhalation solution) 3 ml NEB PRN 11/09/17 8:37 bisacodyl (Dulcolax Laxative) 10 mg FL Daily 11/05/17 9:51 diazepam (Valium) 2 mg PO BID 11/04/17 18:02 glucagon 1 mg IM PRN 11/04/17 18:01 hydrALAZINE 10 mg IV Q4H 11/04/17 18:02 insulin lispro 1 unit SUB-Q TID-Before Meals 11/04/17 18:02 insulin lispro 2 unit SUB-Q TID-Before Meals 11/04/17 18:02 insulin lispro 3 unit SUB-Q TID-Before Meals 11/04/17 18:02 insulin lispro 4 unit SUB-Q TID-Before Meals 11/04/17 18:02 insulin lispro 5 unit SUB-Q TID-Before Meals 11/04/17 22:05 insulin lispro 1 unit SUB-Q Bedtime 11/04/17 22:05 insulin lispro 2 unit SUB-Q Bedtime 11/04/17 22:05 insulin lispro 3 unit SUB-Q Bedtime 11/04/17 22:05 insulin lispro 4 unit SUB-Q Bedtime 11/04/17 18:01 labetalol 10 mg IV Q6H 11/06/17 16:26 (Suspended) morphine Sulfate 12 mg PO Q6H 11/08/17 23:36 morphine Sulfate 6 mg PO Q6H 11/10/17 9:24 ondansetron (Zofran) 4 mg PO Q8H 11/06/17 10:54 tramadol (tramadol 50 mg oral tablet) 50 mg PO Q12H One Time Meds: None Continuous Infusions: None
--- OUTSIDE RECORDS SUMMARY | 2018-03-08 16:38 | XMS REPORT ---
Author Author [facility] Address Unknown Phone Unavailable Care Team Providers Care Nylon Machine Operator Name Role Phone Reina ROBLERO Unavailable Unavailable Maru CURIEL Unavailable Unavailable Problems This patient has no known problems. Allergies, Adverse Reactions, Alerts This patient has no known allergies or adverse reactions. Medications This patient has no known medications. Results Test Description Test Time Test Comments Text Results Atomic Results Result Comments CT BRAIN WO [place] [address] Patient Name: BRIAN VÁZQUEZ MR #: [id number] : 1945 Age/Sex: 72/F Req #: [id number] Adm Physician: Ordered by: CATY GREY SENIOR STOCK PLAN ADMINISTRATOR Report #: [id number] Location: ER Room/Bed: Procedure: [id number] CT/CT BRAIN WO Exam Date: 05/30/17 Exam Time: 1053 REPORT STATUS: Signed Examination: CT BRAIN WO History:Headache x4 days, elevated blood pressure Comparison studies:CT brain, 05/03/2017 Technique: Axial images were obtained from the skull base to the vertex. Coronal and sagittal images reconstructed from the axial data. Findings: Scalp: No abnormalities. Bones: Postoperative changes from prior suboccipital craniectomy. Brain sulci: Appropriate for age. Ventricles: Normal in size and configuration. No hydrocephalus. Extra-axial space: No abnormalities. Parenchyma: No abnormal densities. No masses, hemorrhage, acute or chronic vascular insults. Sellar/suprasellar region: No abnormalities. Craniocervical junction: Patent foramen magnum. No Chiari one malformation. Incidental findings: Vascular calcifications at the carotid siphons.. Impression: 1. No acute intracranial abnormalities. Particularly no hemorrhage. 2. Postoperative changes from prior suboccipital craniectomy. The preliminary report was reviewed and a final report issued by Dr. Kent neuroradiologist on 05/30/2017 at 3:59 PM. Signed by: Dr. Maurice Kent M.D. on 05/30/2017 3:59 PM Dictated By: MAURICE KENT MD 58 Transcribed By: PAULA on 05/30/171558 COPY TO: CATY GREY NP CHEST SINGLE (PORTABLE) [place] [address] Patient Name: BRIAN VÁZQUEZ MR #: [id number] : 1945 Age/Sex: 71/F Req #: [id number] Adm Physician: Ordered by: JOSIANE CURIEL MD Report #: [id number] Location: ER Room/Bed: Procedure: [id number] DX/CHEST SINGLE (PORTABLE) Exam Date: 05/15/17 Exam Time: 1635 REPORT STATUS: Signed PROCEDURE: CHEST SINGLE (PORTABLE) COMPARISON: Chest x-ray 05/03/17 INDICATIONS: high blood pressure FINDINGS: Portable frontal image obtained at 1418 hrs. LUNGS: Diffusely hyperinflated. No consolidation or vascular congestion. Calcified granulomata of the right upper lobe are stable. PLEURA: No effusions or pneumothorax. HEART T MEDIASTINUM: The heart is normal in size. Calcifications of the aortic arch are stable. BONES T SOFT TISSUES: No focal osseous lesions. The soft tissues are unremarkable. CONCLUSION: Stable pulmonary hyperinflation suggestive of COPD. Healed granulomatous inflammation. Dictated by: Dinorah Lindsay M.D. on 05/15/2017 at 16:54 Electronically approved by: Dinorah Lindsay M.D. on 05/15/2017 at 16:54 Dictated By: DINORAH LINDSAY MD 53 Transcribed By: MICHELE on 05/15/171653 COPY TO: JOSIANE CURIEL MD CT BRAIN WO [place] [address] Patient Name: BRIAN VÁZQUEZ MR #: [id number] : 1945 Age/Sex: 71/F Req #: [id number] Adm Physician: Ordered by: HUBER ROBLERO MD Report #: [id number] Location: ER Room/Bed: Procedure: [id number] CT/CT BRAIN WO Exam Date: 05/03/17 Exam Time: 0355 REPORT STATUS: Signed EXAMINATION: Head CT without contrast. HISTORY:Severe headache. COMPARISON:CT brain from 05/31/2016 and MRI brain M 06/03/2016. TECHNIQUE: Multidetector axial images were obtained from the foramen magnum to the vertex without contrast. The images were reconstructed using brain and bone algorithms. Thin section brain images were reformatted into coronal and sagittal planes. Intravenous contrast: None IMAGE QUALITY: Acceptable. FINDINGS: Skull/scalp: Unchanged expected postoperative changes from prior suboccipital craniectomy and resection of the posterior arch of C1. Parenchyma: Nonspecific few, scattered supratentorial white matter hypodensity are likely related to small vessel ischemic changes. No acute hemorrhage, mass or acute major vascular territorial infarct. Arteries: No density suggestive of thrombosis. Dural sinuses: No abnormal density suggestive of thrombosis. Ventricles: No hydrocephalus or displacement. Extra-axial spaces: No abnormal density. Brain volume: Normal for age. Craniocervical junction: No mass, Chiari malformation, or basilar invagination. Sella: No mass. Paranasal/mastoid sinuses: Imaged portions unremarkable. IMPRESSION: No acute intracranial abnormality. Expected postoperative changes from prior suboccipital craniectomy/resection of posterior arch of C1. Mild generalized age-related cerebral volume loss and mild supratentorial white matter microvascular ischemic changes. Signed by: Dr. Martha Moore M.D. on 05/03/2017 4:32 AM Dictated By: MARTHA MOORE MD 1 Transcribed By: PAULA on 05/03/17431 COPY TO: HUBER ROBLERO MD CHEST SINGLE (PORTABLE) [place] [address] Patient Name: BRIAN VÁZQUEZ MR #: [id number] : 1945 Age/Sex: 71/F Req #: [id number] Adm Physician: Ordered by: HUBER ROBLERO MD Report #: [id number] Location: ER Room/Bed: Procedure: 3020-0518 DX/CHEST SINGLE (PORTABLE) Exam Date: 05/03/17 Exam Time: 354 REPORT STATUS: Signed CHEST SINGLE (PORTABLE), 05/03/2017 3:30 AM Technique: CHEST SINGLE (PORTABLE) Comparison: 05/31/2016. Clinical history: Shortness of breath Findings: Stable appearance of the heart, mediastinum, lungs and pleural spaces. Incidental right midlung calcified granuloma. Impression: 1. Lines/Tubes: None 2. No acute abnormality. Signed by: Dr Dot Russo MD on 05/03/2017 4:50 AM Dictated By: DOT RUSSO MD 9 Transcribed By: PAULA on 05/03/17449 COPY TO: HUBER ROBLERO MD
--- OUTSIDE RECORDS SUMMARY | 2018-03-08 16:38 | XMS REPORT | Summary of Care ---
Author Author [facility] Organization [facility] Address Unknown Phone Unavailable Encounter [facility] [place]) [id number] Date(s): 08/18/17 - 08/18/17 [facility] [address] [place] [address]- Encounter Diagnosis Encounter for other preprocedural examination (Final) - 10/03/17 Type 2 diabetes mellitus with diabetic peripheral angiopathy without gangrene (Final) - Gastro-esophageal reflux disease without esophagitis (Final) - Atherosclerotic heart disease of [place] coronary artery without angina pectoris (Final) - Cough (Final) - Discharge Disposition: Home or Self Care Attending Physician: Moreno Caballero MD Referring Physician: Moreno Caballero MD Vital Signs Most recent to 1 oldest [Reference Range]: Height 170.18 cm (08/18/17 9:03 AM) Temperature Oral 98.1 DegF [96.4-99.1 DegF] (08/18/17 9:55 AM) Blood Pressure 124/70 mmHg [90-140/60-90 mmHg] (08/18/17 9:55 AM) Peripheral Pulse 90 bpm Rate [60-100 bpm] (08/18/17 9:55 AM) Weight 92.727 kg (08/18/17 9:03 AM) Body Mass Index 32.02 m2 (08/18/17 9:03 AM) Problem List Condition Effective Dates Status Health Status Informant Abdominal Resolved pain(Confirmed) [place] Active convulsion(Confirmed ) Back pain(Confirmed) Active COPD(Confirmed) Active Diabetes(Confirmed) Active GERD Active (gastroesophageal reflux disease)(Confirmed) Hypertension(Confirm Active ed) Migraine Resolved headache(Confirmed) Thrombocytopenia(Con Resolved firmed) Allergies, Adverse Reactions, Alerts Substance Reaction Severity Status codeine Active Dilantin Active contrast media Active (iodine-based) TEGretol Active PHENobarbital Sodium Active Medications Ancef + sterile water 20 mL 2 gm, Route: IV, PRE OP, Dosing Weight 94.091, kg, Start date: 08/18/17 10:00:00 CDT, Duration: 1 day, Stop date: 08/19/17 9:59:00 CDT, ABX Indication: Surgical Prophylaxis Notes: (Same As: Ancef, Kefzol) MEDICATION WASTE Product Size: 1000 mgP roduct Wasted: ___ mg Start Date: 08/18/17 Stop Date: 11/11/17 Status: Discontinued fluticasone nasal 0.05 mg/inh spray 2 spray, NASAL, Daily, 0 Refill(s) Start Date: 08/18/17 Stop Date: 11/11/17 Status: Discontinued spironolactone 25 mg oral tablet 25 mg=1 tab, PO, Daily, 0 Refill(s) Start Date: 08/18/17 Stop Date: 11/11/17 Status: Discontinued vancomycin + Dextrose 5% in Water IV 250 mL 1 gm, Route: IV, Drug form: INJ, PRE OP, Dosing Weight 94.091, kg, Start date: 0 08/18/17 10:00:00 CDT, Duration: 1 day, Stop date: 08/19/17 9:59:00 CDT, ABX Linda cation: Surgical Prophylaxis Notes: TIME CRITICAL MEDICATION(Same As: Vancocin)Infusion rate< 1000 mg: infuse over 1 [id number] - 1500 mg: infuse over 1.5 [id number] - 2000 mg: infuse over 2 hours> 2001 mg: infuse over 2.5 hoursFor adult patients only: Round to nearest 250 mg per Medical Staff approval MEDICATION WASTE Product Size: 1000 mgProduct Wasted: ___ mg Start Date: 08/18/17 Stop Date: 11/11/17 Status: Discontinued Results BLOOD BANK RESULTS Most recent to 1 oldest [Reference Range]: ABO/Rh B POS *Unknown* (08/18/17 10:21 AM) Antibody Scrn Negative (08/18/17 10:21 AM) ELECTROLYTES Most recent to 1 oldest [Reference Range]: Sodium Lvl [135-145 135 mEq/L mEq/L] (08/18/17 10:21 AM) Potassium Lvl 6.4 mEq/L [3.5-5.1 mEq/L] *CRIT* (08/18/17 10:21 AM) Chloride Lvl [95-109 100 mEq/L mEq/L] (08/18/17 10:21 AM) CO2 [24-32 mEq/L] 26 mEq/L (08/18/17 10:21 AM) AGAP [10.0-20.0 15.4 mEq/L mEq/L] (08/18/17 10:21 AM) CHEM PANEL Most recent to 1 oldest [Reference Range]: Creatinine Lvl 2.51 mg/dL [0.50-1.40 mg/dL] *HI* (08/18/17 10:21 AM) eGFR 19 mL/min/1.73m2 1 *NA* (08/18/17 10:21 AM) BUN [7-22 mg/dL] 34 mg/dL *HI* (08/18/17 10:21 AM) Glucose Lvl [70-99 636 mg/dL 2 mg/dL] *CRIT* (08/18/17 10:21 AM) Calcium Lvl 9.3 mg/dL [8.5-10.5 mg/dL] (08/18/17 10:21 AM) 1Result Comment: The eGFR is calculated [...] tiplied by the estimated BMI. 2Result Comment: Critical Result(s) called to Yoli Nuno at 08/18/2017 10:56 by DMF. Read back OK. SPECIAL CHEMISTRY Most recent to 1 oldest [Reference Range]: Hgb A1C [<=5.6 %] 14.4 % *HI* (08/18/17 10:21 AM) HEMATOLOGY Most recent to 1 oldest [Reference Range]: WBC [3.7-10.4 K/CMM] 10.1 K/CMM (08/18/17 10:21 AM) RBC [4.20-5.40 3.85 M/CMM M/CMM] *LOW* (08/18/17 10:21 AM) Hgb [12.0-16.0 g/dL] 10.7 g/dL *LOW* (08/18/17 10:21 AM) Hct [36.0-48.0 %] 32.9 % *LOW* (08/18/17 10:21 AM) MCV [80.0-98.0 fL] 85.3 fL (08/18/17 10:21 AM) MCH [27.0-31.0 pg] 27.9 pg (08/18/17 10:21 AM) MCHC [32.0-36.0 32.7 g/dL g/dL] (08/18/17 10:21 AM) RDW [11.5-14.5 %] 14.2 % (08/18/17 10:21 AM) MPV [7.4-10.4 fL] 10.2 fL (08/18/17 10:21 AM) Platelet [133-450 55 K/CMM K/CMM] *LOW* (08/18/17 10:21 AM) Segs [45.0-75.0 %] 67.2 % (08/18/17 10:21 AM) Lymphocytes 20.9 % [20.0-40.0 %] (08/18/17 10:21 AM) Monocytes [2.0-12.0 6.2 % %] (08/18/17 10:21 AM) Eosinophils [0.0-4.0 4.7 % %] *HI* (08/18/17 10:21 AM) Basophils [0.0-1.0 1.0 % %] (08/18/17 10:21 AM) Segs-Bands # 6.8 K/CMM [1.5-8.1 K/CMM] (08/18/17 10:21 AM) Lymphocytes # 2.1 K/CMM [1.0-5.5 K/CMM] (08/18/17 10:21 AM) Monocytes # [0.0-0.8 0.6 K/CMM K/CMM] (08/18/17 10:21 AM) Eosinophils # 0.5 K/CMM [0.0-0.5 K/CMM] (08/18/17 10:21 AM) Basophils # [0.0-0.2 0.1 K/CMM K/CMM] (08/18/17 10:21 AM) PT [12.0-14.7 8.0 seconds seconds] *LOW* (08/18/17 10:21 AM) INR [0.85-1.17] 0.53 *LOW* (08/18/17 10:21 AM) PTT [22.9-35.8 32.3 seconds seconds] (08/18/17 10:21 AM) Immunizations Given and Recorded Vaccine Date Status [...] 1quit 2 yrs ago Assessment and Plan No data available for this section
[2018-03-08] MEDS ORDERED: SODIUM CHLORIDE 0.9% 1000ML 1,000 ML IV STA (17:24)
[2018-03-08] MEDS ORDERED: ONDANSETRON HCL INJ 2 MG/ML VIAL IV PRN (17:30)
[2018-03-08] MEDS ORDERED: DIPHENHYDRAMINE HCL INJ 50 MG/ML VIAL IV PRN (17:30)
[2018-03-08] MEDS ORDERED: VANCOMYCIN 1GM/NS 250 ML 250 ML IV SCH (17:30)
[2018-03-08] MEDS ORDERED: CLONIDINE HCL 0.1 MG TAB PO PRN (17:30)
[2018-03-08] MEDS ORDERED: ZOLPIDEM TARTRATE 5 MG TAB PO PRN (17:30)
[2018-03-08] MEDS ORDERED: DIPHENHYDRAMINE HCL 25 MG CAP PO PRN (17:30)
[2018-03-08] MEDS ORDERED: ACETAMINOPHEN 325 MG TAB PO PRN (17:30)
[2018-03-08] MEDS ORDERED: ENALAPRILAT IV INJ 1.25 MG/ML VIAL IV PRN (17:30)
[2018-03-08] MEDS ORDERED: PROMETHAZINE 12.5MG/ NACL 0.9% 12.5 MG/50 ML BAG IV PRN (17:30)
[2018-03-08] MEDS ORDERED: IBUPROFEN 200 MG TAB PO PRN (17:30)
[2018-03-08] MEDS ORDERED: HYDRALAZINE HCL 20 MG/ML VIAL IV STA (17:32)
[2018-03-08] MEDS ORDERED: NITROGLYCERIN 2% OINT 1 GM PKT TOP ONE (17:45)
[2018-03-08 17:54] LABS: CLARITY,URINE SL CLOUDY (CLEAR); COLOR,URINE YELLOW (YELLOW); LEUKOCYTE ESTERASE ,URINE NEGATIVE (NEGATIVE); NITRITE,URINE NEGATIVE (NEGATIVE); PROTEIN,URINE DIPSTICK 2+ (NEGATIVE)
[2018-03-08 17:55] LABS: BILIRUBIN,URINE NEGATIVE (NEGATIVE); KETONES,URINE TRACE (NEGATIVE); URINE UROBILINOGEN 0.2 mg/dL (0.2 - 1)
[2018-03-08] MEDS ORDERED: PIPER-TAZ 3.375 GM 50 ML IV SCH (18:00)
[2018-03-08 18:04] LABS: BACTERIA,URINE FEW /HPF; EPITHELIAL CELLS,URINE MODERATE /LPF; RBC,URINE 0-5 /HPF (0-5)
[2018-03-08] MEDS ORDERED: ATORVASTATIN CA80 MG PO (18:19)
[2018-03-08] MEDS ORDERED: GLIMEPIRIDE4 MG PO (18:19)
[2018-03-08] MEDS ORDERED: CARVEDILOL3.125 MG PO (18:19)
[2018-03-08] MEDS ORDERED: AMLODIPINE BESYL5 MG PO (18:19)
[2018-03-08] MEDS ORDERED: ISOSORBIDE MONO60 MG (18:19)
[2018-03-08] MEDS ORDERED: LISINOPRIL10 MG PO (18:19)
[2018-03-08] MEDS ORDERED: PROMETHAZINE HC25 M1 PO (18:19)
[2018-03-08] MEDS ORDERED: ULTRAM 50MG50 MG PO (18:19)
[2018-03-08] MEDS ORDERED: FLUTICASONE PRO16 GM (18:19)
[2018-03-08] MEDS ORDERED: SPIRONOLACTONE25 MG PO (18:19)
[2018-03-08 18:53] LABS: BASOPHILS # (AUTO) 0.1 (0.0-0.1); BASOPHILS % 0.6 % (0.0-1.0); EOSINOPHILS # (AUTO) 0.5 (0.0-0.4); EOSINOPHILS % 4.3 % (0.0-6.0); HEMATOCRIT 37.7 % (34.2-44.1); HEMOGLOBIN 12.4 g/dL (12.0-16.0); LYMPHOCYTES % 28.3 % (18.0-39.1); MEAN CORPUSCULAR HEMOGLOBIN 27.6 pg (28-32); MEAN CORPUSCULAR HGB CONC 32.9 g/dL (31-35); MONOCYTES # (AUTO) 0.6 (0.2-0.8); MONOCYTES % 5.3 % (4.4-11.3); NEUTROPHILS # (AUTO) 6.4 (2.1-6.9); NEUTROPHILS % 60.7 % (38.7-80.0); PLATELET COUNT 72 x10e3/uL (140-360); RED BLOOD COUNT 4.49 x10e6/uL (3.6-5.1)
[2018-03-08 19:18] LABS: ALBUMIN 3.2 g/dL (3.5-5.0); ALBUMIN/GLOBULIN RATIO 0.9 (0.8-2.0); ANION GAP 18.9 mmol/L (8-16); CALCIUM 9.4 mg/dL (8.4-10.2); CREATININE, SERUM 3.2 mg/dL (0.57-1.11); POTASSIUM 4.9 mmol/L (3.5-5.1)
[2018-03-08] MEDS ORDERED: ONDANSETRON HCL INJ 2 MG/ML VIAL IV ONE (20:30)
[2018-03-08] MEDS ORDERED: HYDROCODONE/APAP 10MG-325MG TAB PO ONE (20:30)
[2018-03-09 00:46] VITALS: BP 157/69
[2018-03-09] MEDS ORDERED: FAMOTIDINE 20 MG TAB PO SCH (07:30)
== END 2018-03-09 01:00 | disposition home or self-care (01) ==
LOC: ER 16:33
DX: M79.605 Pain in left leg (principal); I10 Essential (primary) hypertension; E11.9 Type 2 diabetes mellitus without complications; J98.4 Other disorders of lung
CPT/HCPCS: 36415; 80053; 81001; 85025; 87040; 93971; 99284; J0360; J2405; J2543

== ENCOUNTER 2019-06-11 20:00 | Inpatient (IN) | payer MEDICARE, OTHER ==
[~2019-06-11] VITALS: Ht 170.2 cm; Wt 95.3 kg
[~2019-06-11 20:00] MED LIST changes: +AMLODIPINE BESYL5 MG PO; +ATORVASTATIN CA80 MG PO; +CARVEDILOL3.125 MG PO; +FLUTICASONE PRO16 GM; +GLIMEPIRIDE4 MG PO; +ISOSORBIDE MONO60 MG; +LISINOPRIL10 MG PO; +PROMETHAZINE HC25 M1 PO; +SPIRONOLACTONE25 MG PO; +ULTRAM 50MG50 MG PO
--- OUTSIDE RECORDS SUMMARY | 2019-06-11 20:03 | XMS REPORT | Summary of Care ---
Author Author Miko Luciano, Cristel Stearns Unknown Address Unknown Phone Unavailable Care Team Providers Care Doctor Naturopathic Name Role Phone LYNN Cervantes, REKHA Unavailable Unavailable RUTH Hart, BIMAL Unavailable Unavailable YESSENIA Hart, SHILPI Unavailable Unavailable Miko Luciano, Cristel Unavailable Unavailable WELLINGTON N.P., THANH Unavailable Unavailable MCFARLANE N.P., JUAN Unavailable Unavailable YESSENIA OROPEZA NV, SHILPI MILLER Unavailable Unavailable RUDY, TONY Unavailable Unavailable ELI OROPEZA NV, RAJINDER Saenz Unavailable Unavailable RUTH OROPEZA NV, BIMAL Delgado Unavailable Unavailable TONY OROPEZA, ROSSY Unavailable Unavailable BERTRAND OROPEZA, FLOR S Unavailable Unavailable ELIZ OLMSTEADP, THANH Unavailable Unavailable Eliot OROPEZA, Jeremy Unavailable Unavailable Mayi OROPEZA, Hugh Unavailable Unavailable YANI OROPEZA NV, JUVENCIO RUSH Unavailable Unavailable FEDERICO OROPEZA NV, JUNE SUAREZ Unavailable Unavailable Unavailable Unavailable Functional Status Name Dates Details Functional status health issues are not documented Status: Name Dates Details Cognitive status health issues are not documented Status: Problems Name Dates Details Hematuria, microscopic (599.72, R31.29) Status: Active Pneumaturia (599.84, R39.89) Status: Active Neuropathy involving both lower extremities (356.9, G57.93) Status: Active Precordial pain (786.51, R07.2) Status: Active Skin lesions, generalized (709.9, L98.9) Status: Active Tenosynovitis, de Quervain (727.04, M65.4) Status: Active TMJ (temporomandibular joint syndrome) (524.60, M26.609) Status: Active Menopause (627.2, Z78.0) Status: Active Encounter for mini-mental status examination Status: Active Primary osteoarthritis of right hand (715.14, M19.041) Status: Active Seborrheic keratosis (702.19, L82.1) Status: Active Encounter for preoperative vascular examination (V72.81, Z01.810) Status: Active Visit for screening mammogram (V76.12, Z12.31) Status: Active Left leg swelling (729.81, M79.89) Status: Active Tenderness of left calf (729.5, M79.662) Status: Active Right upper quadrant abdominal pain of unknown etiology (789.01, R10.11) Status: Active Hypertensive crisis, unspecified (401.9, I16.9) Status: Active Status post femoral-popliteal bypass surgery (V45.89, Z95.828) Status: Active Lower extremity pain (729.5, M79.606) Status: Active Cerebellar herniation (348.4, G93.5) Status: Active Decreased renal function (593.9, N28.9) Status: Active Abnormal weight gain (783.1, R63.5) Status: Active Acute occlusion of artery of lower extremity (444.22, I74.3) Status: Active Angina pectoris (413.9, I20.9) Status: Active Ankle edema (719.07, M25.473) Status: Active Anxiety (300.00, F41.9) Status: Active Bilateral temporomandibular joint pain (524.62, M26.623) Status: Active Chiari malformation Status: Active Colon cancer screening (V76.51, Z12.11) Status: Active Depression screen (V79.0, Z13.31) Status: Active Heart murmur (785.2, R01.1) Status: Active Hip discomfort, left (719.45, M25.552) Status: Active Insomnia (780.52, G47.00) Status: Active Knee pain, bilateral (719.46, M25.561) Status: Active Mixed incontinence (788.33, N39.46) Status: Active 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, 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) Status: Active Tension type headache (339.10, G44.209) Status: Active Myofascial pain syndrome (729.1, M79.18) Status: Active Uncontrolled diabetes mellitus (250.02, E11.65) Status: Active Facet arthritis of lumbosacral region (721.3, M47.817) Status: Active Lumbar facet arthropathy (721.3, M47.816) Status: Active Lumbar spondylosis (721.3, M47.816) Status: Active Uncontrolled hypertension (401.9, I10) Status: Active Intermittent claudication (443.9, I73.9) Status: Active Former smoker (V15.82, Z87.891) Status: Active Dyspnea, unspecified type (786.09, R06.00) Status: Active Long-term use of high-risk medication (V58.69, Z79.899) Status: Active Constipation (564.00, K59.00) Status: Active Dysphagia, unspecified (787.20, R13.10) Status: Active Peripheral vascular disease (443.9, I73.9) Status: Active Lumbar radicular pain (724.4, M54.16) Status: Active Fatigue (780.79, R53.83) Status: Active Vitamin D deficiency (268.9, E55.9) Status: Active Atheroscler of [place] artery of left leg with intermit claudication (440.21, I70.212) Status: Active Shortness of breath on exertion (786.05, R06.02) Status: Active Mitral valve regurgitation (424.0, I34.0) Status: Active Annual physical exam (V70.0, Z00.00) Status: Active Advance directive discussed with patient (V65.49, Z71.89) Status: Active Abnormal ankle brachial index (RENEA) (796.4, R68.89) Status: Active Abnormal EKG (794.31, R94.31) Status: Active Atherosclerosis of coronary artery (414.00, I25.10) Status: Active Controlled substance agreement signed (V58.69, Z79.899) Status: Active GERD without esophagitis (530.81, K21.9) Status: Active Subconjunctival hemorrhage of right eye (372.72, H11.31) Status: Active Status post fall (V15.88, Z91.81) Status: Active Neck pain (723.1, M54.2) Status: Active Right wrist pain (719.43, M25.531) Status: Active Pain of right upper extremity (729.5, M79.601) Status: Active Low back pain (724.2, M54.5) Status: Active Rib pain (786.50, R07.81) Status: Active Accidental fall, subsequent encounter (W19.XXXD) Status: Active Contusion of muscle (924.9, T14.8XXA) Status: Active Nausea (787.02, R11.0) Status: Active Chronic obstructive pulmonary disease (496, J44.9) Status: Active Contusion of thoracic wall (922.1, S20.20XA) Status: Active Influenza vaccine needed (V04.81, Z23) Status: Active Diabetic neuropathy (250.60, E11.40) Status: Active Aortic stenosis (424.1, I35.0) Status: Active CHF (congestive heart failure) (428.0, I50.9) Status: Active On statin therapy (V58.69, Z79.899) Status: Active CKD (chronic kidney disease), stage III (585.3, N18.3) Status: Active Epistaxis (784.7, R04.0) Status: Active Allergic rhinitis, seasonal (477.9, J30.2) Status: Active Screening for breast cancer (V76.10, Z12.39) Status: Active Allergic rhinitis, seasonal (477.9, J30.2) Status: Active Influenza vaccination declined (V64.06, Z28.21) Status: Active Atheroscler of [place] artery of both legs with intermit claudication (440.21, I70.213) Status: Active Diabetes mellitus with stage 4 chronic kidney disease GFR 15-29 (250.40, E11.22) Status: Active Hypertension (401.9, I10) Status: Active Left shoulder pain (719.41, M25.512) Status: Active Cervical spondylosis (721.0, M47.812) Status: Active Rotator cuff arthropathy, left (716.81, M12.812) Status: Active Arthritis of left shoulder region (716.91, M19.012) Status: Active Acute cervical radiculopathy (723.4, M54.12) Status: Active Abnormal CBC (790.6, R79.89) Status: Active Hyperlipidemia (272.4, E78.5) Status: Active CKD (chronic kidney disease), stage V (585.5, N18.5) Status: Active Type 2 diabetes mellitus (250.00, E11.9) Status: Active Essential (primary) hypertension (401.9, I10) Status: Active Bruising (924.9, T14.8XXA) Status: Active Breast nodule (793.89, N63.0) Status: Active Thrombocytopenia (287.5, D69.6) Status: Active Medications Name Dates Details Isosorbide Mononitrate ER 60 MG Oral Tablet Extended Release 24 Hour TAKE ONE TABLET BY MOUTH DAILY Quantity: 90 BIMAL MIRANDA M.D. * Start : 20-Jun-2015 Active Ventolin HFA 108 (90 Base) MCG/ACT Inhalation Aerosol Solution INHALE 1 TO 2 PUFFS BY MOUTH EVERY 4 TO 6 HOURS NEEDED * Quantity: 1 Refills: 2 MCFARLANE N.PRegis, JUAN * Start : 06-Sep-2015 Active diazePAM 5 MG Oral Tablet TAKE 1 TABLET TWICE DAILY * Quantity: 60 Refills: 0 LYNN P.AREKHA Stacy Active Atorvastatin Calcium 80 MG Oral Tablet TAKE ONE TABLET BY MOUTH DAILY * Quantity: 90 Refills: 0 BIMAL MIRANDA M.D. * Start : 24-Oct-2016 Active amLODIPine Besylate 5 MG Oral Tablet TAKE ONE TABLET BY MOUTH TWICE A DAY * Quantity: 180 Refills: 1 BIMAL MIRANDA M.D. * Start : 14-Oct-2018 Active Carvedilol 3.125 MG Oral Tablet TAKE 1 TABLET TWICE DAILY * Quantity: 60 Refills: 6 BIMAL MIRANDA M.D. * Start : 10-Jun-2017 Active Promethazine HCl - 25 MG Oral Tablet Take one tablet by mouth every 8 hours as needed for nausea and vomiting * Quantity: 15 Refills: 0 SHILPI CASAS M.D. * Start : 20-Nov-2017 Active Zantac 150 MG TABS TAKE 1 TABLET DAILY IN THE MORNING as needed * Refills: 0 Active Dulcolax 5 MG Oral Tablet Delayed Release as needed * Refills: 0 Active NovoLIN 70/30 ReliOn (70-30) 100 UNIT/ML Subcutaneous Suspension INJECT 30 UNIT 3 times daily with meals * Quantity: 3 Refills: 6 BIMAL MIRANDA M.D. * Start : 15-Apr-2018 Active 10 ML Vial Reli-On Insulin Syringe 30G 0.5 ML USE DIRECTED. * Quantity: 100 Refills: 3 THANH WELLINGTON N.P. * Start : 15-Apr-2018 Active OneTouch Verio In Vitro Strip USE ONE STRIP TO TEST three TIMES A DAY * Quantity: 100 Refills: 3 BIMAL MIRANDA M.D. * Start : 15-Apr-2018 Active OneTouch Delica Lancets Fine MISC 3 times daily- FOR ONE-TOUCH VERIO FLEX * Quantity: 90 Refills: 5 BIMAL MIRANDA M.D. * Start : 15-Apr-2018 Active traMADol HCl - 50 MG Oral Tablet TAKE 1 TABLET 3 TIMES DAILY NEEDED. * Quantity: 90 Refills: 0 BIMAL MIRANDA M.D. * Start : 19-Apr-2018 Active Pregabalin 50 MG Oral Capsule TAKE 1 CAPSULE DAILY AT BEDTIME * Quantity: 30 Refills: 5 BIMAL MIRANDA M.D. * Start : 19-Apr-2018 Active Lisinopril 20 MG Oral Tablet TAKE ONE TABLET BY MOUTH DAILY * Quantity: 90 Refills: 1 BIMAL MIRANDA M.D. * Start : 02-Sep-2018 Active hydrALAZINE HCl - 50 MG Oral Tablet TAKE 1 TABLET TWICE DAILY. * Quantity: 60 Refills: 6 BIMAL MIRANDA M.D. * Start : 21-Jun-2018 Active Furosemide 20 MG Oral Tablet TAKE 1 TABLET DAILY. * Quantity: 30 Refills: 6 BIMAL MIRANDA M.D. * Start : 06-Jul-2018 Active DULoxetine HCl - 30 MG Oral Capsule Delayed Release Particles TAKE 1 CAPSULE DAILY * Quantity: 90 Refills: 0 Active Nebulizer Device USE DIRECTED. * Quantity: 1 Refills: 0 BIMAL MIRANDA M.D. * Start : 27-Oct-2018 Active Capsaicin 0.025 % External Cream APPLY GENTLY TO AFFECTED AREA 3-4 TIMES DAILY. * Quantity: 1 Refills: 0 BIMAL MIRANDA M.D. * Start : 27-Oct-2018 Active 50 GM Tube Ezetimibe 10 MG Oral Tablet TAKE 1 TABLET DAILY IN THE MORNING * Quantity: 90 Refills: 1 BIMAL MIRANDA M.D. * Start : 24-Dec-2018 Active [employer] Insulin Syringe 31G X 5/16" 0.5 ML USE DIRECTED THREE TIMES DAILY TO INJECT INSULIN * Quantity: 1 Refills: 1 BIMAL MIRANDA M.D. * Start : 13-Jan-2019 Active 100 Unit Box Levocetirizine Dihydrochloride 5 MG Oral Tablet TAKE 1 TABLET BY MOUTH DAILY * Quantity: 30 Refills: 3 BIMAL MIRANDA M.D. * Start : 23-Mar-2019 Active Nasacort Allergy 24HR 55 MCG/ACT Nasal Aerosol ONE SPRAY TO EACH NOSTRIL TWICE DAILY. * Quantity: 1 Refills: 3 BIMAL MIRANDA M.D. * Start : 23-Mar-2019 End : 21-Jul-2019 Active 16.9 ML Bottle Tylenol 8 Hour Arthritis Pain 650 MG Oral Tablet Extended Release TAKE 1 TABLET 3 TIMES DAILY. * Quantity: 90 Refills: 0 BIMAL MIRANDA M.D. 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) Status: Resolved History of Early satiety (780.94, R68.81) Status: Resolved History of headache (V13.89, Z87.898) Status: Resolved History of High blood pressure (401.9, I10) Status: Resolved History of influenza vaccination (V49.89, Z92.29) Status: Resolved History of Leg cramp (729.82, R25.2) Status: Resolved History of Other infective acute otitis externa of left ear (380.10, H60.392) Status: Resolved History of pneumococcal vaccination (V49.89, Z92.29) Status: Resolved History of Postoperative examination (V67.00, Z09) Status: Resolved History of Rotator cuff tendinitis, right (726.10, M75.81) Status: Resolved Procedures Procedure Dates Details [QLH] CBC (INCLUDES DIFF/PLT) Date: 22-Apr-2019 [QLH] CBC (INCLUDES DIFF/PLT) Date: 03-May-2019 [QL] IMMUNOFIXATION, SERUM Date: 03-May-2019 [QLH] IMMUNOGLOBULINS Date: 03-May-2019 [QL] SJOGRENS ANTIBODIES (SS-A,SS-B) Date: 03-May-2019 [place] Digital Mammo DX Ward w akosua [id number] Date: 02-Jun-2019 [place] [id number] Date: 02-Jun-2019 History of Brain Surgery Completed History of Section Completed History of Tonsillectomy With Adenoidectomy Completed History of Gallbladder Surgery Completed History of Appendectomy Completed History of Hysterectomy Completed History of Back Surgery Completed History of Leg surgery Completed History of Femoropopliteal bypass Completed Immunization Name Dates Details Prevnar 13 Intramuscular Suspension Lot #: [id number] on: 26-Jul-2014 Influenza Lot #: [id number] on: 17-Jan-2015 Fluzone Quadrivalent 0.25 ML SUSP Lot #: [id number] on: 04-Feb-2016 Pneumovax 23 25 MCG/0.5ML Injection Injectable Lot #: [id number] on: 04-Feb-2016 Influenza, seasonal, injectable on: May-2018 Shingrix 50 MCG Intramuscular Suspension Reconstituted on: 16-Aug-2018 Shingrix 50 MCG Intramuscular Suspension Reconstituted on: 16-Oct-2018 Fluzone High-Dose 0.5 ML Intramuscular Suspension Prefilled Syringe Lot #: [id number] on: 09-Feb-2019 Tdap on: Mar-2019 Family History Name Dates Details Family history of myocardial infarction (V17.3, Z82.49) Comments: Paternal Relatives Status: Active Name Dates Details Family history of myocardial infarction (V17.3, Z82.49) Status: Active Name Dates Details Family history of cerebrovascular accident (CVA) (V17.1, Z82.3) Status: Active Name Dates Details Family history of myocardial infarction (V17.3, Z82.49) Status: Active Name Dates Details Family history of myocardial infarction (V17.3, Z82.49) Status: Active Family history of congestive heart failure (V17.49, Z82.49) Status: Active Social History Name Dates Details - Status: Name Dates Details Former smoker Vital Signs Date Test Result Details [id number] BP Systolic 131 mm[Hg] Status: Comments: Location: LUE; Position: Sitting BP Diastolic 65 mm[Hg] Status: Comments: Location: LUE; Position: Sitting Height 67 in Status: Weight 217.125 lb Status: Body Mass Index Calculated 34.01 kg/m2 Status: Body Surface Area Calculated 2.09 m2 Status: Temperature 98.3 f Status: Comments: Method: Oral Heart Rate 69 /min Status: :32 BP Systolic 183 mm[Hg] Status: Comments: Location: LUE; Position: Sitting BP Diastolic 62 mm[Hg] Status: Comments: Location: LUE; Position: Sitting Heart Rate 68 /min Status: :31 BP Systolic 183 mm[Hg] Status: Comments: Location: LUE; Position: Sitting BP Diastolic 64 mm[Hg] Status: Comments: Location: LUE; Position: Sitting Height 67 in Status: Weight 218.7 lb Status: Body Mass Index Calculated 34.25 kg/m2 Status: Body Surface Area Calculated 2.1 m2 Status: Temperature 98 f Status: Comments: Method: Oral Heart Rate 69 /min Status: Respiration Rate 16 /min Status: :04 BP Systolic 155 mm[Hg] Status: Comments: Location: LUE; Position: Sitting BP Diastolic 69 mm[Hg] Status: Comments: Location: LUE; Position: Sitting Heart Rate 60 /min Status: :00 BP Systolic 149 mm[Hg] Status: Comments: Location: LUE; Position: Sitting BP Diastolic 71 mm[Hg] Status: Comments: Location: LUE; Position: Sitting Height 67 in Status: Weight 218.5 lb Status: Body Mass Index Calculated 34.22 kg/m2 Status: Body Surface Area Calculated 2.1 m2 Status: Temperature 98.2 f Status: Comments: Method: Oral Heart Rate 68 /min Status: Respiration Rate 16 /min Status: O2 SAT 97 % Status: Comments: Source: RA Results Date Description Value Details :25 [QH] LIPID PANEL WITH REFLEX TO DIRECT LDL CHOLESTEROL, TOTAL 198 mg/dl (Normal) Range: <200 HDL CHOLESTEROL 49 mg/dl (Below low threshold) Range: >50 TRIGLYCERIDES 251 mg/dl (Above high threshold) Range: <150 Comments: If a non-fasting specimen was collected, considerrepeat triglyceride testing on a fasting specimenif clinically indicated. Nellie et al. J. of Clin. Lipidol. 2015;9:129-169. LDL-CHOLESTEROL 113 {MG/DL__CAL} (Above high threshold) Comments: Reference range: <100 Desirable range <100 mg/dL for primary prevention; <70 mg/dL for patients with CHD or diabetic patients with > or=2 CHD risk factors. LDL-C is now calculated using the Federico-Angel calculation, which is a validated novel method providing better accuracy than the Friedewald equation in the estimation of LDL-C. Federico CID et al. DOUGLAS. 2013;310(19): 4273-1260 (http:/ /ELVPHD.[employer] Reseach/faq/RAJ640) CHOL/HDLC RATIO 4.0 {CALC} (Normal) Range: <5.0 NON HDL CHOLESTEROL 149 {MG/DL__CAL} (Above high threshold) Range: <130 Comments: For patients with diabetes plus 1 major ASCVD risk factor, treating to a non-HDL-C goal of <100 mg/dL (LDL-C of <70 mg/dL) is considered a therapeutic option. :25 [[facility]] CMP W/EGFR GLUCOSE 84 mg/dl (Normal) Range: 65-99 Comments: Fasting reference interval UREA NITROGEN (BUN) 35 mg/dl (Above high threshold) Range: 7-25 CREATININE 4.10 mg/dl (Above high threshold) Range: 0.60-0.93 Comments: For patients >49 years of age, the reference limitfor Creatinine is approximately 13% higher for peopleidentified as -Japanese. eGFR NON- 10 {ML/MIN/1.7} (Below low threshold) Range: > OR=60 eGFR 12 {ML/MIN/1.7} (Below low threshold) Range: > OR=60 BUN/CREATININE RATIO 9 {CALC} (Normal) Range: 6-22 SODIUM 147 mmol/L (Above high threshold) Range: 135-146 POTASSIUM 4.1 mmol/L (Normal) Range: 3.5-5.3 CHLORIDE 113 mmol/L (Above high threshold) Range: 98-110 CARBON DIOXIDE 24 mmol/L (Normal) Range: 20-32 CALCIUM 8.4 mg/dl (Below low threshold) Range: 8.6-10.4 PROTEIN, TOTAL 5.9 g/dl (Below low threshold) Range: 6.1-8.1 ALBUMIN 3.2 g/dl (Below low threshold) Range: 3.6-5.1 GLOBULIN 2.7 {G/DL__CALC} (Normal) Range: 1.9-3.7 ALBUMIN/GLOBULIN RATIO 1.2 {CALC} (Normal) Range: 1.0-2.5 BILIRUBIN, TOTAL 0.3 mg/dl (Normal) Range: 0.2-1.2 ALKALINE PHSPHATASE 74 u/l (Normal) Range: 33-130 AST 13 u/l (Normal) Range: 10-35 ALT 10 u/l (Normal) Range: 629 :25 [[facility]] CBC (INCLUDES DIFF/PLT) WHITE BLOOD CELL COUNT 9.6 {Thousand/u} (Normal) Range: 3.8-10.8 RED BLOOD CELL COUNT 3.70 {Million/uL} (Below low threshold) Range: 3.80-5.10 HEMAGLOBIN 10.4 g/dl (Below low threshold) Range: 11.7-15.5 HEMATOCRIT 32.0 % (Below low threshold) Range: 35.0-45.0 MCV 86.5 fL (Normal) Range: 80.0-100.0 MCH 28.1 pg (Normal) Range: 27.0-33.0 MCHC 32.5 g/dl (Normal) Range: 32.0-36.0 RDW 14.3 % (Normal) Range: 11.0-15.0 PLATELET COUNT 53 {Thousand/u} (Below low threshold) Range: 140-400 MPV 12.8 fL (Above high threshold) Range: 7.5-12.5 ABSOLUTE NEUTROPHILS 5827 {cells/uL} (Normal) Range: 4747-4176 ABSOLUTE LYMPHOCYTES 2698 {cells/uL} (Normal) Range: 850-3900 ABSOLUTE MONOCYTES 595 {cells/uL} (Normal) Range: 200-950 ABSOLUTE EOSINOPHILS 403 {cells/uL} (Normal) Range: 15-500 ABSOLUTE BASOPHILS 77 {cells/uL} (Normal) Range: 0-200 NEUTROPHILS 60.7 % (Normal) LYMPHOCYTES 28.1 % (Normal) MONOCYTES 6.2 % (Normal) EOSINOPHILS 4.2 % (Normal) BASOPHILS 0.8 % (Normal) COMMENT(S) Comments: Giant platelets noted. :25 [Q] Platelet Estimation PLATELET ESTIMATION DECREASED (Abnormal) Range: ADEQUATE :25 [QL] HEMOGLOBIN A1c Comments: REPORT COMMENT:FASTING:YES HEMOGLOBIN A1c 6.5 {%_of_total} (Above high threshold) Range: <5.7 Comments: For someone without known diabetes, a hemoglobin G3xfnjwx of 6.5% or greater indicates that they may have diabetes and this should be confirmed with a follow-up test. For someone with known diabetes, a value <7% indicates that their diabetes is well controlled and a value greater than or equal to 7% indicates suboptimal control. A1c targets should be individualized based on duration of diabetes, age, comorbid conditions, and other considerations. Currently, no consensus exists regarding use ofhemoglobin A1c for diagnosis of diabetes for children. :03 [[facility]] CBC (INCLUDES DIFF/PLT) WHITE BLOOD CELL COUNT 11.4 {Thousand/u} (Above high threshold) Range: 3.8-10.8 RED BLOOD CELL COUNT 3.75 {Million/uL} (Below low threshold) Range: 3.80-5.10 HEMAGLOBIN 10.4 g/dl (Below low threshold) Range: 11.7-15.5 HEMATOCRIT 31.8 % (Below low threshold) Range: 35.0-45.0 MCV 84.8 fL (Normal) Range: 80.0-100.0 MCH 27.7 pg (Normal) Range: 27.0-33.0 MCHC 32.7 g/dl (Normal) Range: 32.0-36.0 RDW 14.0 % (Normal) Range: 11.0-15.0 PLATELET COUNT 57 {Thousand/u} (Below low threshold) Range: 140-400 MPV 12.5 fL (Normal) Range: 7.5-12.5 ABSOLUTE NEUTROPHILS 8037 {cells/uL} (Above high threshold) Range: 6636-0606 ABSOLUTE LYMPHOCYTES 2280 {cells/uL} (Normal) Range: 850-3900 ABSOLUTE MONOCYTES 684 {cells/uL} (Normal) Range: 200-950 ABSOLUTE EOSINOPHILS 331 {cells/uL} (Normal) Range: 15-500 ABSOLUTE BASOPHILS 68 {cells/uL} (Normal) Range: 0-200 NEUTROPHILS 70.5 % (Normal) LYMPHOCYTES 20.0 % (Normal) MONOCYTES 6.0 % (Normal) EOSINOPHILS 2.9 % (Normal) BASOPHILS 0.6 % (Normal) :03 [Q] Platelet Estimation Comments: REPORT COMMENT:FASTING:NO PLATELET ESTIMATION DECREASED (Abnormal) Range: ADEQUATE : [QLH] SED RATE BY MODIFIED WESTERGREN SED RATE BY MODIFIED WESTERGREN 117 mm/h (Above high threshold) Range: < OR=30 Comments: Verified by repeat analysis. : [QLH] DNA (DS) ANTIBODY DNA (DS) ANTIBODY <1 {IU/ml} (Normal) Comments: IU/mL Interpretation < or=4 Negative 5-9 Indeterminate > or=10 Positive [QL] IMMUNOFIXATION, SERUM INTERPRETATION Comments: IgG kappa monoclonal band present. : [QH] CYCLIC CITRULLINATED PEPTIDE (CCP) AB (IGG) CYCLIC CITRULLINATED PEPTIDE (CCP) AB (IGG) <16 {Units} (Normal) Comments: Reference RangeNegative: <20Weak Positive: 20-39Moderate Positive: 40-59Strong Positive: >59 [QLH] C-REACTIVE PROTEIN C-REACTIVE PROTEIN 17.2 mg/L (Above high threshold) Range: <8.0 : [QLH] IMMUNOGLOBULINS Comments: REPORT COMMENT:FASTING:YES IMMUNOGLOBULIN A 76 mg/dl (Normal) Range: 70-320 IMMUNOGLOBULIN G 888 mg/dl (Normal) Range: 600-1540 IMMUNOGLOBULIN M 172 mg/dl (Normal) Range: 50-300 [id number] Janet - BREAST ULTRASOUND BILATERAL BREAST ULTRASOUND BILATERAL - DIAG MAMM BILATERAL AKOSUA CAD DIGITALBILATERAL DIGITAL DIAGNOSTIC MAMMOGRAM 3D/2D WITH CAD: 06/02/2019CLINICAL: Palpable mass, right breast. Digital breast tomosynthesis was performed in addition to routine CC and MLO views. Current mammographic images were evaluated by either a [employer]kGod M-Vu or a [employer] ImageChecker CAD (computer aided detection system). Comparison is made to exams dated 09/02/2016 mammogram, 05/01/2018 mammogram, and 08/22/2015 mammogram - [facility]. There are scattered fibroglandular tissues in both breasts. There is an asymmetry in the right breast at 12 o'clock. No other significant masses, calcifications, or other findings are seen in either breast. INCOMPLETE: ADDITIONAL IMAGING EVALUATION NEEDEDBilateral ultrasound pending for additional evaluation. - BREAST ULTRASOUND BILATERALULTRASOUND OF BOTH BREASTS AND BOTH AXILLA: 06/02/2019Comparison is made to exams dated 09/02/2016 mammogram, 05/01/2018 mammogram, and 08/22/2015 mammogram - [facility] Real-time ultrasound of both breasts and both axilla and clinical breast exam were performed. The palpable mass felt by the patient is a 3 cm area of fat necrosis surrounded by bruising in the right breast at 12 o'clock. Patient states that her platelets are finally up to 55,000. No abnormalities were seen sonographically in the left breast or either axilla. IMPRESSION: PROBABLY BENIGN - FOLLOW-UP RECOMMENDEDThe 3 cm area in the right breast is probably benign. A follow-up mammogram and an ultrasound in 6 months is recommended to demonstrate stability. Savita Mccall M.D. dm/:06/02/2019 17:18:53 Plate Washer: Ingrid Mace , [facility]-letter sent: Short Term Follow Up Mammogram BI-RADS: 0 Incomplete: Additional Imaging Evaluation Needed Ultrasound BI-RADS: 3 Probably [email or web address] [id number] Janet - DIAG MAMM BILATERAL [place] CAD DIGITAL DIAG MAMM BILATERAL [place] CAD DIGITAL - DIAG MAMM BILATERAL [place] CAD DIGITALBILATERAL DIGITAL DIAGNOSTIC MAMMOGRAM 3D/2D WITH CAD: 06/02/2019CLINICAL: Palpable mass, right breast. Digital breast tomosynthesis was performed in addition to routine CC and MLO views. Current mammographic images were evaluated by either a DeskGod M-Vu or a [employer] ImageChecker CAD (computer aided detection system). Comparison is made to exams dated 09/02/2016 mammogram, 05/01/2018 mammogram, and 08/22/2015 mammogram - [facility]. There are scattered fibroglandular tissues in both breasts. There is an asymmetry in the right breast at 12 o'clock. No other significant masses, calcifications, or other findings are seen in either breast. INCOMPLETE: ADDITIONAL IMAGING EVALUATION NEEDEDBilateral ultrasound pending for additional evaluation. - BREAST ULTRASOUND BILATERALULTRASOUND OF BOTH BREASTS AND BOTH AXILLA: 06/02/2019Comparison is made to exams dated 09/02/2016 mammogram, 05/01/2018 mammogram, and 08/22/2015 mammogram - [facility] Real-time ultrasound of both breasts and both axilla and clinical breast exam were performed. The palpable mass felt by the patient is a 3 cm area of fat necrosis surrounded by bruising in the right breast at 12 o'clock. Patient states that her platelets are finally up to 55,000. No abnormalities were seen sonographically in the left breast or either axilla. IMPRESSION: PROBABLY BENIGN - FOLLOW-UP RECOMMENDEDThe 3 cm area in the right breast is probably benign. A follow-up mammogram and an ultrasound in 6 months is recommended to demonstrate stability. Savita Mccall M.D. dm/:06/02/2019 17:18:53 Plate Washer: Ingrid Mace , [facility]ITALletter sent: Short Term Follow Up Mammogram BI-RADS: 0 Incomplete: Additional Imaging Evaluation Needed Ultrasound BI-RADS: 3 Probably [email or web address] Plan of Care Name Dates Details Planned Observations Planned Goals not documented Planned Encounters Appointment; DEBRA GRULLON On: 14-Jun-2019 11:00 Appointment; HUGH RODRIGUEZ M.D. On: 14-Jun-2019 12:20 Appointment; BIMAL MIRANDA M.D. On: 11-Jul-2019 13:45 Appointment; Rajinder Seaman M.D. On: 02-Sep-2019 13:00 Instructions Name Dates Details Instructions not documented Encounters Appointment; JUNE FRIEDMAN M.D. Encounter Diagnosis: Problem not documented On: 24-Jul-2017 11:00 Appointment; REKHA BAILEY P.A. Encounter Diagnosis: Problem not documented On: 20-Aug-2017 13:00 Appointment; JUVENCIO LOMELI M.D. Encounter Diagnosis: Problem not documented On: 24-Aug-2017 10:40 Appointment; JUVENCIO LOMELI M.D. Encounter Diagnosis: Problem not documented On: 08-Sep-2017 14:00 Appointment; SHILPI CASAS M.D. Encounter Diagnosis: Problem not documented On: 14-Sep-2017 9:00 Appointment; HUGH RODRIGUEZ M.D. Encounter Diagnosis: Problem not documented On: 22-Sep-2017 12:20 Appointment; JUNE FRIEDMAN M.D. Encounter Diagnosis: Problem not documented On: 25-Sep-2017 10:00 Appointment; JUVENCIO LOMELI M.D. Encounter Diagnosis: Problem not documented On: 20-Oct-2017 14:20 Appointment; VASCULAR, SE Encounter Diagnosis: Problem not documented On: 29-Oct-2017 8:00 Appointment; VASCULAR, SE Encounter Diagnosis: Problem not documented On: 03-Nov-2017 9:30 Appointment; JUNE FRIEDMAN M.D. Encounter Diagnosis: Problem not documented On: 20-Nov-2017 9:00 Appointment; JUVENCIO LOMELI M.D. Encounter Diagnosis: Problem not documented On: 24-Nov-2017 14:20 Appointment; REKHA BAILEY P.A. Encounter Diagnosis: Problem not documented On: 10-Dec-2017 9:45 Appointment; JUNE FRIEDAMN M.D. Encounter Diagnosis: Problem not documented On: 11-Dec-2017 10:15 Appointment; JUVENCIO LOMELI M.D. Encounter Diagnosis: Problem not documented On: 30-Dec-2017 11:00 Appointment; HUGH RODRIGUEZ M.D. Encounter Diagnosis: Problem not documented On: 26-Mar-2018 13:40 Appointment; JUNE FRIEDMAN M.D. Encounter Diagnosis: Problem not documented On: 02-Apr-2018 9:30 Appointment; THANH WELLINGTON NP Encounter Diagnosis: Problem not documented On: 05-Apr-2018 13:30 Appointment; BIMAL MIRANDA M.D. Encounter Diagnosis: Problem not documented On: 15-Apr-2018 15:15 Appointment; SHILPI CASAS M.D. Encounter Diagnosis: Problem not documented On: 16-Apr-2018 13:30 Appointment; ROSSY JIMENEZ M.D. Encounter Diagnosis: Problem not documented On: 19-Apr-2018 14:45 Appointment; BIMAL MIRANDA M.D. Encounter Diagnosis: Problem not documented On: 26-Apr-2018 16:00 Appointment; VASCULAR, [place] Encounter Diagnosis: Problem not documented On: 05-May-2018 10:00 Appointment; VASCULAR, [place] Encounter Diagnosis: Problem not documented On: 05-May-2018 11:00 Appointment; BIMAL MIRANDA M.D. Encounter Diagnosis: Problem not documented On: 10-May-2018 10:30 Appointment; BIMAL MIRANDA M.D. Encounter Diagnosis: Problem not documented On: 21-May-2018 12:00 Appointment; ROSSY JIMENEZ M.D. Encounter Diagnosis: Problem not documented On: 25-May-2018 8:30 Appointment; JUNE FRIEDMAN M.D. Encounter Diagnosis: Problem not documented On: 11-Jun-2018 10:45 Appointment; BIMAL MIRANDA M.D. Encounter Diagnosis: Problem not documented On: 21-Jun-2018 14:15 Appointment; THANH WELLINGTON NP Encounter Diagnosis: Problem not documented On: 06-Jul-2018 12:30 Appointment; HUGH RODRIGUEZ M.D. Encounter Diagnosis: Problem not documented On: 06-Jul-2018 13:40 Appointment; JEREMY TABOR M.D. Encounter Diagnosis: Problem not documented On: 12-Jul-2018 8:45 Appointment; HUGH RODRIGUEZ M.D. Encounter Diagnosis: Problem not documented On: 20-Jul-2018 13:40 Appointment; BIMAL MIRANDA M.D. Encounter Diagnosis: Problem not documented On: 02-Aug-2018 13:45 Appointment; HUGH RODRIGUEZ M.D. Encounter Diagnosis: Problem not documented On: 25-Aug-2018 13:40 Appointment; JUNE FRIEDMAN M.D. Encounter Diagnosis: Problem not documented On: 27-Aug-2018 9:45 Appointment; ROSSY JIMENEZ M.D. Encounter Diagnosis: Problem not documented On: 01-Sep-2018 9:00 Appointment; BIMAL MIRANDA M.D. Encounter Diagnosis: Problem not documented On: 13-Sep-2018 13:30 Appointment; ROSSY JIMENEZ M.D. Encounter Diagnosis: Problem not documented On: 23-Sep-2018 13:45 Appointment; HUGH RODRIGUEZ M.D. Encounter Diagnosis: Problem not documented On: 24-Sep-2018 14:00 Appointment; BIMAL MIRANDA M.D. Encounter Diagnosis: Problem not documented On: 27-Oct-2018 13:15 Appointment; BIMAL MIRANDA M.D. Encounter Diagnosis: Problem not documented On: 12-Nov-2018 13:45 Appointment; BIMAL MIRANDA M.D. Encounter Diagnosis: Problem not documented On: 09-Dec-2018 14:45 Appointment; BIMAL MIRANDA M.D. Encounter Diagnosis: Problem not documented On: 29-Dec-2018 10:30 Appointment; REBA MEEK M.D. Encounter Diagnosis: Problem not documented On: 18-Jan-2019 10:45 Appointment; BIMAL MIRANDA M.D. Encounter Diagnosis: Problem not documented On: 09-Feb-2019 13:30 Appointment; JUNE FRIEDMAN M.D. Encounter Diagnosis: Problem not documented On: 04-Mar-2019 9:00 Appointment; HUGH RODRIGUEZ M.D. Encounter Diagnosis: Problem not documented On: 04-Mar-2019 12:20 Appointment; BIMAL MIRANDA M.D. Encounter Diagnosis: Problem not documented On: 23-Mar-2019 15:15 Appointment; VASCULAR, SE Encounter Diagnosis: Problem not documented On: 29-Mar-2019 13:00 Appointment; HUGH RODRIGUEZ M.D. Encounter Diagnosis: Problem not documented On: 29-Mar-2019 13:40 Appointment; VASCULAR, SE Encounter Diagnosis: Problem not documented On: 29-Mar-2019 14:00 Appointment; VASCULAR, SE Encounter Diagnosis: Problem not documented On: 29-Mar-2019 14:30 Appointment; BIMAL MIRANDA M.D. Encounter Diagnosis: Problem not documented On: 18-Apr-2019 14:30 Appointment; JUNE FRIEDMAN M.D. Encounter Diagnosis: Problem not documented On: 22-Apr-2019 10:00 Appointment; Rajinder Seaman M.D. Encounter Diagnosis: Problem not documented On: 22-Apr-2019 11:30 Appointment; BIMAL MIRANDA M.D. Encounter Diagnosis: Problem not documented On: 26-Apr-2019 9:00 Appointment; TONY HANNA M.D. Encounter Diagnosis: Problem not documented On: 28-Apr-2019 8:30 Appointment; Rajinder Seaman M.D. Encounter Diagnosis: Problem not documented On: 03-May-2019 14:45 Appointment; TONY HANNA M.D. Encounter Diagnosis: Problem not documented On: 19-May-2019 9:15 Appointment; BIMAL MIRANDA M.D. Encounter Diagnosis: Problem not documented On: 30-May-2019 13:45 Appointment; BIMAL MIRANDA M.D. Encounter Diagnosis: Problem not documented On: 02-Jun-2019 10:30 Appointment; Rajinder Seaman M.D. Encounter Diagnosis: Problem not documented On: 03-Jun-2019 13:15
[2019-06-11] MEDS ORDERED: ACETAMINOPHEN 325 MG TAB PO ONE (21:15)
[2019-06-11] MEDS ORDERED: SODIUM CHLORIDE 0.9% 1000ML 1,000 ML IV SCH (21:15)
[2019-06-11] MEDS ORDERED: CEFEPIME 2 GM/NS 0.9% 100 ML 100 ML IV SCH (21:15)
[2019-06-11] MEDS ORDERED: ALBUTEROL SULF 0.083% NEB SOLN 3 ML NEB NEB STA (21:18)
[2019-06-11] MEDS ORDERED: METHYLPREDNISOLONE SOD SUCC 125 MG/2ML VIAL IV ONE (21:30)
[2019-06-11] MEDS ORDERED: IPRATROPIUM BROMIDE 0.02% 2.5 ML NEB NEB ONE (21:30)
[2019-06-11 21:42] LABS: BASOPHILS # (AUTO) 0.1 (0.0-0.1); BASOPHILS % 0.7 % (0.0-1.0); EOSINOPHILS % 0.2 % (0.0-6.0); HEMATOCRIT 38.2 % (34.2-44.1); HEMOGLOBIN 12.3 g/dL (12.0-16.0); LYMPHOCYTES # (AUTO) 1.2 (1.0-3.2); LYMPHOCYTES % 9.9 % (18.0-39.1); MEAN CORPUSCULAR HGB CONC 32.2 g/dL (31-35); MEAN CORPUSCULAR VOLUME 86.8 fL (81-99); MONOCYTES % 8.3 % (4.4-11.3); NEUTROPHILS # (AUTO) 9.5 (2.1-6.9); NEUTROPHILS % 80.1 % (38.7-80.0); PLATELET COUNT 59 x10e3/uL (140-360); RED CELL DISTRIBUTION WIDTH 15.2 % (11.7-14.4)
[2019-06-11 22:04] LABS: ALBUMIN 2.9 g/dL (3.5-5.0); ALBUMIN/GLOBULIN RATIO 0.7 (0.8-2.0); ANION GAP 17.7 mmol/L (8-16); CALCIUM 9.4 mg/dL (8.4-10.2); CREATININE, SERUM 4.24 mg/dL (0.57-1.11); POTASSIUM 3.7 mmol/L (3.5-5.1)
[2019-06-11 22:10] LABS: CREATINE KINASE MB 3.7 ng/mL (0-5.0)
--- NOTE | 2019-06-11 22:30 | NUR ---
DR REYNAGA INFORMED THAT PATIENT POSITIVE FOR FLU. DROPLET ISOLATION ORDERED. DROPLET ISOLATION INTIATED AT THIS TIME.
[2019-06-11 22:50] LABS: COLOR,URINE YELLOW (YELLOW)
[2019-06-11 22:51] LABS: CLARITY,URINE CLEAR (CLEAR); LEUKOCYTE ESTERASE ,URINE NEGATIVE (NEGATIVE); NITRITE,URINE NEGATIVE (NEGATIVE)
[2019-06-11 22:52] LABS: BILIRUBIN,URINE NEGATIVE (NEGATIVE); KETONES,URINE 1+ (NEGATIVE); PROTEIN,URINE DIPSTICK 3+ (NEGATIVE); URINE UROBILINOGEN 0.2 mg/dL (0.2 - 1)
[2019-06-11 22:53] LABS: BACTERIA,URINE MANY /HPF; EPITHELIAL CELLS,URINE MODERATE /LPF; RBC,URINE >50 /HPF (0-5)
--- NOTE | 2019-06-11 22:57 | Diagnostic Imaging Report ---
EXAMINATION: CHEST SINGLE (PORTABLE) INDICATION: Cough, fever COMPARISON: Chest x-ray 05/03/2017 FINDINGS: TUBES and LINES: None. LUNGS: Normal lung volumes. Stable right upper lung calcified granulomas. Subtle bilateral infrahilar haziness. Prominent central pulmonary vasculature. PLEURA: No pleural effusion or pneumothorax. HEART AND MEDIASTINUM: Cardiac size is mildly enlarged. There are atherosclerotic calcifications within the aorta. BONES AND SOFT TISSUES: No acute osseous lesion. Soft tissues are unremarkable. UPPER ABDOMEN: No free air under the diaphragm. IMPRESSION: Mild cardiomegaly and pulmonary vascular congestion. Subtle bilateral infrahilar haziness could be due to atelectasis or pneumonia. Signed by: Ky Blunt DO on 06/11/2019 10:55 PM
[2019-06-12] VITALS (10 sets, daily range): BP systolic 121–163; BP diastolic 43–84
[2019-06-12] MEDS ORDERED: CEFEPIME HCL 2 GM/SOD CHL 0.9% 100 ML BAG IV SCH
[2019-06-12] MEDS ORDERED: SODIUM CHLORIDE FLUSH 10 ML SYR INJ PRN
[2019-06-12] MEDS ORDERED: IPRATROPIUM BROMIDE 0.02% 2.5 ML NEB NEB SCH
[2019-06-12] MEDS ORDERED: AZITHROMYCIN 500MG/SOD CHL 0.9% 250ML BAG IV SCH
[2019-06-12] MEDS ORDERED: ISOSORBIDE MONO30 MG PO (00:36)
[2019-06-12] MEDS ORDERED: CYMBALTA30 MG PO (00:43)
[2019-06-12] MEDS ORDERED: DULCOLAX5 MG PO (00:43)
[2019-06-12] MEDS ORDERED: NOVOLIN 70100 UNIT/3 SQ (00:43)
[2019-06-12] MEDS ORDERED: VENTOLIN HFA18 GM INH (00:43)
[2019-06-12] MEDS ORDERED: ZANTAC50 MG/2 ML PO (00:43)
[2019-06-12] MEDS ORDERED: LYRICA50 MG PO (00:48)
[2019-06-12] MEDS ORDERED: NASACORT16.9 ML (00:48)
[2019-06-12] MEDS ORDERED: LEVOCETIRIZINE D5 MG PO (00:48)
[2019-06-12] MEDS ORDERED: TYLENOL325 M2 PO (00:48)
[2019-06-12] MEDS ORDERED: PROMETHAZINE HC25 M1 PO (00:48)
[2019-06-12] MEDS ORDERED: HYDRALAZINE HCL25 MG PO (00:50)
[2019-06-12] MEDS ORDERED: ZETIA10 MG PO (00:50)
[2019-06-12] MEDS ORDERED: LASIX20 MG PO (00:50)
[2019-06-12] MEDS ORDERED: ZANTAC150 MG PO (00:52)
[2019-06-12] MEDS ORDERED: CAPSAICIN60 GM TOP (00:56)
[2019-06-12] MEDS: OSELTAMIVIR PHOSPHATE 75 MG CAP PO SCH ×2 (01:20→08:09)
[2019-06-12] MEDS: ALBUTEROL SULF 0.083% NEB SOLN 3 ML NEB NEB SCH ×2 (01:25→07:10)
[2019-06-12 07:38] LABS: BASOPHILS # (AUTO) 0.1 (0.0-0.1); BASOPHILS % 0.6 % (0.0-1.0); EOSINOPHILS # (AUTO) 0.2 (0.0-0.4); EOSINOPHILS % 2.1 % (0.0-6.0); HEMATOCRIT 36.5 % (34.2-44.1); HEMOGLOBIN 11.5 g/dL (12.0-16.0); LYMPHOCYTES # (AUTO) 0.6 (1.0-3.2); MEAN CORPUSCULAR HEMOGLOBIN 28.4 pg (28-32); MEAN CORPUSCULAR HGB CONC 31.5 g/dL (31-35); MEAN CORPUSCULAR VOLUME 90.1 fL (81-99); MONOCYTES # (AUTO) 0.1 (0.2-0.8); MONOCYTES % 1.3 % (4.4-11.3); NEUTROPHILS # (AUTO) 7.1 (2.1-6.9); NEUTROPHILS % 88.5 % (38.7-80.0); PLATELET COUNT 93 x10e3/uL (140-360); RED BLOOD COUNT 4.05 x10e6/uL (3.6-5.1)
[2019-06-12 07:58] LABS: ALBUMIN 2.4 g/dL (3.5-5.0); ALBUMIN/GLOBULIN RATIO 0.6 (0.8-2.0); ANION GAP 20.7 mmol/L (8-16); CALCIUM 8.9 mg/dL (8.4-10.2); CREATININE, SERUM 4.55 mg/dL (0.57-1.11); POTASSIUM 4.7 mmol/L (3.5-5.1)
[2019-06-12] MEDS: INSULIN REGULAR, HUMAN 100 UNIT/1 ML 3ML VIAL SQ SCH ×4 (08:09→21:00)
[2019-06-12] MEDS: CEFEPIME 2 GM/NS 0.9% 100 ML 100 ML IV SCH ×2 (08:37→20:59)
[2019-06-12] MEDS ORDERED: OSELTAMIVIR PHOSPHATE 75 MG CAP PO SCH (09:00)
[2019-06-12] MEDS ORDERED: ALBUTEROL/IPRATROPIUM 3 ML NEB NEB NR (09:45)
[2019-06-12] MEDS ORDERED: PROMETHAZINE HCL 25 MG TAB PO PRN (09:45)
[2019-06-12] MEDS ORDERED: TRAMADOL HCL 50 MG TAB PO PRN (09:45)
[2019-06-12] MEDS ORDERED: ACETAMINOPHEN 325 MG TAB PO SCH (10:30)
[2019-06-12] MEDS ORDERED: BISACODYL 5 MG TAB EC PO PRN (10:30)
[2019-06-12] MEDS ORDERED: PREDNISONE 20 MG TAB PO NR (10:30)
[2019-06-12] MEDS: ALBUTEROL/IPRATROPIUM 3 ML NEB NEB SCH ×2 (11:15→19:00)
[2019-06-12] MEDS: AMLODIPINE BESYLATE 5 MG TAB PO SCH ×2 (11:44→18:44)
[2019-06-12] MEDS: CARVEDILOL 3.125 MG TAB PO SCH ×2 (11:44→18:44)
[2019-06-12] MEDS: GUAIFENESIN 600 MG TAB PO SCH ×2 (11:45→18:45)
[2019-06-12] MEDS: ISOSORBIDE MONONITRATE 30 MG TAB CR PO SCH (11:45)
[2019-06-12] MEDS: LORATADINE 10 MG TAB PO SCH (11:45)
[2019-06-12] MEDS: HYDRALAZINE HCL 25 MG TAB PO SCH ×2 (11:45→18:45)
[2019-06-12] MEDS: HUMULIN 70/30 VIAL SQ SCH ×2 (11:51→17:01)
--- NOTE | 2019-06-12 12:19 | History and Physical ---
CHIEF COMPLAINT: Upper respiratory symptoms, shortness of breath, wheezing, fever. HISTORY OF PRESENT ILLNESS: A 74-year-old female with influenza A infection. The patient is otherwise stable. She is feeling much better with treatment. She did receive IV fluids. She has chronic COPD. She is not oxygen-dependent. The patient is otherwise stable at this time. She did not have any more fever. Temperature is 98. Blood pressure is slightly elevated. The patient is otherwise stable. PAST MEDICAL HISTORY: Diabetes type 2, on insulin, chronic COPD, hypertension, dyslipidemia, atherosclerotic heart disease without stent or previous intervention, and dyslipidemia. PAST SURGICAL HISTORY: Complete hysterectomy with appendectomy, cholecystectomy, brain herniation repair that was years ago. The patient is not knowledgeable on her previous craniotomy. SOCIAL HISTORY: The patient quit smoking years ago. She does not use alcohol. No regular drug use. ALLERGIES: TO . HOME MEDICATIONS: Extensively reviewed. PHYSICAL EXAMINATION: VITAL SIGNS: Temperature is 98, blood pressure 153/61, pulse rate 86, and respirations 20. GENERAL: The patient is not in acute distress. HEENT: Normocephalic and atraumatic. Anicteric. NECK: Supple grossly. PULMONARY: Diminished breath sounds with some coarses and wheezing. CARDIOVASCULAR: S1 and S2. Regular rate and rhythm. ABDOMEN: Soft and obese. EXTREMITIES: No cyanosis or edema. NEUROLOGIC: No gross focal deficit. LABORATORY DATA: Sodium is 140, potassium 4.7, chloride 112, bicarb 12, BUN 43, creatinine 4.6, and glucose 212. WBC 7.9, hemoglobin 11.5, hematocrit 36.5, and platelets is 93. IMPRESSION: 1. Influenza A contributing to the patient's symptoms, fever, low platelet. 2. Stable chronic obstructive pulmonary disease with chronic wheezing and rhonchi per the patient and consistent. The patient does not require oxygen. She is stable. Not in any respiratory failure. 3. Multiple baseline problems. PLAN: The patient did receive a total of 150 mg of Tamiflu. She has chronic kidney disease, most likely stage 4. She is not on dialysis. The patient has already received enough Tamiflu for now. Resume the patient's home medication with some adjustment. Continue with antibiotics treatment for atypical pneumonia. Chest x-ray showed some atelectasis without any consolidation, however, given the patient's COPD, we will cover for COPD exacerbation with antibiotics. The patient is otherwise stable. She is doing much better compared to 2-3 days ago and that if the patient continued to improve, she should be able to go home tomorrow. The patient remained on observation for now. MD PAMELA Marshall/LYLE /[id number]
--- NOTE | 2019-06-12 12:42 | NUR ---
Met with Dr. Kurtis Vann earlier this morning, and informed him that pt meets inpatient criteria. He stated he would assess and decide.
[2019-06-12 14:10] LABS: CREATINE KINASE MB 3.3 ng/mL (0-5.0)
[2019-06-12] MEDS: TRIAMCINOLONE ACETONIDE SCH (16:31)
[2019-06-12] MEDS: FAMOTIDINE 20 MG TAB PO SCH (16:37)
--- NOTE | 2019-06-12 20:16 | NUR ---
Notified Dr. Vann of gram positive cocci in clusters growing in 2 bottles. No new orders received.
[2019-06-12] MEDS: ATORVASTATIN 40 MG TAB PO SCH (20:59)
[2019-06-12] MEDS: PREGABALIN 50 MG CAP PO SCH (20:59)
[2019-06-12] MEDS: ACETAMINOPHEN 325 MG TAB PO PRN (21:10)
[2019-06-12] MEDS: ALBUTEROL/IPRATROPIUM 3 ML NEB NEB PRN (21:55)
[2019-06-12 23:10] LABS: CREATINE KINASE MB 3.3 ng/mL (0-5.0)
[2019-06-13] VITALS (8 sets, daily range): BP systolic 111–143; BP diastolic 48–88
[2019-06-13] MEDS: ALBUTEROL/IPRATROPIUM 3 ML NEB NEB SCH ×4 (00:30→19:47)
[2019-06-13] MEDS: ACETAMINOPHEN 325 MG TAB PO PRN (02:30)
[2019-06-13] MEDS: ALBUTEROL/IPRATROPIUM 3 ML NEB NEB PRN (05:05)
[2019-06-13 05:57] LABS: CALCIUM 8.1 mg/dL (8.4-10.2); CREATININE, SERUM 5.01 mg/dL (0.57-1.11)
[2019-06-13] MEDS: INSULIN REGULAR, HUMAN 100 UNIT/1 ML 3ML VIAL SQ SCH ×4 (07:30→20:01)
--- NOTE | 2019-06-13 08:00 | NUR ---
Patient ambulated to restroom with walker; sat up to bedside to eat breakfast. No distress noted.
[2019-06-13] MEDS ORDERED: SODIUM CHLORIDE 0.9% 1000ML 1,000 ML IV SCH (08:45)
[2019-06-13] MEDS: TRIAMCINOLONE ACETONIDE SCH ×2 (09:00→17:00)
[2019-06-13] MEDS ORDERED: AZITHROMYCIN 250 MG TAB PO SCH (09:00)
[2019-06-13] MEDS ORDERED: PREDNISONE 10 MG TAB PO SCH (09:00)
[2019-06-13] MEDS ORDERED: VANCOMYCIN 750MG/NS 150ML IVPB 150 ML IV SCH (09:00)
[2019-06-13] MEDS: HUMULIN 70/30 VIAL SQ SCH ×3 (09:01→17:05)
[2019-06-13] MEDS: FAMOTIDINE 20 MG TAB PO SCH ×2 (09:03→17:03)
[2019-06-13] MEDS: HYDRALAZINE HCL 25 MG TAB PO SCH ×2 (09:05→17:04)
[2019-06-13] MEDS: GUAIFENESIN 600 MG TAB PO SCH ×2 (09:06→17:05)
[2019-06-13] MEDS: DULOXETINE HCL 30 MG DELAYED RELEASE PO SCH (09:06)
[2019-06-13] MEDS: ISOSORBIDE MONONITRATE 30 MG TAB CR PO SCH (09:06)
[2019-06-13] MEDS: AMLODIPINE BESYLATE 5 MG TAB PO SCH ×2 (09:08→17:05)
[2019-06-13] MEDS: CARVEDILOL 3.125 MG TAB PO SCH ×2 (09:08→17:05)
[2019-06-13] MEDS: EZETIMIBE 10 MG TAB PO SCH (09:08)
[2019-06-13] MEDS: CEFEPIME 2 GM/NS 0.9% 100 ML 100 ML IV SCH ×2 (09:16→20:21)
[2019-06-13] MEDS: LORATADINE 10 MG TAB PO SCH (09:16)
[2019-06-13] MEDS: METHYLPREDNISOLONE SOD SUCC 40 MG/ML VIAL 1ML IV SCH ×2 (09:16→17:04)
--- NOTE | 2019-06-13 09:30 | NUR ---
Dr Silva to bedside
--- NOTE | 2019-06-13 09:39 | NUR ---
Dr Mir aware of consult
--- NOTE | 2019-06-13 16:17 | Consultation ---
DATE OF CONSULTATION: 06/13/2019 Pulmonary Consultation REASON FOR THE CONSULT: Cough and wheezing. HISTORY OF PRESENT ILLNESS: Ms. Knowles is a 74-year-old female. She presented to the emergency room with cough and wheezing. She is an ex-smoker. She has history of COPD, smoked for 50 years, one pack per day, quit four years ago. She reported that the shortness of breath was getting worse for last few days. It was initially intermittent and then became constant, associated with dry cough, and wheezing. It was relieved somewhat with the breathing treatment, but not much, so she decided to come to the emergency room. Her serologies were positive for influenza type A. REVIEW OF SYSTEMS: GENERAL: Denies any fever or chills. HEAD: Denies any head trauma. ENT: Denies any earaches. CVS: Denies any chest pain. RESPIRATORY: Shortness of breath. GI: Denies any nausea or vomiting. The rest of the review of systems are negative except as in HPI. PAST MEDICAL HISTORY: Diabetes, hypertension, chronic kidney disease. PAST SURGICAL HISTORY: Cholecystectomy, hysterectomy, appendectomy. FAMILY AND SOCIAL HISTORY: Ex-smoker, smoked for 50 years, one pack per day. PHYSICAL EXAMINATION: VITAL SIGNS: Temperature 98, pulse of 62, blood pressure 111/88, respiratory rate of 18, O2 saturation 100% on room air. HEENT: Head is atraumatic, normocephalic. NECK: Supple. CHEST: Wheezing bilaterally. HEART: S1, S2 audible. ABDOMEN: Soft. EXTREMITIES: No pedal edema. NEUROLOGIC: Awake and alert. No focal neurologic deficit. LABORATORY DATA: Reviewed. Creatinine is 5.01. Serologies were positive. Chest x-ray, which was done is showing cardiomegaly and some congestion. Unlikely that it is pneumonia. ASSESSMENT: Ms. Knowles is a 74-year-old female with influenza, reactive airway is current problem. 1. Chronic obstructive pulmonary disease exacerbation or reactive airways due to influenza. 2. Hypertension. 3. Chronic kidney disease. 4. [id number] fluid overload. PLAN: Agree with the Solu-Medrol nebulizer treatment. Also agree with the azithromycin and vancomycin. Oxygen as needed to keep the O2 saturation more than or equal to 92%. MD CHATO Cobb/HOLLYL /[id number]
--- NOTE | 2019-06-13 16:27 | Diagnostic Imaging Report ---
EXAM: CT Chest WITHOUT intravenous contrast 06/13/2019 8:39 AM INDICATION: Shortness of breath COMPARISON: Chest radiograph 06/11/2019 TECHNIQUE: Chest was scanned utilizing a multidetector helical scanner from the lung apex through the level of the adrenal glands without administration of IV contrast. Coronal and sagittal reformations were obtained. Routine protocol was performed. IV CONTRAST: None RADIATION DOSE: Total DLP: 541.8 mGy*cm. Dose modulation, iterative reconstruction, and/or weight based adjustment of the mA/kV was utilized to reduce the radiation dose to as low as reasonably achievable. COMPLICATIONS: None FINDINGS: LINES/ TUBES: None. LUNGS AND AIRWAYS: The central airways are patent. Bilateral upper lobe predominant centrilobular emphysema. No focal consolidation or pulmonary edema. Dependent left lower lobe subsegmental atelectasis. Subcentimeter right upper lobe calcified granuloma. No suspicious pulmonary nodules. PLEURA: The pleural spaces are clear. HEART AND MEDIASTINUM: The thyroid gland is normal. No supra clavicular, mediastinal, or hilar lymphadenopathy. No axillary, subpectoral, or internal mammary lymphadenopathy. The heart is not enlarged. No pericardial effusion. Atherosclerotic calcifications involve the aorta, coronary arteries, and proximal great vessels. UPPER ABDOMEN: Small hiatal hernia. No other acute findings. BONES: No acute osseous injury. No suspicious lytic or blastic lesions. Mild thoracic spine degenerative changes. SOFT TISSUES: Unremarkable. IMPRESSION: Bilateral centrilobular emphysema. No focal pneumonia or pulmonary edema. Signed by: Alex Castano MD on 06/13/2019 4:25 PM
[2019-06-13] MEDS ORDERED: OSELTAMIVIR PHOSPHATE 75 MG CAP PO SCH (17:00)
[2019-06-13] MEDS: OSELTAMIVIR PHOSPHATE 75 MG CAP PO SCH (17:15)
[2019-06-13] MEDS: SODIUM BICARBONATE 8.4% 150 ML in DEXTROSE 5% 1,000 ML IV SCH (18:59)
[2019-06-13] MEDS: ATORVASTATIN 40 MG TAB PO SCH (20:23)
[2019-06-13] MEDS: PREGABALIN 50 MG CAP PO SCH (20:23)
[2019-06-13] MEDS: DIAZEPAM 5 MG TAB PO PRN (20:23)
--- NOTE | 2019-06-13 22:29 | Consultation ---
DATE OF CONSULTATION: 06/13/2019 HISTORY OF PRESENT ILLNESS: This is a 74-year-old female clinic patient of ours with advanced kidney failure, CKD 5, they are contemplating by placing a fistula to initiate dialysis soon, presented to the hospital with flu. Currently lying supine. She feels miserable she says with cough, congestion, body aches and sore throat. She is currently on Tamiflu as well as empiric antibiotics. She is currently lying supine. Chest x-ray shows subtle bilateral infrahilar haziness may be due to atelectasis or pneumonia. LABORATORY TEST: Shows white count 7.9, hemoglobin 11.5, sodium 135, potassium 4, bicarb 15, creatinine 5, calcium 8.1. ALLERGIES: ANESTHETICS, CARBAMAZEPINE, CODEINE, DULOXETINE, IODINE, PHENOBARBITAL AND PHENYTOIN. CURRENT MEDICATIONS: The patient is on cefepime 1 g IV q.12, normal saline 100 mL an hour which I am going to stop right at the moment, vancomycin 1 g IV daily, which I am going to stop that is very high dose for her degree of kidney failure, albuterol, Atrovent nebulizer, amlodipine 5 mg daily, atorvastatin 80 mg at bedtime, Zithromax 250 mg p.o. daily, Tessalon Perles, carvedilol 3.125 b.i.d., Cymbalta 30 mg daily, Zetia 10 mg daily, guaifenesin 600 mg p.o. b.i.d., insulin, hydralazine 50 mg b.i.d., she is on isosorbide, Imdur 60 mg daily, loratadine 5 mg p.o. daily, methylprednisolone 40 mg IV q.8h., Lyrica 50 mg at bedtime, promethazine p.r.n. nausea. The patient had urine and throat cultures done, please see official report. PHYSICAL EXAMINATION: GENERAL: Awake, alert, oriented x3. Sitting up, appears ill, no apparent respiratory distress. VITAL SIGNS: Blood pressure 111/88, pulse is 81, afebrile, oxygen saturation 100% on 2 L nasal cannula. HEAD AND NECK: Cornea clear. Oral mucosa moist. LUNGS: Bilateral end-expiratory rhonchi. No rales. HEART: S1 and S2 audible. ABDOMEN: Soft, nontender. No apparent visceromegaly. Flanks full. Abdomen otherwise soft. EXTREMITIES: Lower extremity, no edema. SOCIAL HISTORY: The patient is ex-smoker, quit about 4 years ago and does not drink. 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 Her temporal artery biopsy shows it was negative for granulomatous inflammation, shows mild arterial sclerosis. IMPRESSION: Evidence of renal tubular acidosis on account of kidney failure, chronic kidney disease stage 5, underlying flu, chronic obstructive pulmonary disease exacerbation. PLAN: Plan on starting IV bicarbonate. I brought up the issue of initiating dialysis as the patient is very reluctant to start dialysis at this point in time. She also does not want a catheter placed. She wants a fistula placed and I explained to her that she needs dialysis and for that, we can wait for a fistula to be placed and then matured and wait another three months. Nevertheless right now, patient is quite irritated with flu-like symptoms. I am going to give her some rest. I am going to start IV bicarbonate, discontinue normal saline. Blood pressure controlled. Discontinue vancomycin. Agree with choice of other antibiotics. Agree with choice of Solu-Medrol and albuterol nebulizers. I will obtain clinic records standby and follow with you. MD HAYDE Hicks/LYLE /[id number]
[2019-06-13] MEDS: BENZONATATE 100 MG CAP PO PRN (23:18)
--- NOTE | 2019-06-13 23:19 | NUR ---
patient was awake, asking for some snacks, patient ate snacks , tolerated well, tessalon poncho PRN given, vitals checked, bed alarm is on, will continue to monitor.
--- NOTE | 2019-06-13 23:29 | Consultation ---
DATE OF CONSULTATION: 06/13/2019 REASON FOR CONSULTATION: Pneumonia. HISTORY OF PRESENT ILLNESS: This is a patient who is a 74-year-old white female, who has a history of COPD, who was diagnosed recently with influenza A in a patient who comes in with shortness of breath and cough. The patient is not oxygen dependent in the house. When she first came here, she was having a low fever of 98.1, short of breath, having cough. The patient was admitted on antibiotic. I was asked to see her. The patient is currently lying in bed. She says she is feeling better, but she continued to have coughing. Continued to have some shortness of breath also. Her cough is nonproductive. She does have history of diabetes mellitus type 2, on insulin with neuropathy, chronic COPD, hypertension, hyperlipidemia, atherosclerosis disease, hyperlipidemia. PAST SURGICAL HISTORY: Hysterectomy, appendectomy, cholecystectomy, brain herniation which was repaired surgically about years ago. SOCIAL HISTORY: There is no smoking, drug abuse, or alcohol abuse. She quit smoking seven years ago. ALLERGIES: NKA. FAMILY HISTORY: Hypertension. REVIEW OF SYSTEMS: At the present time, besides the shortness of breath and cough, she denies any. When she first came here, a blood pressure was ordered showing gram-positive cocci. Her white count was 11.8, today 7.9; hemoglobin 12, hematocrit 38, and platelets 93. Her influenza A was positive. The patient's chest x-ray showed cardiomegaly, bilateral infiltrates, haziness. CAT scan of the chest is still pending. MEDICATIONS: She is currently on: 1. DuoNeb. 2. Methylprednisolone. 3. Claritin. 4. Cefepime. 5. Azithromycin. 6. Tamiflu. 7. Atorvastatin. PHYSICAL EXAMINATION: GENERAL: She is currently alert, oriented, does not seem to be in any acute distress. VITAL SIGNS: Stable, currently afebrile. HEENT: She is not icteric. NECK: Supple. No JVD, no lymphadenopathy, no thyromegaly. CHEST: Clear bilateral. HEART: S1, S2. No S3, S4, or murmur. ABDOMEN: Soft. Bowel sounds present. No tenderness. No hepatosplenomegaly. EXTREMITIES: No edema. SKIN: No rash. CHEST: There is some wheezing noted. IMPRESSION: 1. Influenza A. Recommend Tamiflu 75 mg p.o. b.i.d. at least 7 days. 2. Superimposed pneumonia. She is on vancomycin, cefepime, azithromycin. Continue same. 3. Chronic obstructive pulmonary disease exacerbation. 4. History of diabetes. We will follow with you. Thank you for asking me to see this patient. Discussed with the patient. We will put the patient on droplet isolation. MD MAYNOR Ulloa/MODL /[id number]
[2019-06-14] VITALS (8 sets, daily range): BP systolic 105–143; BP diastolic 52–112
[2019-06-14] MEDS: ALBUTEROL/IPRATROPIUM 3 ML NEB NEB SCH ×4 (00:16→19:30)
[2019-06-14] MEDS: METHYLPREDNISOLONE SOD SUCC 40 MG/ML VIAL 1ML IV SCH ×3 (00:27→17:25)
[2019-06-14] MEDS: ACETAMINOPHEN 325 MG TAB PO PRN (04:16)
[2019-06-14 05:35] LABS: ALBUMIN 2.2 g/dL (3.5-5.0); ALBUMIN/GLOBULIN RATIO 0.6 (0.8-2.0); ANION GAP 17.4 mmol/L (8-16); CALCIUM 7.8 mg/dL (8.4-10.2); CREATININE, SERUM 5.58 mg/dL (0.57-1.11); POTASSIUM 4.4 mmol/L (3.5-5.1)
[2019-06-14] MEDS: INSULIN REGULAR, HUMAN 100 UNIT/1 ML 3ML VIAL SQ SCH ×4 (07:45→20:56)
[2019-06-14] MEDS: FAMOTIDINE 20 MG TAB PO SCH ×2 (07:55→15:43)
[2019-06-14] MEDS: DIAZEPAM 5 MG TAB PO PRN (07:55)
[2019-06-14] MEDS: HUMULIN 70/30 VIAL SQ SCH ×3 (08:13→17:29)
[2019-06-14] MEDS: SODIUM BICARBONATE 8.4% 150 ML in DEXTROSE 5% 1,000 ML IV SCH (08:41)
[2019-06-14] MEDS: TRIAMCINOLONE ACETONIDE SCH ×2 (09:00→17:00)
[2019-06-14] MEDS ORDERED: CEFEPIME HCL 1 GM VIAL IV SCH (09:00)
[2019-06-14] MEDS ORDERED: CEFEPIME 1GM/NS 0.9% 50 ML 50 ML IV SCH (09:00)
[2019-06-14] MEDS: LORATADINE 10 MG TAB PO SCH (09:23)
[2019-06-14] MEDS: ISOSORBIDE MONONITRATE 30 MG TAB CR PO SCH (09:24)
[2019-06-14] MEDS: HYDRALAZINE HCL 25 MG TAB PO SCH ×2 (09:24→17:48)
[2019-06-14] MEDS: GUAIFENESIN 600 MG TAB PO SCH ×2 (09:24→17:28)
[2019-06-14] MEDS: EZETIMIBE 10 MG TAB PO SCH (09:24)
[2019-06-14] MEDS: CARVEDILOL 3.125 MG TAB PO SCH ×2 (09:25→17:48)
[2019-06-14] MEDS: DULOXETINE HCL 30 MG DELAYED RELEASE PO SCH (09:25)
[2019-06-14] MEDS: AMLODIPINE BESYLATE 5 MG TAB PO SCH ×3 (09:25→17:43)
[2019-06-14] MEDS: CEFTRIAXONE SOD 1 GM/NS 50 ML 50 ML IV SCH ×2 (09:28→09:40)
[2019-06-14] MEDS: AZITHROMYCIN 500MG/NS 250 ML 250 ML IV SCH (09:40)
[2019-06-14] MEDS ORDERED: DAPTOMYCIN 500mg 10ML 500 MG in SODIUM CHLORIDE 0.9% 100 ML IV SCH (10:30)
[2019-06-14 11:04] LABS: INR 0.95; PROTHROMBIN TIME 13.2 seconds (11.9-14.5)
[2019-06-14 11:05] LABS: PARTIAL THROMBOPLASTIN TIME 30.9 seconds (23.8-35.5)
--- NOTE | 2019-06-14 14:07 | NUR ---
Called [facility] scheduled hemodialysis for 10:00 am in the morning, I [facility] aware made aware patient will have tunneled hemodialysis catheter placed on 06-15-19 scheduled for reconciler.
[2019-06-14] MEDS: SODIUM BICARBONATE 650 MG TAB PO SCH ×2 (15:43→21:07)
[2019-06-14] MEDS: OSELTAMIVIR PHOSPHATE 75 MG CAP PO SCH (17:28)
[2019-06-14] MEDS: ATORVASTATIN 40 MG TAB PO SCH (21:07)
[2019-06-14] MEDS: PREGABALIN 50 MG CAP PO SCH (21:07)
--- NOTE | 2019-06-14 21:52 | NUR ---
Patient received sitting up in bed. at bedside. AAO x 4. Patient had no complaints of pain or discomfort. Respirations even and non-labored on 3L NC. Fall precautions implemented. Patient instructed to call for assistance when needed. Call light within reach.
--- NOTE | 2019-06-14 22:21 | NUR ---
Patient informed of upcoming dialysis procedure and NPO status after midnight. Patient verbalized understanding. Patient voluntarily signed " Disclosure and Consent " form.
[2019-06-15] VITALS (13 sets, daily range): BP systolic 135–157; BP diastolic 47–81
[2019-06-15] MEDS: ACETAMINOPHEN 325 MG TAB PO PRN (00:55)
[2019-06-15] MEDS: ALBUTEROL/IPRATROPIUM 3 ML NEB NEB SCH ×5 (01:10→21:45)
[2019-06-15] MEDS: DIAZEPAM 5 MG TAB PO PRN ×2 (01:22→17:10)
[2019-06-15 05:55] LABS: CALCIUM 7.5 mg/dL (8.4-10.2); CREATININE, SERUM 6.36 mg/dL (0.57-1.11)
--- NOTE | 2019-06-15 06:14 | NUR ---
Message left for on his office cell phone regarding pt assist to sitting position on floor while pt was ambulating with walker, O2, and assistance from Sonja DEXTER. Currently awaiting his return. Refer to assigned RNs documentation for further information.
--- NOTE | 2019-06-15 06:35 | NUR ---
Jonelle DEXTER. left message on pts husbands cell phone notifying him to return call. (In order to report pt fall.) Currently awaiting his return call.
--- NOTE | 2019-06-15 07:00 | NUR ---
Patient resting comfortably. Shift report given to oncoming nurse.
[2019-06-15] MEDS: INSULIN REGULAR, HUMAN 100 UNIT/1 ML 3ML VIAL SQ SCH ×4 (07:30→21:00)
[2019-06-15] MEDS: FAMOTIDINE 20 MG TAB PO SCH ×2 (07:30→16:50)
[2019-06-15] MEDS: HUMULIN 70/30 VIAL SQ SCH ×3 (07:39→16:58)
[2019-06-15] MEDS: TRIAMCINOLONE ACETONIDE SCH ×2 (08:38→16:51)
[2019-06-15] MEDS: DULOXETINE HCL 30 MG DELAYED RELEASE PO SCH (09:00)
[2019-06-15] MEDS: AMLODIPINE BESYLATE 5 MG TAB PO SCH ×2 (09:00→16:53)
[2019-06-15] MEDS: ISOSORBIDE MONONITRATE 30 MG TAB CR PO SCH (09:00)
[2019-06-15] MEDS: GUAIFENESIN 600 MG TAB PO SCH ×2 (09:00→16:53)
[2019-06-15] MEDS: SODIUM BICARBONATE 650 MG TAB PO SCH ×3 (09:00→23:57)
[2019-06-15] MEDS: LORATADINE 10 MG TAB PO SCH (09:00)
[2019-06-15] MEDS: CARVEDILOL 3.125 MG TAB PO SCH ×2 (09:00→16:53)
[2019-06-15] MEDS: HYDRALAZINE HCL 25 MG TAB PO SCH ×2 (09:00→16:51)
[2019-06-15] MEDS: EZETIMIBE 10 MG TAB PO SCH (09:00)
[2019-06-15] MEDS: CEFTRIAXONE SOD 1 GM/NS 50 ML 50 ML IV SCH (09:25)
[2019-06-15] MEDS: METHYLPREDNISOLONE SOD SUCC 40 MG/ML VIAL 1ML IV SCH ×2 (09:25→16:50)
[2019-06-15] MEDS: AZITHROMYCIN 500MG/NS 250 ML 250 ML IV SCH (09:32)
[2019-06-15] MEDS ORDERED: LIDOCAINE HCL 1% LOCAL INJ 20 ML VIAL ONE (12:52)
[2019-06-15] MEDS ORDERED: HEPARIN SOD (PORCINE) 1000 UNIT/ML SDV ONE (12:53)
[2019-06-15] MEDS ORDERED: FENTANYL CITRATE/PF 100MCG/2 ML INJ ONE (13:35)
[2019-06-15] MEDS ORDERED: MIDAZOLAM HCL 2 MG/2 ML VIAL ONE (13:37)
--- NOTE | 2019-06-15 15:35 | NUR ---
informed Dr. Vann patient with increased pain in sacral area, states " he will be in to evaluate patient". Will continue to monitor
--- NOTE | 2019-06-15 16:11 | Diagnostic Imaging Report ---
PROCEDURE: Tunneled dialysis catheter placement Procedural Personnel Attending physician(s): Alex Castano MD Fellow physician(s): None Resident physician(s): None Advanced practice provider(s): None Pre-procedure diagnosis: Acute kidney injury Post-procedure diagnosis: Same Indication (QCDR): Performance of hemodialysis Additional clinical history: None Complications: No immediate complications. IMPRESSION: Insertion of right-sided tunneled dialysis catheter, with tip in the expected location of the cavoatrial junction. Plan: The catheter may be used immediately. PROCEDURE SUMMARY: - Venous access with ultrasound guidance - Tunneled dialysis catheter insertion with fluoroscopic guidance - Additional procedure(s): None PROCEDURE DETAILS: Pre-procedure Consent: Informed consent for the procedure including risks, benefits and alternatives was obtained and time-out was performed prior to the procedure. Preparation (MIPS): The site was prepared and draped using all elements of maximal sterile barrier technique including sterile gloves, sterile gown, cap, mask, large sterile sheet, sterile ultrasound probe cover, hand hygiene and cutaneous antisepsis with 2% chlorhexidine. Medical reason for site preparation exception (MIPS): Not applicable Anesthesia/sedation Level of anesthesia/sedation: Moderate sedation (conscious sedation) Anesthesia/sedation administered by: Independent trained observer under attending supervision with continuous monitoring of the patient?s level of consciousness and physiologic status Total intra-service sedation time (minutes): 30 Access Local anesthesia was administered. The vessel was sonographically evaluated and determined to be patent. Real time ultrasound was used to visualize needle entry into the vessel and a permanent image was stored. Vein accessed (QCDR): Internal jugular vein Internal jugular vein patency (QCDR): Patent or otherwise accessible on at least one side Access technique: Micropuncture set with 21 gauge needle Catheter placement An incision was made near the venous access site and the catheter was tunneled subcutaneously to the venous access site. The catheter was advanced via a peel-away sheath into the vein under fluoroscopic guidance. Catheter tip location was fluoroscopically verified and a permanent image was stored. Catheter placed: [employer] Catheter cuff-to-tip length (cm): 19 Catheter flush: Heparin (1000 units/mL) Closure A sterile dressing was applied. Access site closure technique: Tissue adhesive Catheter securement technique: Non-absorbable suture Contrast Contrast agent: None Contrast volume (mL): N.A Radiation Dose Fluoroscopy time (minutes): 0.0 Reference air kerma (mGy): 0.5 Additional Details Additional description of procedure: None Equipment details: None Specimens removed: None Estimated blood loss (mL): Less than 10 Standardized report: [id number] Attestation Signer name: Alex Castano MD I attest that I was present for the entire procedure. I reviewed the stored images and agree with the report as written. Signed by: Alex Castano MD on 06/15/2019 4:08 PM
[2019-06-15] MEDS: OSELTAMIVIR PHOSPHATE 75 MG CAP PO SCH (17:00)
--- NOTE | 2019-06-15 19:11 | Diagnostic Imaging Report ---
Radiographs of the sacrum Radiographs of the lumbar spine 4 views minimal HISTORY: Sacral pain. Back pain. COMPARISON: None available. FINDINGS: Bones: No acute displaced fracture. Osseous alignment is within normal limits. Joints: Scattered degenerative change about the sacrum and lumbar spine. No osseous erosion Soft tissues: Scattered vascular calcification IMPRESSION: Scattered degenerative change about the sacrum and lumbar spine. No osseous erosion Signed by: Dr. Alec Cottrell M.D. on 06/15/2019 7:09 PM
[2019-06-15] MEDS ORDERED: SODIUM CHLORIDE 0.9% 1000ML 2,000 ML ONE (19:58)
[2019-06-15] MEDS ORDERED: SODIUM CHLORIDE 0.9% 250ML 500 ML IV PRN (20:45)
[2019-06-15] MEDS ORDERED: MANNITOL 25% 12.5GM/50 ML VIAL IV PRN (20:45)
[2019-06-15] MEDS ORDERED: ALBUMIN 25% 12.5GM 0.25 GM/ML BTL IV PRN (20:45)
[2019-06-15] MEDS: HEPARIN SOD (PORCINE) 1000 UNIT/ML SDV IV PRN (22:00)
[2019-06-15] MEDS: SODIUM CHLORIDE 0.9% 1000ML 2,000 ML IV PRN (22:15)
[2019-06-15] MEDS: ATORVASTATIN 40 MG TAB PO SCH (23:57)
[2019-06-15] MEDS: PREGABALIN 50 MG CAP PO SCH (23:57)
[2019-06-16] VITALS (8 sets, daily range): BP systolic 120–204; BP diastolic 51–86
[2019-06-16] MEDS: ALBUTEROL/IPRATROPIUM 3 ML NEB NEB SCH ×3 (00:20→19:47)
[2019-06-16] MEDS: OSELTAMIVIR PHOSPHATE 75 MG CAP PO SCH ×2 (00:47→16:44)
--- NOTE | 2019-06-16 00:48 | NUR ---
patient arrived to the floor via bed, transfer from [facility], patient awake alert, remain on droplet positive for flu A
[2019-06-16] MEDS: METHYLPREDNISOLONE SOD SUCC 40 MG/ML VIAL 1ML IV SCH (07:27)
[2019-06-16] MEDS: FAMOTIDINE 20 MG TAB PO SCH ×2 (07:27→16:42)
[2019-06-16] MEDS: TRIAMCINOLONE ACETONIDE SCH ×2 (07:28→16:43)
[2019-06-16] MEDS: HYDRALAZINE HCL 25 MG TAB PO SCH ×2 (07:28→16:44)
[2019-06-16] MEDS: CARVEDILOL 3.125 MG TAB PO SCH ×2 (07:28→16:44)
[2019-06-16] MEDS: DULOXETINE HCL 30 MG DELAYED RELEASE PO SCH (07:28)
[2019-06-16] MEDS: LORATADINE 10 MG TAB PO SCH (07:28)
[2019-06-16] MEDS: SODIUM BICARBONATE 650 MG TAB PO SCH ×3 (07:28→20:40)
[2019-06-16] MEDS: AMLODIPINE BESYLATE 5 MG TAB PO SCH ×2 (07:28→16:44)
[2019-06-16] MEDS: ISOSORBIDE MONONITRATE 30 MG TAB CR PO SCH (07:28)
[2019-06-16] MEDS: GUAIFENESIN 600 MG TAB PO SCH ×2 (07:28→16:44)
[2019-06-16] MEDS: EZETIMIBE 10 MG TAB PO SCH (07:29)
[2019-06-16] MEDS: INSULIN REGULAR, HUMAN 100 UNIT/1 ML 3ML VIAL SQ SCH ×4 (07:30→20:33)
[2019-06-16] MEDS: ALBUTEROL/IPRATROPIUM 3 ML NEB NEB PRN (07:34)
[2019-06-16] MEDS: HUMULIN 70/30 VIAL SQ SCH ×3 (08:00→17:12)
[2019-06-16] MEDS: CEFTRIAXONE SOD 1 GM/NS 50 ML 50 ML IV SCH (09:00)
[2019-06-16] MEDS: DIAZEPAM 5 MG TAB PO PRN (09:40)
[2019-06-16] MEDS: AZITHROMYCIN 500MG/NS 250 ML 250 ML IV SCH (10:00)
[2019-06-16] MEDS ORDERED: MANNITOL 25% 12.5GM/50 ML VIAL IV PRN (10:00)
[2019-06-16] MEDS ORDERED: HEPARIN SOD (PORCINE) 1000 UNIT/ML SDV IV PRN (10:00)
[2019-06-16] MEDS ORDERED: SODIUM CHLORIDE 0.9% 1000ML 2,000 ML IV PRN (10:00)
[2019-06-16] MEDS ORDERED: ALBUMIN 25% 12.5GM 0.25 GM/ML BTL IV PRN (10:00)
[2019-06-16] MEDS ORDERED: SODIUM CHLORIDE 0.9% 250ML 500 ML IV PRN (10:00)
[2019-06-16 10:04] LABS: BASOPHILS % 0.1 % (0.0-1.0); HEMATOCRIT 30.7 % (34.2-44.1); HEMOGLOBIN 10.1 g/dL (12.0-16.0); LYMPHOCYTES # (AUTO) 0.8 (1.0-3.2); MEAN CORPUSCULAR HEMOGLOBIN 27.3 pg (28-32); MEAN CORPUSCULAR HGB CONC 32.9 g/dL (31-35); MONOCYTES # (AUTO) 0.5 (0.2-0.8); MONOCYTES % 6.1 % (4.4-11.3); NEUTROPHILS % 84.1 % (38.7-80.0); PLATELET COUNT 204 x10e3/uL (140-360); RED CELL DISTRIBUTION WIDTH 14.9 % (11.7-14.4)
[2019-06-16 10:22] LABS: ANION GAP 16.7 mmol/L (8-16); CALCIUM 7.8 mg/dL (8.4-10.2); POTASSIUM 3.7 mmol/L (3.5-5.1)
--- NOTE | 2019-06-16 11:39 | NUR ---
RECEIVED REPORT ON PATIENT- CONTINUING CARE. PATIENT IS ALERT AND IN STABLE CONDITION WITH NO S/S OF RESPIRATORY DISTRESS. NO PAIN VOICED. PATIENT IS RECEIVING DIALYSIS AT THIS POINT. PRESENT IN ROOM. TELE APPLIED. BED ALARM APPLIED. CALL LIGHT IS WITHIN REACH, PATIENT INSTRUCTED TO CALL FOR ASSISTANCE NEEDED.
--- NOTE | 2019-06-16 11:49 | NUR ---
patient agitated and unhappy with me. care turned over to derian DEXTER
--- NOTE | 2019-06-16 11:58 | NUR ---
SPOKE WITH PT AND ABOUT DIALYSIS CHAIR SET UP, SIGNED CHOICE FOR [facility], FILED IN CHART AND FAXED CLINICALS TO INTAKE AT [phone]
--- NOTE | 2019-06-16 16:08 | NUR ---
SPOKE WITH MYRNA AT [facility] ADMISSION LINE AND HE STATES THAT HE HAS RECEIVED ALL DOCUMENT, WILL NEED THE UPDATED HEP PANEL RESULTS AFTER WE GET THEM AND WILL LET ME KNOW WHEN HE IS ABLE TO GET THE CHAIR.
[2019-06-16] MEDS ORDERED: SODIUM CHLORIDE 0.9% 250ML 250 ML ONE (16:57)
[2019-06-16] MEDS: ACETAMINOPHEN 325 MG TAB PO PRN (17:57)
--- NOTE | 2019-06-16 19:05 | NUR ---
PATIENT IN STABLE CONDITION WITH NO S/S OF RESPIRATORY DISTRESS- TYLENOL GIVEN TO PATIENT FOR BACK PAIN. PATIENT HAD 2 LITERS REMOVED FROM DIALYSIS TOMORROW; PATIENT WILL RECEIVE DIALYSIS TOMORROW. BED ALARM APPLIED; THREE RAILS RAISED. PRESENT IN ROOM. CALL LIGHT IS WITHIN REACH, PATIENT INSTRUCTED TO CALL FOR ASSISTANCE NEEDED. BEDSIDE SHIFT REPORT GIVEN TO ONCOMING NURSE.
--- NOTE | 2019-06-16 19:17 | NUR ---
bedside shift report recv'd from Maria Antonia RN, patient seen awake alert, s/p hemodialysis tx today, 2 liters reported removed, skin warm dry, right chest CVC dressing C/D/I, left midline patent flushes well, pending hemodialysis in tomorrow 06/17/19, no family at bedside, patient refusing to place oxygen nasal cannula on face, stating "I dont need it", advised patient that we will take first shift vital w/o O2 support then reevaluate need for oxygen therapy, pt okay with that, bed alarm in place for safety
[2019-06-16] MEDS: DEXTROSE 50% SYRINGE 50 ML IV PRN (20:34)
[2019-06-16] MEDS: ATORVASTATIN 40 MG TAB PO SCH (20:40)
[2019-06-16] MEDS: PREGABALIN 50 MG CAP PO SCH (20:40)
[2019-06-17] VITALS (11 sets, daily range): BP systolic 156–197; BP diastolic 63–86
[2019-06-17] MEDS: ALBUTEROL/IPRATROPIUM 3 ML NEB NEB SCH ×4 (01:15→19:42)
[2019-06-17] MEDS: GUAIFENESIN 600 MG TAB PO SCH ×2 (04:56→18:11)
[2019-06-17] MEDS: BENZONATATE 100 MG CAP PO PRN (04:57)
[2019-06-17] MEDS: ACETAMINOPHEN 325 MG TAB PO PRN (05:00)
[2019-06-17 05:51] LABS: HEMATOCRIT 34.3 % (34.2-44.1); HEMOGLOBIN 11.1 g/dL (12.0-16.0); MEAN CORPUSCULAR HEMOGLOBIN 27.5 pg (28-32); MEAN CORPUSCULAR HGB CONC 32.4 g/dL (31-35); MEAN CORPUSCULAR VOLUME 85.1 fL (81-99); PLATELET COUNT 225 x10e3/uL (140-360); RED BLOOD COUNT 4.03 x10e6/uL (3.6-5.1); RED CELL DISTRIBUTION WIDTH 14.9 % (11.7-14.4)
[2019-06-17 06:12] LABS: ANION GAP 16.1 mmol/L (8-16); CREATININE, SERUM 3.41 mg/dL (0.57-1.11); POTASSIUM 3.1 mmol/L (3.5-5.1)
--- NOTE | 2019-06-17 06:28 | NUR ---
lab reported am lab blood sugar 46, and PATRICIA Phillips MD notified via phone, patient POC glucose 54, patient seen lethargic, able to open eyes but goes back to sleep, D50 PRN given IV tolerated well, recheck BS per protocol Addendum: 06/17/19 at 0646 by VENTURA TRUONG RN MD Calhoun notified via telephone
[2019-06-17] MEDS: DEXTROSE 50% SYRINGE 50 ML IV PRN ×2 (06:31→11:20)
--- NOTE | 2019-06-17 06:44 | NUR ---
recheck blood sugar 137, MD pending callback to relay abnormal labs NA 147, blood sugar was 46 per lab, K+ 3.1
--- NOTE | 2019-06-17 07:04 | NUR ---
bedside shift report given verbally to derian, patient awake alert denies pain , pending hemodialysis today endorsed to F/U and report abnormal labs this am, K+3.1, NA level 147 to MD Calhoun nephtodd patient hypoglycemia(resolved), made aware that patient was given D50 IV, blood sugar rechecked prior to her arrival on the floor, MD Calhoun paged to relay abnormal lab, no call back yet, orders pending
[2019-06-17] MEDS: INSULIN REGULAR, HUMAN 100 UNIT/1 ML 3ML VIAL SQ SCH ×4 (07:30→21:00)
[2019-06-17] MEDS: HUMULIN 70/30 VIAL SQ SCH (08:00)
[2019-06-17] MEDS: CEFTRIAXONE SOD 1 GM/NS 50 ML 50 ML IV SCH (08:18)
[2019-06-17] MEDS: FAMOTIDINE 20 MG TAB PO SCH ×2 (08:18→15:34)
[2019-06-17] MEDS: TRIAMCINOLONE ACETONIDE SCH ×2 (08:18→17:00)
[2019-06-17] MEDS: CARVEDILOL 3.125 MG TAB PO SCH ×2 (08:19→17:00)
[2019-06-17] MEDS: AMLODIPINE BESYLATE 5 MG TAB PO SCH ×2 (08:19→17:00)
[2019-06-17] MEDS: HYDRALAZINE HCL 25 MG TAB PO SCH ×2 (08:19→17:00)
[2019-06-17] MEDS: SODIUM BICARBONATE 650 MG TAB PO SCH ×3 (08:19→22:58)
[2019-06-17] MEDS: DULOXETINE HCL 30 MG DELAYED RELEASE PO SCH (08:19)
[2019-06-17] MEDS: ISOSORBIDE MONONITRATE 30 MG TAB CR PO SCH (08:19)
[2019-06-17] MEDS: LORATADINE 10 MG TAB PO SCH (08:19)
[2019-06-17] MEDS: EZETIMIBE 10 MG TAB PO SCH (08:19)
--- NOTE | 2019-06-17 08:55 | NUR ---
RECEIVED CHAIR FOR DIALYSIS AT [address], [id number] BY THE [facility] [phone], IT WILL BE FOR THURSDAY, THURSDAY AND FRIDAYS AT 1210PM. FILED IN CHART AND GAVE COPIES TO PT IN ROOM.
[2019-06-17] MEDS: AZITHROMYCIN 500MG/NS 250 ML 250 ML IV SCH (09:46)
--- NOTE | 2019-06-17 11:20 | NUR ---
DR. LEONARDO ON THE UNIT- PATIENT IS LETHARGIC BUT REMAINS RESPONSIVE TO QUESTIONS . BLOOD SUGAR IS CURRENTLY 94, DR. LEONARDO STATED TO ADMINISTER D50 TO PATIENT. D50 ADMINISTERED.
[2019-06-17] MEDS ORDERED: HUMULIN 70/30 VIAL SQ SCH ×2 (11:30→16:30)
--- NOTE | 2019-06-17 15:32 | NUR ---
16F GRIFFITH PLACED AT 1530 FOR URINE RETENTION- ORDER RECEIVED BY DR. OGDEN. 2 RN'S PRESENT UPON INSERTION OF GRIFFITH. PATIENT IN STABLE CONDITION WITH NO S/S OF RESPIRATORY DISTRESS AND TURNED TO HER SIDE. NO PAIN VOICED. BED ALARM APPLIED. CALL LIGHT IS WITHIN REACH- PATIENT INSTRUCTED TO CALL FOR ASSISTANCE NEEDED.
--- NOTE | 2019-06-17 19:40 | NUR ---
SBAR report received at bedside from [facility] Em, patient seen sleeping, no distress noted, skin warm dry, histotechnologist supervisor in room, starting dialysis, informed by histotechnologist supervisor that patient needs hep b antigen lab drawn, request carried out, order placed per protocol, informed patient had no hypoglycemia noted, overton newly placed for retention, no UA ordered, will continue to monitor patient, tamiflu medication will be given after dialysis tx
--- NOTE | 2019-06-17 19:42 | NUR ---
PATIENT SLEEPING AND IS IN STABLE CONDITION WITH NO S/S OF RESPIRATORY DISTRESS. NO PAIN INDICATED. GRIFFITH INTACT AND DRAINING; URINE IS YELLOW AND CLEAR. TELEMETRY APPLIED. PATIENT TURNED TO HER SIDE. DIALYSIS NURSE PRESENT IN ROOM AND PATIENT WILL SOON RECEIVE DIALYSIS. BED ALARM APPLIED. CALL LIGHT IS WITHIN REACH- PATIENT INSTRUCTED TO CALL FOR ASSISTANCE NEEDED. BEDSIDE SHIFT REPORT GIVEN TO ONCOMING NURSE.
--- NOTE | 2019-06-17 22:21 | Consultation ---
DATE OF CONSULTATION: 06/17/[address] Vann and Dr. Porfirio Calhoun. HISTORY OF PRESENT ILLNESS: Thank you very much for referring this patient. This is a 74-year-old white female, who was referred to me for evaluation of uncontrolled diabetes mellitus and hypoglycemia. The patient reportedly is a known diabetic for almost 18-20 years. She takes a combination of 70/30 insulin at home. At this time, the patient came to the hospital with history of shortness of breath. She was found to have influenza A. She has also end-stage renal failure, has been started on hemodialysis. The patient has history of hypertension, COPD, and on several medications. She also has history of hypertension. PHYSICAL EXAMINATION: GENERAL: Today, the patient is awake, but lethargic. VITAL SIGNS: Her heart rate is around 70, blood pressure 130/80 mmHg. HEENT: Essentially unremarkable. Thyroid is palpable. Clinically, she is near euthyroid. CHEST: Bilateral vesicular breathing. She has bilateral bronchospasm. She has basilar rales. CARDIOVASCULAR: First and second heart sounds. There are no third or fourth heart sounds. Ejection systolic murmur is grade 2/6. EXTREMITIES: The patient has mild pedal edema. LABORATORY DATA: Her blood sugars have been around 47 to 120 this morning. IMPRESSION: Hypoglycemia, multifactorial, altered mental status, diabetes mellitus type 2 with complication, end-stage renal failure on chronic hemodialysis, anemia, influenza, and chronic obstructive pulmonary disease. PLAN: The plan at this time is to do hemoglobin A1c and thyroid function test. Discontinue the routine long-acting insulin only, put her on the sliding scale insulin for now. Thank you again for referring this patient. I will follow this patient with you. MD DAVIS Greer/MODL /[id number]
[2019-06-17] MEDS: OSELTAMIVIR PHOSPHATE 75 MG CAP PO SCH (22:58)
[2019-06-17] MEDS: ATORVASTATIN 40 MG TAB PO SCH (22:58)
[2019-06-17] MEDS: PREGABALIN 50 MG CAP PO SCH (22:58)
--- NOTE | 2019-06-17 23:00 | NUR ---
swallow eval ordered for evaluation of possible silent aspiration, patient seen pushing water and medication out of her mouth back into the cup and choking during during medical consultant
[2019-06-17] MEDS: DIAZEPAM 5 MG TAB PO PRN (23:35)
--- NOTE | 2019-06-17 23:45 | NUR ---
patient s/p hemodialysis tx, [facility] performed procedure, patient awake alert tolerated well, patient SBP noted 160's upon completion, asymptomatic, patient placed on left side, sleeping, dressing on right chest CVC C/D/I, clamped, no bleeding noted, call light within reach, bed in lowest position, bed alarm active
[2019-06-18] VITALS (10 sets, daily range): BP systolic 110–194; BP diastolic 52–95
[2019-06-18] MEDS: ALBUTEROL/IPRATROPIUM 3 ML NEB NEB SCH ×4 (00:40→20:18)
--- NOTE | 2019-06-18 04:33 | NUR ---
patient routine vitals taken SBP @ 205/82, MD Olive Calhoun home health clinician notified for orders, call back pending
[2019-06-18] MEDS ORDERED: LABETALOL HCL 5 MG/ML 20ML VIAL IV STA (04:40)
--- NOTE | 2019-06-18 04:43 | NUR ---
MD JIMENEZ COVERING CALLED BACK INFORMED OF HYPERTENSION, GIVEN CURRENT VITALS, CURRENT MEDICAITON ON eMAR AND DOSE TIME, ORDER TO GIVE PATIENT LABETLOL IV X 1 DOSE NOW, AND REASSESS PATIENT IN 30 MINUTES FOR EFFECTIVENESS
[2019-06-18] MEDS: INSULIN REGULAR, HUMAN 100 UNIT/1 ML 3ML VIAL SQ SCH ×4 (07:30→21:00)
--- NOTE | 2019-06-18 07:30 | NUR ---
PT IN BED RESTING O2 2L NC IN PLACE,NO S/S DISCOMFORT.
[2019-06-18] MEDS: TRIAMCINOLONE ACETONIDE SCH ×2 (09:00→17:00)
[2019-06-18] MEDS: DULOXETINE HCL 30 MG DELAYED RELEASE PO SCH (09:00)
[2019-06-18] MEDS: AZITHROMYCIN 250 MG TAB PO SCH (09:24)
[2019-06-18] MEDS: AMLODIPINE BESYLATE 5 MG TAB PO SCH ×2 (09:24→17:04)
[2019-06-18] MEDS: EZETIMIBE 10 MG TAB PO SCH (09:24)
[2019-06-18] MEDS: GUAIFENESIN 600 MG TAB PO SCH ×2 (09:24→17:04)
[2019-06-18] MEDS: SODIUM BICARBONATE 650 MG TAB PO SCH ×3 (09:24→21:00)
[2019-06-18] MEDS: ISOSORBIDE MONONITRATE 30 MG TAB CR PO SCH (09:26)
[2019-06-18] MEDS: CARVEDILOL 3.125 MG TAB PO SCH ×2 (09:27→17:04)
[2019-06-18] MEDS: HYDRALAZINE HCL 25 MG TAB PO SCH ×2 (09:27→17:03)
[2019-06-18] MEDS: CEFTRIAXONE SOD 1 GM/NS 50 ML 50 ML IV SCH (09:27)
[2019-06-18] MEDS: FAMOTIDINE 20 MG TAB PO SCH ×2 (09:27→17:04)
--- NOTE | 2019-06-18 09:30 | NUR ---
[PT ASSISTED UP TO BSC MOD ASSIST.SOB NOTED ON AMBULATION,O2 SATS 2 L 92%,O2 SATS ON RA 79%
[2019-06-18] MEDS: ACETAMINOPHEN 325 MG TAB PO PRN (14:30)
--- NOTE | 2019-06-18 14:30 | NUR ---
PT C/O PORTER MEDICATED.
--- NOTE | 2019-06-18 17:46 | NUR ---
PT IN BED RESTING ,O2 3L NC IN PLACE,PT SLIGHTLY CONFUSED,DENIES PAIN,FAMILY AT BEDSIDE
--- NOTE | 2019-06-18 17:49 | Progress Note ---
DATE: 06/18/2019 SUBJECTIVE: Ms. Knowles is feeling better. There is no new complaint. REVIEW OF SYSTEMS: HEENT: Negative. PULMONARY: Negative. CARDIAC: Negative. PHYSICAL EXAMINATION: GENERAL: She is currently alert, oriented, does not seem to be in acute distress. VITAL SIGNS: Stable. Currently afebrile. HEENT: Normocephalic. Does not appear icteric. NECK: Supple. CHEST: Clear. HEART: S1 and S2. No S3, S4 or murmur. ABDOMEN: Soft. IMPRESSION: 1. Sepsis on admission, resolved. 2. Influenza A, on Tamiflu. 3. Superimposed bacterial pneumonia, better. 4. History of diabetes mellitus. Blood cultures, coagulase negative staph. Her white count is down to 9.6. She is to finish 8 days of Rocephin, 5 days of azithromycin and 8 days of Tamiflu. Discussed with the pharmacy. MD MAYNOR Ulloa/LYLE /[id number]
--- NOTE | 2019-06-18 18:45 | NUR ---
Nutrition Screen Note RD Recommendation for Physician: Continue diet as ordered Plan of Care: RD following, monitoring for tolerance and adequacy Nutrition reason for involvement:MD Consult evaluation, albumin 3.0, cardiac diet education Primary Diagnose(s): Sepsis, UTI PMH: Parkinson's disease, HTN, T2DM, Constipation, cholecystectomy Ht:71 in Wt:206.31 lb BMI:28.85 kg/m2 IBW:[address] Assessment: Initial encounter with patient. Pt with an improved PO intake. Nurse to add Swetha brink. Nurse present with RD during visit due to pt confusion. Pt is able to feed himself, denies any difficulty chewing or swallowing nor has any N,V,D Pt was eating dinner at time of visit. No known food allergies. Current Diet: Cardiac diet Malnutrition Evaluation (06/18/2019) The patient does not meet criteria for a specified degree of malnutrition at this time. Will re-evaluate at follow-up as appropriate. Diet Education Needs Assessment: Diet education not indicated at this time. Pt is somewhat confused Nutrition Care Level: elma Jaime RD, LD, [facility]
--- NOTE | 2019-06-18 19:58 | NUR ---
Received change of shift report from AM nurse. Walking rounds completed.
[2019-06-18] MEDS: PREGABALIN 50 MG CAP PO SCH (21:00)
[2019-06-18] MEDS: ATORVASTATIN 40 MG TAB PO SCH (21:00)
[2019-06-19] VITALS (8 sets, daily range): BP systolic 138–193; BP diastolic 60–75
[2019-06-19] MEDS: ALBUTEROL/IPRATROPIUM 3 ML NEB NEB SCH ×4 (00:32→13:00)
--- NOTE | 2019-06-19 01:00 | NUR ---
Patient in bed resting quitly at this time.
--- NOTE | 2019-06-19 05:00 | NUR ---
Patient ask , I cant have any water. Teaching done with patient regarding water and dialysis. Informed patient not to over do it with the water. Patient verbalized understanding of teaching.
[2019-06-19 06:10] LABS: BASOPHILS % 0.1 % (0.0-1.0); EOSINOPHILS # (AUTO) 0.4 (0.0-0.4); EOSINOPHILS % 3.6 % (0.0-6.0); HEMATOCRIT 33.8 % (34.2-44.1); HEMOGLOBIN 10.5 g/dL (12.0-16.0); LYMPHOCYTES # (AUTO) 2.8 (1.0-3.2); LYMPHOCYTES % 24.5 % (18.0-39.1); MEAN CORPUSCULAR HEMOGLOBIN 27.2 pg (28-32); MEAN CORPUSCULAR HGB CONC 31.1 g/dL (31-35); MEAN CORPUSCULAR VOLUME 87.6 fL (81-99); MONOCYTES % 8.7 % (4.4-11.3); NEUTROPHILS # (AUTO) 7.1 (2.1-6.9); NEUTROPHILS % 62.5 % (38.7-80.0); PLATELET COUNT 207 x10e3/uL (140-360); RED BLOOD COUNT 3.86 x10e6/uL (3.6-5.1)
[2019-06-19 06:31] LABS: ANION GAP 15.1 mmol/L (8-16); CALCIUM 8.2 mg/dL (8.4-10.2); CREATININE, SERUM 3.53 mg/dL (0.57-1.11); POTASSIUM 3.1 mmol/L (3.5-5.1)
[2019-06-19] MEDS: INSULIN REGULAR, HUMAN 100 UNIT/1 ML 3ML VIAL SQ SCH ×4 (07:30→21:00)
--- NOTE | 2019-06-19 07:30 | NUR ---
PT UP IN BED SLEEPING,O2 3L NC IN PLACE,NO S/S DISCOMFORT.
[2019-06-19] MEDS: FAMOTIDINE 20 MG TAB PO SCH ×2 (08:10→16:30)
[2019-06-19] MEDS: DIAZEPAM 5 MG TAB PO PRN (08:30)
[2019-06-19] MEDS: CEFTRIAXONE SOD 1 GM/NS 50 ML 50 ML IV SCH (08:45)
[2019-06-19] MEDS: AMLODIPINE BESYLATE 5 MG TAB PO SCH ×2 (09:00→17:00)
[2019-06-19] MEDS: GUAIFENESIN 600 MG TAB PO SCH ×2 (09:00→17:00)
[2019-06-19] MEDS: HYDRALAZINE HCL 25 MG TAB PO SCH ×2 (09:00→17:00)
[2019-06-19] MEDS: TRIAMCINOLONE ACETONIDE SCH ×2 (09:00→17:00)
[2019-06-19] MEDS: AZITHROMYCIN 250 MG TAB PO SCH (09:00)
[2019-06-19] MEDS: CARVEDILOL 3.125 MG TAB PO SCH ×2 (09:00→17:00)
[2019-06-19] MEDS: EZETIMIBE 10 MG TAB PO SCH (09:00)
[2019-06-19] MEDS: ISOSORBIDE MONONITRATE 30 MG TAB CR PO SCH (09:00)
[2019-06-19] MEDS: DULOXETINE HCL 30 MG DELAYED RELEASE PO SCH (09:00)
[2019-06-19] MEDS: SODIUM BICARBONATE 650 MG TAB PO SCH ×3 (09:00→20:50)
--- NOTE | 2019-06-19 10:00 | NUR ---
PT ASSISTED UP TO BSC,MIN ASSIST TOLERATED WELL.
--- NOTE | 2019-06-19 17:50 | NUR ---
PT MUCH MORE ALERT,DENIES PAIN ,NO DISTRESS NOTED.O2 [address]
[2019-06-19] MEDS: ATORVASTATIN 40 MG TAB PO SCH (20:50)
[2019-06-19] MEDS: ACETAMINOPHEN 325 MG TAB PO PRN (23:43)
[2019-06-20] VITALS (10 sets, daily range): BP systolic 140–182; BP diastolic 56–75
[2019-06-20] MEDS: ALBUTEROL/IPRATROPIUM 3 ML NEB NEB SCH ×4 (00:58→20:10)
[2019-06-20] MEDS: INSULIN REGULAR, HUMAN 100 UNIT/1 ML 3ML VIAL SQ SCH ×4 (07:30→21:00)
[2019-06-20] MEDS: FAMOTIDINE 20 MG TAB PO SCH ×2 (08:25→15:53)
[2019-06-20] MEDS: TRIAMCINOLONE ACETONIDE SCH ×2 (08:25→15:53)
[2019-06-20] MEDS: CEFTRIAXONE SOD 1 GM/NS 50 ML 50 ML IV SCH (08:25)
[2019-06-20] MEDS: HYDRALAZINE HCL 25 MG TAB PO SCH ×2 (08:25→15:55)
[2019-06-20] MEDS: INSULIN GLARGINE 100 UNITS/ML VIAL SQ SCH (08:25)
[2019-06-20] MEDS: CARVEDILOL 3.125 MG TAB PO SCH ×2 (08:26→15:55)
[2019-06-20] MEDS: DIAZEPAM 5 MG TAB PO PRN (08:26)
[2019-06-20] MEDS: EZETIMIBE 10 MG TAB PO SCH (08:26)
[2019-06-20] MEDS: SODIUM BICARBONATE 650 MG TAB PO SCH ×3 (08:26→20:07)
[2019-06-20] MEDS: DULOXETINE HCL 30 MG DELAYED RELEASE PO SCH (08:26)
[2019-06-20] MEDS: GUAIFENESIN 600 MG TAB PO SCH ×2 (08:26→15:53)
[2019-06-20] MEDS: ISOSORBIDE MONONITRATE 30 MG TAB CR PO SCH (08:26)
[2019-06-20] MEDS: AMLODIPINE BESYLATE 5 MG TAB PO SCH ×2 (08:26→15:56)
--- NOTE | 2019-06-20 11:42 | NUR ---
PT CHOSE [facility], FILED IN CHART AND WILL COMPLETE PASRR RTF AND FAX CLINICALS TO FACILITY
[2019-06-20 11:46] LABS: BASOPHILS % 0.1 % (0.0-1.0); EOSINOPHILS # (AUTO) 0.5 (0.0-0.4); EOSINOPHILS % 3.5 % (0.0-6.0); HEMATOCRIT 31.2 % (34.2-44.1); LYMPHOCYTES % 15.4 % (18.0-39.1); MEAN CORPUSCULAR HEMOGLOBIN 28.2 pg (28-32); MEAN CORPUSCULAR HGB CONC 32.1 g/dL (31-35); MEAN CORPUSCULAR VOLUME 87.9 fL (81-99); MONOCYTES % 7.8 % (4.4-11.3); NEUTROPHILS # (AUTO) 9.2 (2.1-6.9); NEUTROPHILS % 72.3 % (38.7-80.0); PLATELET COUNT 182 x10e3/uL (140-360); RED BLOOD COUNT 3.55 x10e6/uL (3.6-5.1); RED CELL DISTRIBUTION WIDTH 14.9 % (11.7-14.4)
[2019-06-20 12:13] LABS: ANION GAP 14.4 mmol/L (8-16); CALCIUM 7.8 mg/dL (8.4-10.2); CREATININE, SERUM 3.72 mg/dL (0.57-1.11); POTASSIUM 3.4 mmol/L (3.5-5.1)
[2019-06-20] MEDS ORDERED: POTASSIUM CHLORIDE 20 MEQ TAB CR PO STA (14:52)
--- NOTE | 2019-06-20 15:20 | NUR ---
EDUCATED ABOUT IMM, SIGNED, FILED IN CHART, WITH COPY LEFT WITH FAMILY AT BEDSIDE.
--- NOTE | 2019-06-20 15:44 | NUR ---
SPOKE WITH PT AND , SHE IS REALLY CONCERNED WITH THE SNF PLACEMENT AND DOES NOT WANT TO GO, SHE STATES SHE WOULD RATHER GO HOME, ASKED FOR A WALKER TO BE ABLE TO ASSIST PT AND SHE HAS BEEN USING ONE WITH THERAPY TODAY. OBTAINED SIGNATURES AND PROVIDED ROLLING WALKER. WILL LET ATTENDING KNOW SHE WOULD PREFER TO GO HOME WITH HOME HEALTH AND HER OUTPT DIALYSIS CHAIR IS ALREADY SET UP AND APPROVED.
[2019-06-20] MEDS: HEPARIN SOD (PORCINE) 1000 UNIT/ML SDV IV PRN (16:41)
[2019-06-20] MEDS: SODIUM CHLORIDE 0.9% 1000ML 2,000 ML IV PRN (16:42)
--- NOTE | 2019-06-20 19:10 | NUR ---
Report given to oncoming nurse of patient's status. HD nurse at bedside. AAOX3 to time, person, place. Respirations even and unlabored. Instructed to use call light for assistance.
[2019-06-20] MEDS: ATORVASTATIN 40 MG TAB PO SCH (20:07)
[2019-06-20] MEDS: ACETAMINOPHEN 325 MG TAB PO PRN (20:08)
--- NOTE | 2019-06-20 21:28 | NUR ---
PATIENT S/P DIALYSIS TODAY, TECH REPORTED 2.6 LITERS REMOVED, PATIENT SEEN LYING COMFORTABLY IN BED, SLEEPING, RESP EVEN AND UNLABORED, REPORTED SBP CURRENTLY 166/91,
[2019-06-21] VITALS (9 sets, daily range): BP systolic 139–199; BP diastolic 55–73
[2019-06-21] MEDS: ALBUTEROL/IPRATROPIUM 3 ML NEB NEB SCH ×4 (00:30→19:45)
[2019-06-21 06:30] LABS: ALBUMIN 2.2 g/dL (3.5-5.0); ALBUMIN/GLOBULIN RATIO 0.6 (0.8-2.0); ANION GAP 14.5 mmol/L (8-16); CREATININE, SERUM 2.98 mg/dL (0.57-1.11); POTASSIUM 3.5 mmol/L (3.5-5.1)
[2019-06-21] MEDS: INSULIN GLARGINE 100 UNITS/ML VIAL SQ SCH (06:38)
[2019-06-21] MEDS: INSULIN REGULAR, HUMAN 100 UNIT/1 ML 3ML VIAL SQ SCH ×4 (07:30→21:00)
[2019-06-21] MEDS: SODIUM BICARBONATE 650 MG TAB PO SCH ×3 (08:11→22:18)
[2019-06-21] MEDS: DIAZEPAM 5 MG TAB PO PRN (08:11)
[2019-06-21] MEDS: ISOSORBIDE MONONITRATE 30 MG TAB CR PO SCH (08:11)
[2019-06-21] MEDS: GUAIFENESIN 600 MG TAB PO SCH ×2 (08:11→16:58)
[2019-06-21] MEDS: EZETIMIBE 10 MG TAB PO SCH (08:11)
[2019-06-21] MEDS: DULOXETINE HCL 30 MG DELAYED RELEASE PO SCH (08:11)
[2019-06-21] MEDS: AMLODIPINE BESYLATE 5 MG TAB PO SCH ×2 (08:11→16:58)
[2019-06-21] MEDS: TRIAMCINOLONE ACETONIDE SCH ×2 (08:12→16:58)
[2019-06-21] MEDS: FAMOTIDINE 20 MG TAB PO SCH ×2 (08:12→16:57)
[2019-06-21] MEDS: CEFTRIAXONE SOD 1 GM/NS 50 ML 50 ML IV SCH (08:12)
[2019-06-21] MEDS: HYDRALAZINE HCL 25 MG TAB PO SCH ×2 (08:12→16:58)
[2019-06-21] MEDS: CARVEDILOL 3.125 MG TAB PO SCH ×2 (08:12→16:58)
[2019-06-21 08:28] LABS: MEAN CORPUSCULAR VOLUME 86.8 fL (81-99)
[2019-06-21 08:30] LABS: RED BLOOD COUNT 3.63 x10e6/uL (3.6-5.1)
[2019-06-21 08:31] LABS: BASOPHILS % 0.1 % (0.0-1.0); EOSINOPHILS % 3.2 % (0.0-6.0); HEMATOCRIT 31.5 % (34.2-44.1); LYMPHOCYTES # (AUTO) 2.2 (1.0-3.2); MEAN CORPUSCULAR HEMOGLOBIN 27.5 pg (28-32); MEAN CORPUSCULAR HGB CONC 31.7 g/dL (31-35); MONOCYTES % 9.1 % (4.4-11.3); NEUTROPHILS # (AUTO) 7.3 (2.1-6.9); NEUTROPHILS % 66.2 % (38.7-80.0); PLATELET COUNT 127 x10e3/uL (140-360); RED CELL DISTRIBUTION WIDTH 14.6 % (11.7-14.4)
[2019-06-21 08:32] LABS: EOSINOPHILS # (AUTO) 0.4 (0.0-0.4)
--- NOTE | 2019-06-21 09:20 | NUR ---
16F overton catheter discontinued as ordered. Tolerated well. Due to void
--- NOTE | 2019-06-21 12:38 | NUR ---
Patient voided 60ml without discomfort. post void bladder scans shows 10ml. Will continue to monitor.
--- NOTE | 2019-06-21 15:43 | NUR ---
patient voided 150cc. post void bladder scan done. 39ml noted
--- NOTE | 2019-06-21 17:18 | NUR ---
PT HAS A RW AT HOME HOME 02 DEL[facility]ED TO ROOM [facility] CHO[facility] LETTER SIGNED AND ON CHART COPY TO PT PT REQUESTING WHEELCHAIR FOR HOME USE SPOKE WITH CHICO AT [facility] WHO STATES DOCUMENTATION MUST SAY PT UNABLE TO USE WALKER FOR CIGNA HSP TO PAY FOR IT PT IS ABLE TO USE WALKER EVIDENCED BY P.T. SHIRA ENCOURAGED PT TO WORK WITH HER PCP IF SHE WANTS TO FURTHER PURSUE A WHEELCHAIR THRU [employer]IG[employer] HSP
--- NOTE | 2019-06-21 19:15 | NUR ---
Report given to oncoming nurse of patient's status. No s/s of acute distress noted. Side rails upx2, call light within reach.
[2019-06-21] MEDS: ATORVASTATIN 40 MG TAB PO SCH (22:18)
[2019-06-22] VITALS: BP 136/58
[2019-06-22 00:30] VITALS: BP 136/58
[2019-06-22] MEDS: ALBUTEROL/IPRATROPIUM 3 ML NEB NEB SCH ×2 (01:31→07:57)
[2019-06-22 04:00] VITALS: BP 145/60
--- NOTE | 2019-06-22 04:22 | NUR ---
BLOOD SUGAR 163, PATIENT C/O MODERATE PAIN UNDER RIGHT BREAST, STATES "WHEN I MOVED IN THE BED TO GET COMFORTABLE IT JUST STARTED HURTING, IT HAS HAPPENED BEFORE", PATIENT REQUESTING prn PAIN MEDICATION FOR PAIN LEVEL 4/10 RIGHT UNDER BREAST PAIN, DENIES CHEST PAIN, DENIES LEFT ARM PAIN, BED ALARM ACTIVE, CALL LIGHT WITHIN REACH
[2019-06-22 05:00] VITALS: BP 145/60
[2019-06-22] MEDS: INSULIN GLARGINE 100 UNITS/ML VIAL SQ SCH (05:00)
--- NOTE | 2019-06-22 07:26 | NUR ---
Report given to oncoming nurse MARCY of patient's status. No s/s of acute distress noted. Side rails upx2, call light within reach. bed alarm active, pending discharge possibly today, oxygen and walker at bedside for discharge patient inquiring about wheelchair for discharge
[2019-06-22] MEDS: INSULIN REGULAR, HUMAN 100 UNIT/1 ML 3ML VIAL SQ SCH (07:30)
[2019-06-22 07:48] VITALS: BP 145/64
[2019-06-22] MEDS: TRIAMCINOLONE ACETONIDE SCH (09:00)
[2019-06-22] MEDS: ISOSORBIDE MONONITRATE 30 MG TAB CR PO SCH (09:00)
[2019-06-22] MEDS: CARVEDILOL 3.125 MG TAB PO SCH ×2 (09:00→09:41)
[2019-06-22] MEDS: HYDRALAZINE HCL 25 MG TAB PO SCH ×2 (09:00→09:42)
[2019-06-22] MEDS: EZETIMIBE 10 MG TAB PO SCH (09:32)
[2019-06-22] MEDS: DULOXETINE HCL 30 MG DELAYED RELEASE PO SCH (09:32)
[2019-06-22] MEDS: SODIUM BICARBONATE 650 MG TAB PO SCH (09:32)
[2019-06-22] MEDS: GUAIFENESIN 600 MG TAB PO SCH (09:33)
--- NOTE | 2019-06-22 09:35 | NUR ---
Called Dr. Kurtis Vann on his cell made requested order to hold blood pressure medications, since patient was going to hemodialysis. Received orders to give blood pressure medications, and to discontinue the midline.
--- NOTE | 2019-06-22 09:40 | NUR ---
ORDERS FOR HOME HEALTH CARE CHOICE LETTTER SIGNED FOR [facility] (IN NETWORK WITH [facility]) COPY OF CHOICE LETTER TO PT ALONG WITH MY BUSINESS CARD IMM EXPLAINED, SIGNED BY PT AND PLACED IN CHART COPY OF IMM TO PT IN CARE TRANSITIOINS FOLDER FAXED HOME HEALTH ORDERS AND CLINICAL INFO TO [facility] AT [phone] CONFIRMATION REC'D PT DISCHARGED HOME THIS AM TO F/U WITH OP DIALYSIS TODAY AT NOON
[2019-06-22] MEDS: CEFTRIAXONE SOD 1 GM/NS 50 ML 50 ML IV SCH (09:41)
[2019-06-22] MEDS: AMLODIPINE BESYLATE 5 MG TAB PO SCH (09:41)
[2019-06-22] MEDS: FAMOTIDINE 20 MG TAB PO SCH (09:43)
--- NOTE | 2019-06-22 10:35 | NUR ---
Patient discharged home with home health, Midline discontinued prior to discharge. Patient verbalized understanding of d/c instructions. Escorted patient in wheel chair to front of hospital to meet her .
== END 2019-06-22 10:38 | disposition home health service (06) | DRG 871 ==
LOC: ER 20:00 → ERHOLD 06-12 00:03 → IMCU 06-12 03:21 → OBSVTOIN 06-13 08:44 → MED/SURG3 06-16 00:39
PROVIDERS: ADMIT Internal Medicine; ATTEND Internal Medicine
PROC: 06HY33Z Insertion of Infusion Device into Lower Vein, Percutaneous Approach (ICD-10-PCS; 2019-06-14)
PROC: 5A1D70Z Performance of Urinary Filtration, Intermittent, Less than 6 Hours Per Day (ICD-10-PCS; principal; 2019-06-15)
PROC: 0JH63XZ Insertion of Tunneled Vascular Access Device into Chest Subcutaneous Tissue and Fascia, Percutaneous Approach (ICD-10-PCS; 2019-06-15)
PROC: 02HV33Z Insertion of Infusion Device into Superior Vena Cava, Percutaneous Approach (ICD-10-PCS; 2019-06-15)
DX: A41.9 Sepsis, unspecified organism (principal); N18.6 End stage renal disease; J18.9 Pneumonia, unspecified organism; I12.0 Hypertensive chronic kidney disease with stage 5 chronic kidney disease or end stage renal disease; J44.0 Chronic obstructive pulmonary disease with (acute) lower respiratory infection; J09.X2 Influenza due to identified novel influenza A virus with other respiratory manifestations; N25.89 Other disorders resulting from impaired renal tubular function; I10 Essential (primary) hypertension; E11.649 Type 2 diabetes mellitus with hypoglycemia without coma; J43.9 Emphysema, unspecified; E66.9 Obesity, unspecified; Z68.32 Body mass index [BMI] 32.0-32.9, adult; E87.6 Hypokalemia; M54.9 Dorsalgia, unspecified
CPT/HCPCS: 36415; 36558; 71045; 71250; 72110; 72220; 74470; 76937; 77001; 80048; 80053; 80202; 81001; 82550; 82553; 82948; 83036; 83518; 83605; 83880; 84484; 85007; 85025; 85027; 85610; 85730; 86704; 86705; 86706; 87040; 87070; 87071; 87086; 87186; 87205; 87340; 87400; 90962; 93005; 94640; 96372; 96374; 97139; 99152; 99284; C1769; C1892; G0378; J0456; J0696; J1644; J1817; J2001; J2150; J2250; J2920; J2930; J3010; J7030; J7050; J7070; J7512; J7799

== ENCOUNTER 2020-02-23 05:34 | Inpatient (IN) | payer MEDICARE, OTHER ==
[2020-02-14 15:04] LABS: BASOPHILS # (AUTO) 0.1 (0.0-0.1); BASOPHILS % 0.7 % (0.0-1.0); EOSINOPHILS # (AUTO) 0.4 (0.0-0.4); EOSINOPHILS % 3.8 % (0.0-6.0); HEMATOCRIT 37.1 % (34.2-44.1); HEMOGLOBIN 11.4 g/dL (12.0-16.0); LYMPHOCYTES # (AUTO) 2.4 (1.0-3.2); LYMPHOCYTES % 22.7 % (18.0-39.1); MEAN CORPUSCULAR HEMOGLOBIN 28.4 pg (28-32); MEAN CORPUSCULAR HGB CONC 30.7 g/dL (31-35); MEAN CORPUSCULAR VOLUME 92.3 fL (81-99); MONOCYTES # (AUTO) 0.6 (0.2-0.8); NEUTROPHILS # (AUTO) 7.1 (2.1-6.9); NEUTROPHILS % 66.2 % (38.7-80.0); RED BLOOD COUNT 4.02 x10e6/uL (3.6-5.1); RED CELL DISTRIBUTION WIDTH 14.4 % (11.7-14.4)
[2020-02-14 15:09] LABS: PLATELET COUNT 40 x10e3/uL (140-360)
[2020-02-14 15:14] LABS: INR 0.9; PARTIAL THROMBOPLASTIN TIME 33.8 seconds (23.8-35.5); PROTHROMBIN TIME 12.6 seconds (11.9-14.5)
[2020-02-14 15:18] LABS: ANION GAP 17.4 mmol/L (8-16); CALCIUM 8.9 mg/dL (8.4-10.2); CREATININE, SERUM 4.14 mg/dL (0.57-1.11); POTASSIUM 4.4 mmol/L (3.5-5.1)
[2020-02-14 15:56] LABS: BASOPHILS # (AUTO) 0.1 (0.0-0.1); BASOPHILS % 0.7 % (0.0-1.0); EOSINOPHILS # (AUTO) 0.4 (0.0-0.4); EOSINOPHILS % 3.7 % (0.0-6.0); HEMATOCRIT 37.3 % (34.2-44.1); HEMOGLOBIN 11.3 g/dL (12.0-16.0); LYMPHOCYTES # (AUTO) 2.2 (1.0-3.2); LYMPHOCYTES % 21.1 % (18.0-39.1); MEAN CORPUSCULAR HEMOGLOBIN 27.8 pg (28-32); MEAN CORPUSCULAR HGB CONC 30.3 g/dL (31-35); MEAN CORPUSCULAR VOLUME 91.9 fL (81-99); MONOCYTES # (AUTO) 0.6 (0.2-0.8); MONOCYTES % 5.9 % (4.4-11.3); NEUTROPHILS % 68.1 % (38.7-80.0); RED BLOOD COUNT 4.06 x10e6/uL (3.6-5.1); RED CELL DISTRIBUTION WIDTH 14.3 % (11.7-14.4)
[2020-02-14 16:07] LABS: PLATELET COUNT 40 x10e3/uL (140-360)
[2020-02-21 15:09] LABS: BASOPHILS # (AUTO) 0.1 (0.0-0.1); BASOPHILS % 0.7 % (0.0-1.0); EOSINOPHILS # (AUTO) 0.3 (0.0-0.4); EOSINOPHILS % 3.1 % (0.0-6.0); HEMATOCRIT 35.9 % (34.2-44.1); HEMOGLOBIN 11.5 g/dL (12.0-16.0); LYMPHOCYTES # (AUTO) 2.1 (1.0-3.2); MEAN CORPUSCULAR HEMOGLOBIN 30.3 pg (28-32); MEAN CORPUSCULAR VOLUME 94.7 fL (81-99); MONOCYTES # (AUTO) 0.7 (0.2-0.8); MONOCYTES % 7.1 % (4.4-11.3); NEUTROPHILS # (AUTO) 6.9 (2.1-6.9); NEUTROPHILS % 67.8 % (38.7-80.0); RED BLOOD COUNT 3.79 x10e6/uL (3.6-5.1); RED CELL DISTRIBUTION WIDTH 14.6 % (11.7-14.4)
[2020-02-21 15:12] LABS: PLATELET COUNT 49 x10e3/uL (140-360)
[2020-02-21 15:19] LABS: INR 0.91; PARTIAL THROMBOPLASTIN TIME 31.7 seconds (23.8-35.5); PROTHROMBIN TIME 12.7 seconds (11.9-14.5)
[2020-02-21 15:26] LABS: ANION GAP 17.1 mmol/L (8-16); CALCIUM 8.9 mg/dL (8.4-10.2); CREATININE, SERUM 4.24 mg/dL (0.57-1.11); POTASSIUM 4.1 mmol/L (3.5-5.1)
[~2020-02-23] VITALS: Ht 170.2 cm; Wt 83.9 kg
[~2020-02-23 05:34] MED LIST changes: +CAPSAICIN60 GM TOP; +CYMBALTA30 MG PO; +DULCOLAX5 MG PO; +FERROUS SULFAT324 MG PO; +HYDRALAZINE HCL25 MG PO; +LASIX20 MG PO; +LEVOCETIRIZINE D5 MG PO; +LYRICA50 MG PO; +NASACORT16.9 ML; +NOVOLIN 70100 UNIT/3 SQ; +TYLENOL325 M2 PO; +VENTOLIN HFA18 GM INH; +ZANTAC150 MG PO; +ZANTAC50 MG/2 ML PO; +ZETIA10 MG PO
[2020-02-23] MEDS ORDERED: CEFAZOLIN SOD 1 GM/NS 50ML 100 ML IV ONE (06:14)
[2020-02-23] MEDS ORDERED: DEXTROSE 5% 250ML 250 ML IV ONE (06:31)
[2020-02-23] MEDS ORDERED: SODIUM CHLORIDE 0.9% 250ML 250 ML ONE (06:50)
[2020-02-23] MEDS ORDERED: LIDOCAINE 1% W/EPINEPHRINE 20 ML VIAL ONE (08:18)
[2020-02-23] MEDS ORDERED: VANCOMYCIN HCL 1 GM VIAL ONE (08:18)
[2020-02-23] MEDS ORDERED: THROMBIN FOR SOLN 5,000 UNIT VIAL ONE (08:18)
[2020-02-23] MEDS ORDERED: HEPARIN SOD/SOD CHLORIDE 1,000 ML ONE (08:50)
[2020-02-23] MEDS ORDERED: LIDOCAINE HCL (LTA) 4 ML SOLN ONE (09:50)
[2020-02-23] MEDS ORDERED: ACETAMINOPHEN 1000 MG/100 ML 100 ML IV ONE (09:50)
[2020-02-23] MEDS ORDERED: IBUPROFEN 800MG/ 200ML 200 ML IV ONE (09:50)
[2020-02-23] MEDS ORDERED: DEXAMETHASONE SOD PHOS INJ 4 MG/ML VIAL ONE ×2 (12:01→19:26)
[2020-02-23] MEDS ORDERED: ALBUTEROL SULFATE HFA 8GM INHALATION AEROSOL INH PRN (13:15)
[2020-02-23] MEDS ORDERED: DIAZEPAM 5 MG TAB PO PRN (13:15)
[2020-02-23] MEDS ORDERED: ACETAMINOPHEN 325 MG TAB PO PRN (13:15)
[2020-02-23] MEDS ORDERED: MAGNESIUM/ALUMINUM/SIMETHICONE 30 ML UDC PO PRN (13:15)
[2020-02-23] MEDS ORDERED: MORPHINE SULFATE INJ 10 MG/ML IM PRN (13:15)
[2020-02-23] MEDS ORDERED: PROMETHAZINE HCL (IM) 25 MG/ML VIAL IM PRN (13:15)
[2020-02-23] MEDS ORDERED: OXYCODONE/ACETAMINOPHEN 5-325 1 EACH TABLET PO PRN (13:15)
[2020-02-23] MEDS ORDERED: PROMETHAZINE HCL 25 MG TAB PO PRN (13:15)
[2020-02-23] MEDS ORDERED: BISACODYL 5 MG TAB EC PO PRN (13:15)
[2020-02-23] MEDS ORDERED: CEPACOL SORE THROAT LOZENGES PO PRN (13:15)
[2020-02-23] MEDS ORDERED: CARISOPRODOL 350 MG TAB PO PRN (13:15)
[2020-02-23] MEDS ORDERED: HYDRALAZINE HCL 20 MG/ML VIAL ONE (13:37)
[2020-02-23] MEDS ORDERED: MORPHINE SULFATE INJ 4 MG/ML INJ 1ML ONE (13:39)
[2020-02-23] MEDS ORDERED: CEFAZOLIN SOD 1 GM/NS 50ML 50 ML IV SCH (14:00)
[2020-02-23] MEDS ORDERED: HYDROMORPHONE 1MG/1ML INJ ONE (14:05)
[2020-02-23 16:13] VITALS: BP 134/54
[2020-02-23] MEDS: HYDRALAZINE HCL 25 MG TAB PO SCH (17:00)
[2020-02-23] MEDS: HUMULIN 70/30 VIAL SQ SCH (17:00)
[2020-02-23] MEDS ORDERED: TRIAMCINOLONE ACETONIDE SCH (17:00)
[2020-02-23] MEDS: CARVEDILOL 3.125 MG TAB PO SCH (17:00)
[2020-02-23] MEDS: AMLODIPINE BESYLATE 5 MG TAB PO SCH (17:00)
[2020-02-23 17:09] VITALS: BP 134/54
[2020-02-23] MEDS: LACTATED RINGER'S 1,000 ML IV SCH ×2 (18:04→21:35)
[2020-02-23] MEDS: CEFAZOLIN SOD 1 GM/NS 50ML 50 ML IV SCH (18:04)
[2020-02-23 18:29] VITALS: BP 134/54
[2020-02-23] MEDS ORDERED: PROPOFOL IV EMULSION 10 MG/ML 20 ML VIAL ONE (19:26)
[2020-02-23] MEDS ORDERED: SEVOFLURANE INHAL SOLN 250 ML PEN BTL ONE (19:26)
[2020-02-23] MEDS ORDERED: EPHEDRINE SULFATE INJ 50 MG/ML VIAL ONE (19:26)
[2020-02-23] MEDS ORDERED: NEOSTIGMINE 1 MG/ML 10ML VIAL ONE (19:26)
[2020-02-23] MEDS ORDERED: LIDOCAINE HCL 2% LOCAL INJ 5 ML SDV VIAL INJ ONE (19:26)
[2020-02-23] MEDS ORDERED: LIDOCAINE HCL 2% JELLY 5 ML TUBE ONE (19:26)
[2020-02-23] MEDS ORDERED: ROCURONIUM BROMIDE 10 MG/ML 5ML VIAL IV ONE (19:26)
[2020-02-23] MEDS ORDERED: GLYCOPYRROLATE INJ 0.2 MG/ML VIAL ONE (19:26)
[2020-02-23] MEDS ORDERED: ONDANSETRON HCL INJ 2MG/ML 2ML 2 MG/ML VIAL ONE (19:26)
[2020-02-23] MEDS ORDERED: MIDAZOLAM HCL 2 MG/2 ML VIAL ONE (19:35)
[2020-02-23] MEDS ORDERED: FENTANYL CITRATE/PF 100MCG/2 ML INJ ONE (19:35)
[2020-02-23 20:00] VITALS: BP 141/44
[2020-02-23] MEDS ORDERED: ZOLPIDEM TARTRATE 5 MG TAB PO PRN (21:00)
[2020-02-23 22:05] VITALS: BP 150/57
[2020-02-23] MEDS: HYDROMORPHONE 2MG/ML 2 MG/ML ML IV PRN (22:05)
[2020-02-24] VITALS (10 sets, daily range): BP systolic 124–161; BP diastolic 46–83
[2020-02-24] MEDS: CEFAZOLIN SOD 1 GM/NS 50ML 50 ML IV SCH ×2 (01:55→07:12)
[2020-02-24] MEDS: HYDROMORPHONE 2MG/ML 2 MG/ML ML IV PRN ×3 (04:00→15:18)
[2020-02-24] MEDS: LACTATED RINGER'S 1,000 ML IV SCH ×2 (05:55→13:19)
[2020-02-24] MEDS: ONDANSETRON HCL INJ 2MG/ML 2ML 2 MG/ML VIAL IV PRN ×3 (07:52→23:12)
[2020-02-24] MEDS: HUMULIN 70/30 VIAL SQ SCH ×3 (08:00→15:51)
[2020-02-24] MEDS ORDERED: EZETIMIBE 10 MG TAB PO SCH (09:00)
[2020-02-24] MEDS ORDERED: LORATADINE 10 MG TAB PO SCH (09:00)
[2020-02-24] MEDS ORDERED: ATORVASTATIN 40 MG TAB PO SCH ×2 (09:00→21:00)
[2020-02-24] MEDS: HYDRALAZINE HCL 25 MG TAB PO SCH ×2 (09:00→16:29)
[2020-02-24] MEDS: CARVEDILOL 3.125 MG TAB PO SCH ×2 (09:00→16:29)
[2020-02-24] MEDS: TRIAMCINOLONE ACETONIDE NS SCH ×2 (09:00→15:46)
[2020-02-24] MEDS ORDERED: FUROSEMIDE 20 MG TAB PO SCH (09:00)
[2020-02-24] MEDS: DULOXETINE HCL 30 MG DELAYED RELEASE PO SCH (09:50)
[2020-02-24] MEDS: FERROUS SULFATE 325 MG TAB PO SCH (09:50)
[2020-02-24] MEDS: AMLODIPINE BESYLATE 5 MG TAB PO SCH ×2 (09:51→16:30)
[2020-02-24] MEDS ORDERED: NORCO 7.5-3251 EACH PO (16:02)
[2020-02-24] MEDS ORDERED: PROMETHAZINE 25MG/ NS 50ML (IV) IV PRN (17:00)
[2020-02-24 17:22] LABS: ANION GAP 17.3 mmol/L (8-16); CALCIUM 8.2 mg/dL (8.4-10.2); CREATININE, SERUM 4.72 mg/dL (0.57-1.11); POTASSIUM 5.3 mmol/L (3.5-5.1)
[2020-02-24] MEDS ORDERED: DEXTROSE 50% SYRINGE 50 ML IV PRN (18:15)
[2020-02-24] MEDS: SODIUM BICARBONATE 8.4% SYRING 150 ML in DEXTROSE 5% 1,000 ML IV SCH (18:34)
[2020-02-24] MEDS ORDERED: SOD POLYSTYRENE SULFONATE SUSP 15 GM/60 ML BTL PO ONE ×2 (18:45→19:00)
[2020-02-24] MEDS ORDERED: SOD POLYSTYRENE SULFONATE SUSP 15 GM/60 ML BTL PR ONE (19:15)
[2020-02-24] MEDS: INSULIN REGULAR, HUMAN 100 UNIT/1 ML 3ML VIAL SQ SCH (21:00)
[2020-02-24 21:19] LABS: BILIRUBIN,URINE NEGATIVE (NEGATIVE); CLARITY,URINE SL CLOUDY (CLEAR); COLOR,URINE YELLOW (YELLOW); KETONES,URINE NEGATIVE (NEGATIVE); LEUKOCYTE ESTERASE ,URINE TRACE (NEGATIVE); NITRITE,URINE NEGATIVE (NEGATIVE); PROTEIN,URINE DIPSTICK >=300 (NEGATIVE); URINE UROBILINOGEN 0.2 mg/dL (0.2 - 1)
[2020-02-24 21:29] LABS: BACTERIA,URINE MODERATE /HPF; EPITHELIAL CELLS,URINE MODERATE /LPF; RBC,URINE 0-5 /HPF (0-5)
[2020-02-25] VITALS (8 sets, daily range): BP systolic 128–171; BP diastolic 49–94
[2020-02-25] MEDS: SODIUM BICARBONATE 8.4% SYRING 150 ML in DEXTROSE 5% 1,000 ML IV SCH (04:58)
[2020-02-25] MEDS: ACETAMINOPHEN 325 MG TAB PO PRN ×3 (05:20→17:34)
[2020-02-25 05:31] LABS: ALBUMIN/GLOBULIN RATIO 0.9 (0.8-2.0); ANION GAP 18.3 mmol/L (8-16); CALCIUM 7.9 mg/dL (8.4-10.2); CREATININE, SERUM 4.92 mg/dL (0.57-1.11); POTASSIUM 4.3 mmol/L (3.5-5.1)
[2020-02-25] MEDS: TRIAMCINOLONE ACETONIDE NS SCH (08:48)
[2020-02-25] MEDS: CARVEDILOL 3.125 MG TAB PO SCH ×2 (09:07→17:30)
[2020-02-25] MEDS: INSULIN REGULAR, HUMAN 100 UNIT/1 ML 3ML VIAL SQ SCH ×4 (09:08→21:02)
[2020-02-25] MEDS: DULOXETINE HCL 30 MG DELAYED RELEASE PO SCH (09:08)
[2020-02-25] MEDS: FERROUS SULFATE 325 MG TAB PO SCH (09:08)
[2020-02-25] MEDS ORDERED: ONDANSETRON HCL INJ 2MG/ML 2ML 2 MG/ML VIAL IV PRN (11:45)
[2020-02-25] MEDS ORDERED: ALBUTEROL/IPRATROPIUM 3 ML NEB NEB PRN (11:45)
[2020-02-25] MEDS ORDERED: ONDANSETRON HCL 4 MG ORAL DISINTEGRATING TAB PO PRN (11:45)
[2020-02-25] MEDS: FAMOTIDINE 20 MG TAB PO SCH ×2 (12:37→17:28)
[2020-02-25] MEDS: CEFTRIAXONE SOD 1 GM/NS 50 ML 50 ML IV SCH (12:37)
[2020-02-25] MEDS: ALBUTEROL/IPRATROPIUM 3 ML NEB NEB SCH ×2 (13:10→23:45)
[2020-02-25 15:36] LABS: ABG HCO3 23 mmol/L (22-26); ABG PCO2 44 mmHg (35-45); ABG PH 7.32 (7.35-7.45); ABG PO2 51 mmHg (80-105); ABG TCO2 24
[2020-02-25] MEDS: METHYLPREDNISOLONE SOD SUCC 40 MG/ML VIAL 1ML IV SCH (21:10)
[2020-02-25] MEDS: HYDRALAZINE HCL 20 MG/ML VIAL IV PRN ×2 (21:39→22:15)
[2020-02-26] VITALS (10 sets, daily range): BP systolic 114–194; BP diastolic 57–105
[2020-02-26] MEDS: HYDROMORPHONE 1MG/1ML INJ IV PRN ×3 (01:00→22:15)
[2020-02-26] MEDS: HYDRALAZINE HCL 20 MG/ML VIAL IV PRN ×2 (01:34→12:25)
[2020-02-26] MEDS: ALBUTEROL/IPRATROPIUM 3 ML NEB NEB SCH ×4 (02:03→19:45)
[2020-02-26 06:21] LABS: CALCIUM 7.8 mg/dL (8.4-10.2); CREATININE, SERUM 4.39 mg/dL (0.57-1.11); PHOSPHORUS 6.6 MG/DL (2.3-4.7)
[2020-02-26] MEDS: METHYLPREDNISOLONE SOD SUCC 40 MG/ML VIAL 1ML IV SCH ×2 (09:05→21:00)
[2020-02-26] MEDS: FUROSEMIDE INJ 10 MG/ML 4 ML VIAL IV SCH (09:05)
[2020-02-26] MEDS: FAMOTIDINE 20 MG TAB PO SCH ×2 (09:05→16:38)
[2020-02-26] MEDS: DULOXETINE HCL 30 MG DELAYED RELEASE PO SCH (09:06)
[2020-02-26] MEDS: CARVEDILOL 3.125 MG TAB PO SCH ×2 (09:06→16:39)
[2020-02-26] MEDS: INSULIN REGULAR, HUMAN 100 UNIT/1 ML 3ML VIAL SQ SCH ×4 (09:24→22:18)
[2020-02-26] MEDS: ACETAMINOPHEN 325 MG TAB PO PRN (09:25)
[2020-02-26] MEDS: CEFTRIAXONE SOD 1 GM/NS 50 ML 50 ML IV SCH (12:23)
[2020-02-26] MEDS: LABETALOL HCL 5 MG/ML 20ML VIAL IV PRN (16:40)
[2020-02-26] MEDS: DIAZEPAM 5 MG TAB PO PRN (16:57)
[2020-02-27] VITALS (12 sets, daily range): BP systolic 136–199; BP diastolic 46–103
[2020-02-27] MEDS: ALBUTEROL/IPRATROPIUM 3 ML NEB NEB SCH ×4 (00:35→19:47)
[2020-02-27] MEDS: LABETALOL HCL 5 MG/ML 20ML VIAL IV PRN (01:07)
[2020-02-27] MEDS: DIAZEPAM 5 MG TAB PO PRN ×3 (01:08→20:17)
[2020-02-27] MEDS ORDERED: AMLODIPINE BESYLATE 5 MG TAB PO ONE (02:00)
[2020-02-27] MEDS ORDERED: AMLODIPINE BESYLATE 5 MG TAB ONE (02:01)
[2020-02-27 05:22] LABS: HEMATOCRIT 32.8 % (34.2-44.1); HEMOGLOBIN 10.3 g/dL (12.0-16.0); LYMPHOCYTES # (AUTO) 0.5 (1.0-3.2); LYMPHOCYTES % 5.4 % (18.0-39.1); MEAN CORPUSCULAR HGB CONC 31.4 g/dL (31-35); MEAN CORPUSCULAR VOLUME 92.4 fL (81-99); MONOCYTES # (AUTO) 0.2 (0.2-0.8); MONOCYTES % 2.4 % (4.4-11.3); NEUTROPHILS # (AUTO) 8.4 (2.1-6.9); NEUTROPHILS % 91.5 % (38.7-80.0); PLATELET COUNT 194 x10e3/uL (140-360); RED BLOOD COUNT 3.55 x10e6/uL (3.6-5.1)
[2020-02-27 05:40] LABS: ANION GAP 19.7 mmol/L (8-16); CREATININE, SERUM 4.27 mg/dL (0.57-1.11); POTASSIUM 3.7 mmol/L (3.5-5.1)
[2020-02-27] MEDS: FUROSEMIDE INJ 10 MG/ML 4 ML VIAL IV SCH (08:13)
[2020-02-27] MEDS: DULOXETINE HCL 30 MG DELAYED RELEASE PO SCH (08:13)
[2020-02-27] MEDS: FAMOTIDINE 20 MG TAB PO SCH ×2 (08:13→17:43)
[2020-02-27] MEDS: METHYLPREDNISOLONE SOD SUCC 40 MG/ML VIAL 1ML IV SCH ×2 (08:13→20:17)
[2020-02-27] MEDS: CARVEDILOL 3.125 MG TAB PO SCH ×2 (08:13→17:43)
[2020-02-27] MEDS: INSULIN REGULAR, HUMAN 100 UNIT/1 ML 3ML VIAL SQ SCH ×4 (08:26→20:41)
[2020-02-27] MEDS ORDERED: HYDROCODONE/APAP 7.5MG-325MG 1 EA TAB PO PRN (08:30)
[2020-02-27] MEDS ORDERED: CLONIDINE HCL 0.1 MG TAB PO PRN (08:30)
[2020-02-27] MEDS ORDERED: NIFEDIPINE CR 30 MG TAB PO ONE (09:00)
[2020-02-27] MEDS: CEFTRIAXONE SOD 1 GM/NS 50 ML 50 ML IV SCH (12:01)
[2020-02-27] MEDS: NIFEDIPINE CR 30 MG TAB PO SCH (17:44)
[2020-02-28] VITALS: BP 148/46
[2020-02-28] MEDS: ALBUTEROL/IPRATROPIUM 3 ML NEB NEB SCH ×3 (00:30→12:35)
[2020-02-28] MEDS: HYDROMORPHONE 1MG/1ML INJ IV PRN (02:00)
[2020-02-28 04:00] VITALS: BP 128/56
[2020-02-28] MEDS: NIFEDIPINE CR 30 MG TAB PO SCH ×2 (06:34→18:31)
[2020-02-28] MEDS: CARVEDILOL 3.125 MG TAB PO SCH ×2 (07:31→18:30)
[2020-02-28] MEDS: DULOXETINE HCL 30 MG DELAYED RELEASE PO SCH (07:31)
[2020-02-28] MEDS: METHYLPREDNISOLONE SOD SUCC 40 MG/ML VIAL 1ML IV SCH (07:31)
[2020-02-28] MEDS: FUROSEMIDE INJ 10 MG/ML 4 ML VIAL IV SCH (07:31)
[2020-02-28] MEDS: FAMOTIDINE 20 MG TAB PO SCH ×2 (07:31→18:29)
[2020-02-28] MEDS: INSULIN REGULAR, HUMAN 100 UNIT/1 ML 3ML VIAL SQ SCH ×3 (07:32→18:30)
[2020-02-28] MEDS: DIAZEPAM 5 MG TAB PO PRN (07:32)
[2020-02-28 08:00] VITALS: BP 135/54
[2020-02-28 08:08] VITALS: BP 135/54
[2020-02-28 12:00] VITALS: BP 160/48
[2020-02-28] MEDS: CEFTRIAXONE SOD 1 GM/NS 50 ML 50 ML IV SCH (12:43)
[2020-02-28 16:00] VITALS: BP 157/55
[2020-02-28 19:31] LABS: CREATININE,URINE RANDOM 60.73 mg/dL (47-110)
== END 2020-02-28 20:10 | disposition home or self-care (01) | DRG 471 ==
LOC: OR 05:34 → PACU V 13:58 → MED/SURG 16:07 → IMCU 02-24 21:41 → OBSVTOIN 02-25 08:59
PROVIDERS: ADMIT Neurological Surgery; ATTEND Neurological Surgery
PROC: 0RT30ZZ Resection of Cervical Vertebral Disc, Open Approach (ICD-10-PCS; principal; 2020-02-25)
PROC: 0RG20J0 Fusion of 2 or more Cervical Vertebral Joints with Synthetic Substitute, Anterior Approach, Anterior Column, Open Approach (ICD-10-PCS; 2020-02-25)
PROC: 07DR0ZZ Extraction of Iliac Bone Marrow, Open Approach (ICD-10-PCS; 2020-02-25)
DX: M47.22 Other spondylosis with radiculopathy, cervical region (principal); G93.41 Metabolic encephalopathy; N18.5 Chronic kidney disease, stage 5; I12.0 Hypertensive chronic kidney disease with stage 5 chronic kidney disease or end stage renal disease; J44.1 Chronic obstructive pulmonary disease with (acute) exacerbation; F19.939 Other psychoactive substance use, unspecified with withdrawal, unspecified; N39.0 Urinary tract infection, site not specified; E11.22 Type 2 diabetes mellitus with diabetic chronic kidney disease; E78.5 Hyperlipidemia, unspecified; F32.9 Major depressive disorder, single episode, unspecified; F41.9 Anxiety disorder, unspecified; G89.18 Other acute postprocedural pain; Z11.59 Encounter for screening for other viral diseases
CPT/HCPCS: 36415; 36600; 71045; 71046; 72040; 76700; 77003; 80048; 80053; 81001; 82575; 82805; 82948; 84100; 84132; 85025; 85049; 85610; 85730; 86850; 86900; 86945; 88304; 93005; 94640; 97139; C1713; G0378; J0360; J0690; J0696; J1100; J1170; J1817; J1940; J2001; J2250; J2270; J2405; J2550; J2710; J2920; J3010; J3370; J7050; J7070; J7121; P9034; U0002

== ENCOUNTER → 2020-03-15 | Outpatient (CLI) | payer MEDICARE, OTHER ==
[~2020-03-15] MED LIST changes: +NORCO 7.5-3251 EACH PO
--- NOTE | 2020-03-15 10:32 | Diagnostic Imaging Report ---
Cervical spine, 5 views. History: Postop. Discussion: The cervical spine is visualized on the lateral view from C1 through the top of C7. There is normal lordotic curvature. Anterior plate and screws are present from C5 through C7, intact. Flexion and extension views demonstrate no evidence of subluxation. The prevertebral soft tissues are within normal limits. IMPRESSION: Status post C5-C7 ACDF without evidence of instability on flexion and extension views. Signed by: Shawn Sims on 03/15/2020 10:29 AM
== END ==
LOC: RAD 09:56
PROVIDERS: ATTEND Neurological Surgery
DX: M50.20 Other cervical disc displacement, unspecified cervical region (principal); M43.22 Fusion of spine, cervical region
CPT/HCPCS: 72050